=== PATIENT | female | born 1975 | race Caucasian/White ===

== ENCOUNTER → 2017-01-15 | Outpatient (REF) | payer OTHER | LOC: M LAB REF 17:11 | PROVIDERS: ATTEND Nurse Practitioner Family | DX: R82.99 Other abnormal findings in urine (principal) ==

== ENCOUNTER → 2017-07-20 | Outpatient (CLI) | payer OTHER ==
[2017-07-20 13:08] LABS: HEMOGLOBIN 14.3 g/dl (12.0-16.0); MEAN CORPUSCULAR HEMOGLOBIN 30.6 pg (27.0-33.0); MEAN CORPUSCULAR HGB CONC 33.3 g/dl (32.0-36.5); MEAN CORPUSCULAR VOLUME 91.9 fl (80.0-96.0); PLATELET COUNT, AUTOMATED 161 10^3/uL (150-450); RED BLOOD COUNT 4.68 10^6/uL (4.00-5.40); RED CELL DISTRIBUTION WIDTH 13.7 % (11.5-14.5); WHITE BLOOD COUNT 5.2 10^3/uL (4.0-10.0)
[2017-07-20 13:40] LABS: ALBUMIN 3.4 GM/DL (3.2-5.2); ALBUMIN/GLOBULIN RATIO 0.76 (1.00-1.93); ALKALINE PHOSPHATASE 116 U/L (45-117); ALT/SGPT 137 U/L (12-78); ANION GAP 5 MEQ/L (8-16); AST/SGOT 210 U/L (7-37); BLOOD UREA NITROGEN 10 MG/DL (7-18); CARBON DIOXIDE LEVEL 28 MEQ/L (21-32); CHLORIDE LEVEL 108 MEQ/L (98-107); CREATININE FOR GFR 0.67 MG/DL (0.55-1.30); GLOMERULAR FILTRATION RATE > 60.0 (>60); GLUCOSE, FASTING 102 MG/DL (70-100); POTASSIUM SERUM 3.9 MEQ/L (3.5-5.1); SODIUM LEVEL 141 MEQ/L (136-145); THYROXINE (T4) 9.8 UG/DL (4.5-12.0); TOTAL PROTEIN 7.9 GM/DL (6.4-8.2)
[2017-07-21 14:15] LABS: H PYLORI SERUM QUANT IgG ABY 0.36 (0.00-0.79)
== END ==
LOC: M LAB 12:33
DX: K29.70 Gastritis, unspecified, without bleeding (principal); R53.83 Other fatigue; L65.9 Nonscarring hair loss, unspecified
CPT/HCPCS: 84443

== ENCOUNTER → 2017-12-14 | Outpatient (CLI) | payer OTHER ==
[2017-12-14 10:30] LABS: ALBUMIN 3.1 GM/DL (3.2-5.2); ALKALINE PHOSPHATASE 108 U/L (45-117); ALT/SGPT 157 U/L (12-78); ANION GAP 8 MEQ/L (8-16); AST/SGOT 217 U/L (7-37); BILIRUBIN,DIRECT 0.6 MG/DL (0.0-0.2); BILIRUBIN,TOTAL 1.1 MG/DL (0.2-1.0); BLOOD UREA NITROGEN 13 MG/DL (7-18); CALCIUM LEVEL 8.4 MG/DL (8.5-10.1); CARBON DIOXIDE LEVEL 28 MEQ/L (21-32); CHLORIDE LEVEL 109 MEQ/L (98-107); CREATININE FOR GFR 0.67 MG/DL (0.55-1.30); GLOMERULAR FILTRATION RATE > 60.0 (>60); GLUCOSE, FASTING 93 MG/DL (70-100); PHOSPHORUS LEVEL 5.1 MG/DL (2.5-4.9); POTASSIUM SERUM 3.9 MEQ/L (3.5-5.1); SODIUM LEVEL 145 MEQ/L (136-145); TOTAL PROTEIN 7.5 GM/DL (6.4-8.2)
[2017-12-18 00:07] LABS: HEPATITIS C QUANTITATION 371370 IU/mL (.)
== END ==
LOC: M LAB 09:10
DX: B18.2 Chronic viral hepatitis C (principal)
CPT/HCPCS: 80076

== ENCOUNTER 2019-05-10 15:19 | Emergency (ER) | payer OTHER ==
[~2019-05-10] VITALS: Ht 162.6 cm; Wt 88.8 kg
[2019-05-10 15:19] VITALS: BP 128/71
[2019-05-10] MEDS ORDERED: OMEP-218 (15:27)
[2019-05-10] MEDS ORDERED: KETOROLAC 60 MG/2 ML VIAL (J1885) IM ONE (15:45)
--- NOTE | 2019-05-11 07:55 | REP ---
REASON: Pain and swelling. No trauma. FINDINGS: The compartments are symmetric and relatively well maintained. There is no acute fracture or destructive osseous lesion. Electronically Signed by Sourav Quiroga DO 05/11/2019 09:23 A
== END 2019-05-10 17:04 | disposition home or self-care (01) ==
LOC: M ED 15:19
DX: M25.561 Pain in right knee (principal); I83.91 Asymptomatic varicose veins of right lower extremity; Z79.899 Other long term (current) drug therapy
CPT/HCPCS: 73564; 96372; 99284; J1885

== ENCOUNTER 2019-08-21 13:08 | Emergency (ER) | payer OTHER ==
[~2019-08-21] VITALS: Ht 165.1 cm; Wt 94.1 kg
[~2019-08-21 13:08] MED LIST: OMEP-218
[2019-08-21 14:47] LABS: BASO % 0.6 % (0.0-1.0); EOS # 0.1 10^3/uL (0.0-0.5); EOS % 2.5 % (0.0-3.0); HEMATOCRIT 37.4 % (36.0-47.0); HEMOGLOBIN 12.7 g/dl (12.0-15.5); LYMPH # 1.3 10^3/uL (1.5-5.0); LYMPH % 26.4 % (24.0-44.0); MEAN CORPUSCULAR HEMOGLOBIN 32.7 pg (27.0-33.0); MEAN CORPUSCULAR VOLUME 96.4 fl (80.0-96.0); MONO # 0.4 10^3/uL (0.0-0.8); MONO % 8.6 % (0.0-5.0); NEUTROPHILS % 61.7 % (36.0-66.0); RED BLOOD COUNT 3.88 10^6/uL (4.00-5.40); WHITE BLOOD COUNT 4.8 10^3/uL (4.0-10.0)
[2019-08-21 15:04] LABS: HCG, SERUM QUALITATIVE NEGATIVE (NEGATIVE)
--- NOTE | 2019-08-21 15:05 | REP ---
Bilateral lower extremity Duplex Doppler venous ultrasound: Real time compression and duplex Doppler interrogation of the bilateral lower extremity deep venous system is performed. Bilaterally, the common femoral, superficial femoral and popliteal veins are fully compressible with transducer pressure and demonstrate normal spontaneous and phasic flow, without evidence of deep venous thrombosis. Impression: No evidence of deep venous thrombosis of the bilateral lower extremity femoral popliteal venous system. Electronically Signed by Blake Otto MD 08/21/2019 02:57 P
[2019-08-21 15:08] LABS: BLOOD UREA NITROGEN 12 MG/DL (7-18); CALCIUM LEVEL 7.8 MG/DL (8.5-10.1); CARBON DIOXIDE LEVEL 24 MEQ/L (21-32); CHLORIDE LEVEL 109 MEQ/L (98-107); CREATININE FOR GFR 0.59 MG/DL (0.55-1.30); GLOMERULAR FILTRATION RATE > 60.0 (>58); GLUCOSE, FASTING 95 MG/DL (70-100); NT-PRO BNP 91 PG/ML (<125); POTASSIUM SERUM 3.7 MEQ/L (3.5-5.1); SODIUM LEVEL 140 MEQ/L (136-145)
[2019-08-21 15:23] LABS: PLATELET COUNT, AUTOMATED 97 10^3/uL (150-450)
[2019-08-21 15:29] VITALS: BP 124/76
== END 2019-08-21 16:20 | disposition home or self-care (01) ==
LOC: M ED 13:08
DX: D69.6 Thrombocytopenia, unspecified (principal); R60.0 Localized edema; F11.20 Opioid dependence, uncomplicated; Z86.19 Personal history of other infectious and parasitic diseases; K29.70 Gastritis, unspecified, without bleeding; Z87.891 Personal history of nicotine dependence

== ENCOUNTER → 2019-11-19 | Outpatient (REF) | payer OTHER, MEDICAID ==
[2019-11-19 17:39] LABS: BASO % 0.6 % (0.0-1.0); EOS # 0.1 10^3/uL (0.0-0.5); HEMATOCRIT 36.8 % (36.0-47.0); HEMOGLOBIN 12.3 g/dl (12.0-15.5); LYMPH # 1.3 10^3/uL (1.5-5.0); LYMPH % 39.2 % (24.0-44.0); MEAN CORPUSCULAR HEMOGLOBIN 32.1 pg (27.0-33.0); MEAN CORPUSCULAR HGB CONC 33.4 g/dl (32.0-36.5); MEAN CORPUSCULAR VOLUME 96.1 fl (80.0-96.0); MONO # 0.4 10^3/uL (0.0-0.8); MONO % 12.6 % (0.0-5.0); NEUTROPHILS # 1.6 10^3/uL (1.5-8.5); NEUTROPHILS % 45.6 % (36.0-66.0); PLATELET COUNT, AUTOMATED 104 10^3/uL (150-450); RED BLOOD COUNT 3.83 10^6/uL (4.00-5.40); WHITE BLOOD COUNT 3.4 10^3/uL (4.0-10.0)
[2019-11-19 17:56] LABS: ALBUMIN 2.2 GM/DL (3.2-5.2); ALT/SGPT 37 U/L (12-78); BILIRUBIN,TOTAL 2.2 MG/DL (0.2-1.0); BLOOD UREA NITROGEN 7 MG/DL (7-18); CARBON DIOXIDE LEVEL 28 MEQ/L (21-32); CHLORIDE LEVEL 108 MEQ/L (98-107); CHOLESTEROL LEVEL 126 MG/DL (<200); CHOLESTEROL RISK RATIO 3.073 (<5); CREATININE FOR GFR 0.52 MG/DL (0.55-1.30); FREE T4 0.88 NG/DL (0.76-1.46); GLOMERULAR FILTRATION RATE > 60.0 (>58); GLUCOSE, FASTING 93 MG/DL (70-100); HDL CHOLESTEROL 41 MG/DL (>40); LDL CHOLESTEROL 67 MG/DL (<100); NON-HDL-C 85 MG/DL; POTASSIUM SERUM 4.1 MEQ/L (3.5-5.1); SODIUM LEVEL 140 MEQ/L (136-145); TOTAL 25(OH) VITAMIN D 11.8 NG/ML (30.0-100.0); TRIGLYCERIDES LEVEL 92 MG/DL (<150)
[2019-11-19 18:14] LABS: HEMOGLOBIN A1c 4.2 %
[2019-11-19 18:35] LABS: HIV 1&2 SCREEN CENTAUR NEGATIVE (NEGATIVE)
[2019-11-21 09:14] LABS: HEPATITIS B SURFACE ANTIBODY POSITIVE (POSITIVE)
[2019-11-21 09:23] LABS: HEPATITIS B SURFACE ANTIGEN NEGATIVE (NEGATIVE)
[2019-11-21 10:00] LABS: HEPATITIS C VIRUS ABY INDEX > 11.0 INDEX (<0.8)
[2019-11-26 23:13] LABS: HEPATITIS A IgG TOTAL Positive (Negative); HEPATITIS B CORE ANTIBODY IGG Negative (Negative); HEPATITIS C QUANTITATION 127610 IU/mL (.); HEPATITIS C VIRUS GENOTYPE 1b (.)
== END ==
LOC: M LAB REF 16:44
PROVIDERS: ATTEND Nurse Practitioner Family
DX: R60.0 Localized edema (principal); B17.10 Acute hepatitis C without hepatic coma

== ENCOUNTER 2020-05-20 14:21 | Emergency (ER) | payer OTHER ==
[~2020-05-20] VITALS: Ht 165.1 cm; Wt 88.6 kg
[2020-05-20] MEDS ORDERED: KETOROLAC 30 MG/ML 1ML VIAL IV ONE (15:00)
--- NOTE | 2020-05-20 15:18 | REP ---
INDICATION: cp. COMPARISON: Comparison chest x-ray July 07, 2014.. TECHNIQUE: Sitting AP portable chest x-ray. FINDINGS: Today's view is rotated slightly to the left and taken at a lesser level of inspiration than on the prior study. There is increased density behind the heart in the left lower lobe and this obscures the left hemidiaphragm on today's chest x-ray. There is also platelike atelectasis in the left base. Pulmonary vasculature is somewhat congested bilaterally. No right-sided infiltrate is seen. No bony abnormality. IMPRESSION: Suspected infiltrate left lower lobe obscuring left hemidiaphragm. A small quantity of pleural fluid cannot be excluded. There is also platelike atelectasis in the left base. Some vascular congestion. <Electronically signed by Ricky Chirinos > 05/20/20 [id number]
[2020-05-20 15:21] LABS: BASO % 0.3 % (0.0-1.0); EOS # 0.1 10^3/uL (0.0-0.5); EOS % 0.7 % (0.0-3.0); HEMATOCRIT 39.6 % (36.0-47.0); HEMOGLOBIN 12.9 g/dl (12.0-15.5); LYMPH # 1.1 10^3/uL (1.5-5.0); MEAN CORPUSCULAR HEMOGLOBIN 31.8 pg (27.0-33.0); MEAN CORPUSCULAR HGB CONC 32.6 g/dl (32.0-36.5); MEAN CORPUSCULAR VOLUME 97.5 fl (80.0-96.0); MONO # 0.6 10^3/uL (0.0-0.8); MONO % 9.1 % (0.0-5.0); NEUTROPHILS # 5.1 10^3/uL (1.5-8.5); NEUTROPHILS % 73.6 % (36.0-66.0); PLATELET COUNT, AUTOMATED 167 10^3/uL (150-450); RED BLOOD COUNT 4.06 10^6/uL (4.00-5.40); WHITE BLOOD COUNT 6.9 10^3/uL (4.0-10.0)
[2020-05-20] MEDS ORDERED: ISOVUE-370 76% 100ML VIAL As Ordered ONE (15:33)
--- NOTE | 2020-05-20 16:11 | REP ---
INDICATION: h/o PE. COMPARISON: None TECHNIQUE: 100 cc Isovue 370 FINDINGS: There is less than optimal visualization of the pulmonary arterial vasculature to such a degree that small pulmonary emboli could be obscured. No large 1st, 2nd, or even 3rd order pulmonary emboli are identified. Limited evaluation of the thoracic aorta shows no gross abnormality. There is no evidence of mediastinal or hilar adenopathy. There is a small left pleural effusion. The osseous structures are within normal limits. Evaluation of the lung palomino shows patchy opacities throughout the left lower lobe with a round 3.7 x 2.7 by 2.8 cm sized mass like area of possible consolidation. The imaged upper abdomen shows ascites and splenomegaly along with a nodular hepatic surface. IMPRESSION: 1. There is no evidence of a pulmonary embolus, however, the examination is limited as described above. 2. Small left pleural effusion with abnormal left lower lobe findings as described above. Pneumonia versus atelectasis versus possible neoplasm. These findings represent a change when compared to lung base images obtained during abdominal and pelvic CT scanning of 04/24/2016. 3. Upper abdominal findings as described above. The ascites and appearance of the liver suggests cirrhosis but this needs to be correlated clinically. Those findings represent a change compared to the prior abdominal and pelvic CT scanning of 04/24/2016. Splenomegaly seen today was appreciated on that prior exam. <Electronically signed by Sourav Quiroga > 05/20/20 [id number]
[2020-05-20] MEDS ORDERED: DOXY100C37 PO (16:50)
[2020-05-20 17:32] VITALS: BP 132/61
--- NOTE | 2020-05-21 10:56 | ED PDOC ---
Post-Departure Follow-Up dr kelley and [facility] faxed formal report of cta chest for fu Hansa Tillman MD May 21, 2020 10:56
== END 2020-05-20 17:35 | disposition home or self-care (01) ==
LOC: EDBD 14:21 → M ED 14:21
DX: J18.9 Pneumonia, unspecified organism (principal); Z86.19 Personal history of other infectious and parasitic diseases; F19.10 Other psychoactive substance abuse, uncomplicated
CPT/HCPCS: 36415; 71045; 71275; 80047; 85025; 96374; 99284; J1885; Q9967

== ENCOUNTER 2020-06-03 16:35 | Inpatient (IN) | payer OTHER ==
[~2020-06-03] VITALS: Ht 165.1 cm; Wt 86.7 kg
[~2020-06-03 16:35] MED LIST changes: +DOXY100C37 PO
[2020-06-03 19:13] LABS: BASO % 0.3 % (0.0-1.0); EOS % 0.2 % (0.0-3.0); HEMATOCRIT 38.7 % (36.0-47.0); HEMOGLOBIN 12.7 g/dl (12.0-15.5); LYMPH # 1.2 10^3/uL (1.5-5.0); MEAN CORPUSCULAR HEMOGLOBIN 32.7 pg (27.0-33.0); MEAN CORPUSCULAR HGB CONC 32.8 g/dl (32.0-36.5); MEAN CORPUSCULAR VOLUME 99.7 fl (80.0-96.0); MONO # 1.6 10^3/uL (0.0-0.8); MONO % 10.2 % (0.0-5.0); NEUTROPHILS # 12.3 10^3/uL (1.5-8.5); NEUTROPHILS % 80.8 % (36.0-66.0); PLATELET COUNT, AUTOMATED 197 10^3/uL (150-450); RED BLOOD COUNT 3.88 10^6/uL (4.00-5.40); WHITE BLOOD COUNT 15.2 10^3/uL (4.0-10.0)
[2020-06-03 19:33] LABS: ALBUMIN 1.9 GM/DL (3.2-5.2); ALT/SGPT 52 U/L (12-78); AMYLASE 36 U/L (25-115); BILIRUBIN,DIRECT 4.4 MG/DL (0.0-0.2); BILIRUBIN,TOTAL 6.5 MG/DL (0.2-1.0); BLOOD UREA NITROGEN 22 MG/DL (7-18); CALCIUM LEVEL 8.5 MG/DL (8.5-10.1); CARBON DIOXIDE LEVEL 28 MEQ/L (21-32); CHLORIDE LEVEL 100 MEQ/L (98-107); CREATININE FOR GFR 0.87 MG/DL (0.55-1.30); GLOMERULAR FILTRATION RATE > 60.0 (>58); GLUCOSE, FASTING 77 MG/DL (70-100); LIPASE 110 U/L (73-393); NT-PRO BNP 85 PG/ML (<125); POTASSIUM SERUM 3.9 MEQ/L (3.5-5.1); SODIUM LEVEL 135 MEQ/L (136-145); TOTAL PROTEIN 7.4 GM/DL (6.4-8.2)
[2020-06-03 19:34] LABS: HCG, SERUM QUALITATIVE NEGATIVE (NEGATIVE)
[2020-06-03 19:37] LABS: INR 1.28; PROTHROMBIN TIME 16.3 SECONDS (12.5-14.3)
[2020-06-03 19:38] LABS: PARTIAL THROMBOPLASTIN TIME 35.5 SECONDS (24.2-38.5)
[2020-06-03] MEDS ORDERED: ISOVUE-370 76% 100ML VIAL As Ordered ONE (19:50)
[2020-06-03] MEDS ORDERED: PIPERACILLIN/TAZOBACTAM SOD 4.5 GM in D5W MINI-BAG PLUS 50 ML IV ONE (20:15)
[2020-06-03] MEDS ORDERED: NS 1,000 ML IV ONE (20:15)
[2020-06-03] MEDS ORDERED: IBUP200T45 PO (20:44)
--- NOTE | 2020-06-03 21:01 | REPVR ---
PROCEDURE INFORMATION: Exam: US Duplex Left Lower Extremity Veins, Limited Exam date and time: 06/03/2020 7:17 PM Age: 44 years old Clinical indication: Edema, localized; Lower extremity, left; Additional info: Swelling TECHNIQUE: Imaging protocol: Real-time Duplex ultrasound of the Left Lower Extremity with 2-D locke scale, color Doppler flow and spectral waveform analysis with image documentation. Limited exam focused on the left lower extremity veins. COMPARISON: US Duplex, Ext LOWER veins, bilat 08/21/2019 2:50 PM FINDINGS: Left deep veins: The common femoral, femoral and popliteal veins are patent without thrombus. Normal compressibility, augmentation response and Doppler waveforms. Left superficial veins: Saphenofemoral junction is patent without thrombus. Soft tissues: Unremarkable. IMPRESSION: No evidence of deep vein thrombosis from the left common femoral to the popliteal veins. Electronically signed by: Onel Martínez On 06/03/2020 21:01:26 PM
--- NOTE | 2020-06-03 21:40 | REPVR ---
PROCEDURE INFORMATION: Exam: CT Abdomen And Pelvis With Contrast Exam date and time: 06/03/2020 8:03 PM Age: 44 years old Clinical indication: Abdominal pain; Generalized; Additional info: Ascites, abdominal pain TECHNIQUE: Imaging protocol: Computed tomography of the abdomen and pelvis with intravenous contrast. Radiation optimization: All CT scans at this facility use at least one of these dose optimization techniques: automated exposure control; mA and/or kV adjustment per patient size (includes targeted exams where dose is matched to clinical indication); or iterative reconstruction. Contrast material: ISOVUE 370; Contrast volume: 100 ml; Contrast route: INTRAVENOUS (IV); COMPARISON: CT ABD PELVIS W/O CONTRAST 04/24/2016 12:51 PM FINDINGS: Lungs: Atelectasis or consolidation of the left lower lobe. Pleural space: There is a moderate left pleural effusion with pleural enhancement enhancement and mild edema in the left paramediastinal fat. Liver: The liver has a shrunken nodular cirrhotic morphology. No liver masses are seen. Gallbladder and bile ducts: The gallbladder is distended. No gallbladder calculi or wall thickening are seen. Pancreas: Normal. No ductal dilation. Spleen: Mild splenomegaly. Adrenal glands: Normal. No mass. Kidneys and ureters: Normal. No hydronephrosis. Stomach and bowel: Unremarkable. No obstruction. No mucosal thickening. Appendix: No evidence of appendicitis. Intraperitoneal space: Moderate volume of ascites in the abdomen and pelvis. Vasculature: Portal vein is patent. Gastroesophageal and mesenteric varices are noted. Aorta is normal size. No aneurysm or dissection. Lymph nodes: Unremarkable. No enlarged lymph nodes. Urinary bladder: Unremarkable as visualized. Reproductive: Unremarkable as visualized. Bones/joints: There are degenerative changes in the spine and pelvis. Soft tissues: Generalized subcutaneous edema. IMPRESSION: 1. Cirrhotic liver morphology with moderate volume of abdominal and pelvic ascites, gastroesophageal and mesenteric varices, and splenomegaly. 2. Distended gallbladder. Consider gallbladder ultrasound follow-up if there is concern for acute cholecystitis. 3. Left pleural effusion and basilar airspace consolidation. Peripheral enhancement in the effusion raises concern for infection. See chest CT report. Electronically signed by: Vidal Winters On 06/03/2020 21:40:19 PM
--- NOTE | 2020-06-03 21:46 | REPVR ---
PROCEDURE INFORMATION: Exam: CT Angiography Chest With Contrast Exam date and time: 06/03/2020 8:03 PM Age: 44 years old Clinical indication: Shortness of breath; Additional info: Ascites, abdominal pain, SOB TECHNIQUE: Imaging protocol: Computed tomographic angiography of the chest with intravenous contrast. 3D rendering (Not supervised by radiologist): MIP and/or 3D reconstructed images were created by the technologist. Radiation optimization: All CT scans at this facility use at least one of these dose optimization techniques: automated exposure control; mA and/or kV adjustment per patient size (includes targeted exams where dose is matched to clinical indication); or iterative reconstruction. Contrast material: ISOVUE 370; Contrast volume: 100 ml; Contrast route: INTRAVENOUS (IV); COMPARISON: CT ANGIO CHEST 05/20/2020 3:36 PM FINDINGS: Pulmonary arteries: Normal. No pulmonary emboli. Aorta: Unremarkable. No aortic aneurysm. No aortic dissection. Lungs: Airspace consolidation and volume loss in the left lung. Right lung is clear. Airways are clear. 5 mm noncalcified nodule in the right lower lobe. Pleural space: There is a large left pleural effusion. Mild pleural enhancement is noted in the inferior component of the effusion. There is a separate smaller fusion in the upper left hemithorax. No pleural effusion on the right. No pneumothorax. Heart: No cardiomegaly. No pericardial effusion. Mild edema in the left pericardial fat. Lymph nodes: Unremarkable. No enlarged lymph nodes. Bones/joints: Unremarkable. No acute fracture. Soft tissues: Unremarkable. IMPRESSION: 1. Large left pleural effusion with pleural enhancement concerning for empyema. 2. Airspace consolidation and volume loss in the left lung. 3. 5 mm right lower lobe nodule. For patients at low risk (minimal or absent history of smoking and of other known risk factors), no routine follow-up is indicated. For patients at high risk (history of smoking or of other known risk factors), consider optional CT Chest at 12 months. (Reference: Rahel) 4. See abdomen CT report for abdominal findings. REFERENCES: Rahel Cordon et al. Guidelines for Management of Incidental Pulmonary Nodules Detected on CT Images: From the Fleischner Society 2017. Radiology. 2017;284(1):228-243. Electronically signed by: Vidal Winters On 06/03/2020 21:46:36 PM
[2020-06-03 22:08] LABS: NT-PRO BNP 84 PG/ML (<125)
[2020-06-03] MEDS ORDERED: LEVALBUTEROL 1.25 MG/0.5 ML CONCENTRATE NEB NEB PRN (22:45)
[2020-06-03] MEDS ORDERED: BISACODYL 10 MG SUPP PR PRN (22:45)
[2020-06-03] MEDS ORDERED: ACETAMINOPHEN TAB 650MG DOSE (2X325MG) PO PRN (22:45)
[2020-06-03 22:53] LABS: HCG, SERUM QUALITATIVE NEGATIVE (NEGATIVE)
--- NOTE | 2020-06-03 23:12 | HPEPDOC ---
[facility] Medical History & Physical Date of Admission Jun 03, 2020 Date of Service: Jun 03, 2020 Other Provider Charity PEÑA Attending Physician: JUDY MASON MD History and Physical TIME OF SERVICE: 11 PM CHIEF COMPLAINT:, Abdominal swelling HISTORY OF PRESENT ILLNESS: This 44-year-old female presented to her PCP with complaints of dry cough without runny nose and without muscle aches and was diagnosed with left-sided pneumonia. She was started on doxycycline which she from May 20 to May 28, but during the course of taking the medication she noticed that her abdomen became swollen and she developed left lower abdominal pressure. She also developed bilateral leg swelling with the left leg being more swollen than the right, and has been told that her eyes look more yellow than usual. Despite completing the course of antibiotics, her cough has persisted and she had a fever of about 100.8 at home. The patient came to the hospital at the request of her PCP, who according to the patient felt that the abdominal swelling and lower leg swelling may be related to the antibiotics. REVIEW OF SYSTEMS: 12 point review of systems negative except as listed in HPI PAST MEDICAL/ SURGICAL HISTORY: Hepatitis C diagnosed 12 years ago, she didn't complete treatment Thrombocytopenia, likely due to reduced thrombopoietin production in the setting of liver failure Remote history of anxiety Has had a hernia repair SOCIAL HISTORY: She is a former smoker She drinks alcohol socially She doesn't use recreational drugs She has a remote history of heroin use about 20 years ago FAMILY HISTORY: Her sister has diabetes. Her mother, maternal aunt, and maternal cousin had breast cancer ALLERGIES: Please see below. HOME MEDICATIONS: Please see below. PHYSICAL EXAMINATION: VITAL SIGNS: Please see below. GEN: well-nourished / well developed/ slightly anxious INTEGUMENT: not flushed/ jaundice HEENT: lips acyanotic /mucus membranes moist and pink / sclera icteric/ + abdominojugular reflux CVS: RRR/NMRG/ radial pulses intact / +2 BLE extremity edema , more prominent at the left LUNGS: able to speak full sentences without stopping to take a breath / no coughing / lungs are clear to auscultation bilaterally on room air ABDOMEN: Contour ( distended) / firm / soft & slightly tender with palpation MSK/EXTREMITIES: NCAT / range of motion intact in all 4 extremities NEURO: CN 2-12 are grossly intact / speech is not dysarthric PSYCH: alert and oriented to person place and time/ able to understand and follow all commands LABORATORY DATA: 06/04/20 06:21 IMAGING: CT chest."IMPRESSION: 1. Large left pleural effusion with pleural enhancement concerning for empyema. 2. Airspace consolidation and volume loss in the left lung. 3. 5 mm right lower lobe nodule. For patients at low risk (minimal or absent history of smoking and of other known risk factors), no routine follow-up is indicated. For patients at high risk (history of smoking or of other known risk factors), consider optional CT Chest at 12 months. (Reference: Rahel) 4. See abdomen CT report for abdominal findings." CT abdomen and pelvis "IMPRESSION: 1. Cirrhotic liver morphology with moderate volume of abdominal and pelvic ascites, gastroesophageal and mesenteric varices, and splenomegaly. 2. Distended gallbladder. Consider gallbladder ultrasound follow-up if there is concern for acute cholecystitis. 3. Left pleural effusion and basilar airspace consolidation. Peripheral enhancement in the effusion raises concern for infection. See chest CT report." Left lower extremity ultrasound "IMPRESSION: No evidence of deep vein thrombosis from the left common femoral to the popliteal veins." MICROBIOLOGY: Please see below. ASSESSMENT: Ms. Dong is a 44-year-old female with a history of liver cirrhosis likely secondary to hepatitis C who presented with complaints of persistent cough, and acute onset of abdominal swelling and bilateral lower extremity swelling after completing a course of doxycycline. Her symptoms are likely due to decompensated liver failure possibly triggered by doxycycline use. She also has of a large left-sided pleural effusion. PLAN: 1. Decompensated liver cirrhosis She has multiple complications including portal hypertension based on the presence of esophageal, gastric, and mesenteric versus along with splenomegaly. Dr. Echeverria for evaluation of thrombocytopenia, which is likely due to reduced thrombopoietin production. The liver cirrhosis is likely due to untreated hepatitis C, but the acute decompensation may be due to doxycycline which can cause hepatotoxicity MELD Score = 18 points Plan: Admit to medical floor/ f/u strict Is and Os and daily weights / since his new onset ascites, I will ask the daytime team to IR consult for diagnostic paracentesis and analysis of the fluid to rule out spontaneous bacterial peritonitis and determine the SAAG score / AFTER paracentesis she may be started on Spironolactone 50mg PO w Lasix 20mg PO (which can be adjusted as needed but maintain a ratio of 100:40 ) / I will hold off additional antibiotics until after the paracentesis / since her MELD score is greater than 15 she should be referred to a Belt Tender on an out patient basis to determine if she is a candidate for liver transplant after completing treatment for Hep C; because she has esophageal varices, she should also have an EGD done on an out patient basis to determine the grade/severit of the varices and whether she is a candidate for propranolol 2. Pleural Effusion This may be related to portal hypertension or empyema in the setting of recent pneumonia. Plan: Follow-up with Dr. Multani to determine if she needs thoracentesis 3. SIRS Her WBC # and HR are elevated. The source may be SBP or empyema. She received Zosyn in the ER Plan: The daytime team may resume antibiotics after paracentesis and/or thoracentesis once we have confirmed the source of infection 4. Lactic acidosis Plan: f/u repeat lactic acid DVT PROPHYLAXIS: SCDs pending possible procedures DISPOSITION: home after more than 2 midnight's stay Vital Signs Vital Signs Date Time Temp Pulse Resp B/P (MAP) Pulse Ox O2 Delivery O2 Flow Rate FiO2 06/03/20 21:29 98.4 104 20 126/65 (85) 99 06/03/20 16:36 Room Air Laboratory Data Labs 24H Laboratory Tests 2 06/03/20 18:28: Immature Granulocyte % (Auto) 0.5, Neutrophils (%) (Auto) 80.8H, Lymphocytes (%) (Auto) 8.0L, Monocytes (%) (Auto) 10.2H, Eosinophils (%) (Auto) 0.2, Basophils (%) (Auto) 0.3, Neutrophils # (Auto) 12.3H, Lymphocytes # (Auto) 1.2L, Monocytes # (Auto) 1.6H, Eosinophils # (Auto) 0.0, Basophils # (Auto) 0.0, Nucleated Red Blood Cells % (auto) 0.0, Prothrombin Time 16.3H, Prothromb Time International Ratio 1.28, Activated Partial Thromboplast Time 35.5, Anion Gap 7L, Glomerular Filtration Rate > 60.0, Calcium Level 8.5, Total Bilirubin 6.5H, Direct Bilirubin 4.4H, Aspartate Amino Transf (AST/SGOT) 115H, Alanine Aminotransferase (ALT/SGPT) 52, Alkaline Phosphatase 143H, AG-Uhv-[id number]-Type Natriuretic Peptide 85, Total Protein 7.4, Albumin 1.9L, Albumin/Globulin Ratio 0.3L, Amylase Level 36, Lipase 110, Human Chorionic Gonadotropin, Qual NEGATIVE 06/03/20 19:00: Lactic Acid Level 3.1*H 06/03/20 21:00: Urine Color CRYSTAL, Urine Appearance HAZY, Urine pH 6.0, Urine Specific [place] 1.020, Urine Protein 1+H, Urine Glucose (UA) NEGATIVE, Urine Ketones NEGATIVE, Urine Blood NEGATIVE, Urine Nitrite NEGATIVE, Urine Bilirubin 1+H, Urine Urobilinogen 4.0H, Urine Leukocyte Esterase NEGATIVE, Urine WBC (Auto) 9H, Urine RBC (Auto) 1, Urine Hyaline Casts (Auto) 4, Urine Bacteria (Auto) NEGATIVE, Urine Squamous Epithelial Cells 1, Urine Mucus (Auto) SMALL, Urine Sperm (Auto) 06/03/20 21:20: BY-[id number]-Type Natriuretic Peptide 84, Human Chorionic Gonadotropin, Qual NEGATIVE CBC/BMP Laboratory Tests 06/03/20 18:28 Microbiology Microbiology 06/03/20 Blood Culture, Received Pending 06/03/20 Blood Culture, Received Pending Home Medications Scheduled PRN Ibuprofen (Ibu-200) 200 Mg Tablet, 400 MG PO Q6H PRN for PAIN Allergies Coded Allergies: No Known Allergies (Verified , 02/01/07) A-FIB/CHADSVASC A-FIB History Current/History of A-Fib/PAF?: No Current PO Anticoag Therapy: No JUDY MASON MD Jun 03, 2020 23:12
[2020-06-04] VITALS (17 sets, daily range): BP systolic 104–158; BP diastolic 55–78
[2020-06-04] MEDS: KCL 20MEQ IN D5/NS 1000ML 1,000 ML IV SCH ×2 (00:14→12:41)
[2020-06-04 01:06] LABS: RSV AMPLIFICATION NEGATIVE (NEGATIVE)
[2020-06-04] MEDS: LEVALBUTEROL 1.25 MG/0.5 ML CONCENTRATE NEB NEB SCH ×4 (04:46→18:19)
[2020-06-04 06:45] LABS: BASO # 0.1 10^3/uL (0.0-0.2); BASO % 0.5 % (0.0-1.0); EOS # 0.2 10^3/uL (0.0-0.5); EOS % 1.8 % (0.0-3.0); HEMATOCRIT 33.6 % (36.0-47.0); LYMPH # 0.4 10^3/uL (1.5-5.0); LYMPH % 4.2 % (24.0-44.0); MEAN CORPUSCULAR HEMOGLOBIN 32.8 pg (27.0-33.0); MEAN CORPUSCULAR HGB CONC 32.7 g/dl (32.0-36.5); MEAN CORPUSCULAR VOLUME 100.3 fl (80.0-96.0); MONO # 1.1 10^3/uL (0.0-0.8); MONO % 11.3 % (0.0-5.0); NEUTROPHILS # 8.3 10^3/uL (1.5-8.5); NEUTROPHILS % 81.6 % (36.0-66.0); PLATELET COUNT, AUTOMATED 155 10^3/uL (150-450); RED BLOOD COUNT 3.35 10^6/uL (4.00-5.40); WHITE BLOOD COUNT 10.1 10^3/uL (4.0-10.0)
[2020-06-04] MEDS: ONDANSETRON 4MG/2ML VIAL IV PRN (06:45)
[2020-06-04 06:56] LABS: INR 1.46; PROTHROMBIN TIME 18.1 SECONDS (12.5-14.3)
[2020-06-04 06:57] LABS: PARTIAL THROMBOPLASTIN TIME 37.4 SECONDS (24.2-38.5)
[2020-06-04 07:21] LABS: ALBUMIN 1.6 GM/DL (3.2-5.2); ALT/SGPT 43 U/L (12-78); BILIRUBIN,TOTAL 5.5 MG/DL (0.2-1.0); BLOOD UREA NITROGEN 20 MG/DL (7-18); CALCIUM LEVEL 7.8 MG/DL (8.5-10.1); CARBON DIOXIDE LEVEL 28 MEQ/L (21-32); CHLORIDE LEVEL 102 MEQ/L (98-107); CHOLESTEROL LEVEL 71 MG/DL (< 200); CPK CREATINE PHOSPHOKINASE 32 U/L (26-192); GLOMERULAR FILTRATION RATE > 60.0 (>58); GLUCOSE, FASTING 134 MG/DL (70-100); LDH LACTATE DEHYDROGENASE 198 U/L (84-246); PHOSPHORUS LEVEL 3.4 MG/DL (2.5-4.9); POTASSIUM SERUM 3.8 MEQ/L (3.5-5.1); SODIUM LEVEL 136 MEQ/L (136-145); TOTAL PROTEIN 6.4 GM/DL (6.4-8.2); TRIGLYCERIDES LEVEL 104 MG/DL (<150)
--- NOTE | 2020-06-04 08:57 | REP ---
INDICATION: pleural effusion. COMPARISON: Comparison chest x-ray May 20, 2020. TECHNIQUE: Two views.. FINDINGS: There is a large amount of pleural fluid in the left hemithorax opacifying the lower 2/3 of the left hemithorax. There is appearance of some loculated fluid superiorly and laterally on the left. The right lung is well inflated and clear. The right pleural angles are sharp. Heart is not felt to be enlarged. No bony abnormality is seen. Monitoring electrodes are noted. IMPRESSION: Large left pleural effusion. Much increased from the prior study.. <Electronically signed by Ricky Chirinos > 06/04/20 [id number]
[2020-06-04] MEDS: MOM 30ML SUSPENSION UDC PO SCH (09:00)
[2020-06-04] MEDS: DOCUSATE SODIUM 100MG CAPSULE PO SCH ×2 (09:00→21:02)
[2020-06-04] MEDS: PANTOPRAZOLE 40MG TAB (PROTONIX) PO SCH (09:00)
[2020-06-04] MEDS: HEPARIN SOD (PORCINE) 5000UNITS/ML 1ML VIAL/SYRINGE SC SCH ×2 (09:46→21:02)
[2020-06-04] MEDS ORDERED: flumazeniL 0.5 MG/5 ML VIAL As Ordered ONE (10:22)
[2020-06-04] MEDS ORDERED: MIDAZOLAM INJ 2MG/2ML VIAL (J2250 PER 1MG) As Ordered ONE (10:22)
[2020-06-04] MEDS ORDERED: LIDOCAINE 1% MDV 20ML VIAL As Ordered ONE (10:23)
[2020-06-04] MEDS ORDERED: KETOROLAC 30 MG/ML 1ML VIAL As Ordered ONE (10:28)
[2020-06-04] MEDS ORDERED: MIDAZOLAM INJ 2MG/2ML VIAL (J2250 PER 1MG) IV STA ×3 (10:30)
[2020-06-04] MEDS ORDERED: LIDOCAINE 1% MDV 20ML VIAL SC ONE ×2 (10:30)
[2020-06-04] MEDS ORDERED: KETOROLAC 30 MG/ML 1ML VIAL IV ONE (10:45)
[2020-06-04 11:46] LABS: APPEARANCE, BODY FLUID CLOTTED (CLEAR); PLEURAL FL COLOR RED (COLORLESS); SOURCE, BODY FLUID PLEURAL
[2020-06-04 11:49] LABS: PH BODY FLUID 7.383 UNITS (NOT ESTABLISHED); SOURCE, BODY FLUID pH PLEURAL
--- NOTE | 2020-06-04 11:49 | RO ---
OPERATIVE NOTE DATE OF OPERATION: 06/04/2020 PREPROCEDURE DIAGNOSIS: Left pleural effusion. POSTPROCEDURE DIAGNOSIS: Left pleural effusion. SURGEON: Rangel Multani M.D. PROCEDURE: Insertion of left lateral posterior chest tube. DESCRIPTION OF PROCEDURE: Under satisfactory moderate sedation eventually achieved with 6 mg of Versed, the patient was prepped and draped in the usual sterile fashion. Incision was made and tunnel was created in the chest with minimal difficulty. A #24 chest tube was placed and secured to the chest wall with #2 Tyvek suture. It drained 800 mL of serosanguineous fluid. The fluid was sent for requisite studies including cytology, hematology, and chemistries. The patient tolerated the procedure well. Chest x-ray is pending.
[2020-06-04 12:42] LABS: AMYLASE, BODY FLUID 27 U/L (NOT ESTABLISHED); CHOLESTEROL, BODY FLUID < 50 MG/DL (NOT ESTABLISHED); LDH, BODY FLUID 488 U/L (NOT ESTABLISHED); SOURCE, BODY FLUID ALBUMIN PLEURAL; SOURCE, BODY FLUID AMYLASE PLEURAL; SOURCE, BODY FLUID CHOL PLEURAL; SOURCE, BODY FLUID GLUCOSE PLEURAL; SOURCE, BODY FLUID LDH PLEURAL; SOURCE, BODY FLUID TOT PROTEIN PLEURAL; SOURCE, BODY FLUID TRIG PLEURAL; TOTAL PROTEIN, BODY FLUID 4.4 G/DL (NOT ESTABLISHED); TRIGLYCERIDE, BODY FLUID 49 MG/DL (NOT ESTABLISHED)
--- NOTE | 2020-06-04 12:44 | CR ---
CONSULTATION DATE: 06/04/2020 REASON FOR CONSULTATION: The patient is seen at the request of the hospital service and the emergency room for a pleural effusion with accompanying fevers. HISTORY OF PRESENT ILLNESS: The patient is a 44-year-old white female whose story starts in and around May 20 when she came to the emergency room complaining of fever and chills. She had a slight cough, but no sputum production. She also complained of chest pain in her left chest, which increased with taking a deep breath. She was told that she had pneumonia and was put on doxycycline 100 mg every 12 hours x10 days. Her fevers and sweats have persisted since then and the chest pain is becoming worse, particularly in the last two days. She also noted increased abdominal swelling and leg swelling. There is still no significant cough or sputum production. She has been taking her temperature throughout her course since early May and it is low-grade between 100.1 and 100.8. She still is having sweats. She does not complain of shortness of breath except with more moderate activity. PAST MEDICAL ILLNESSES: 1. Hepatitis C diagnosed 12 years ago. 2. Thrombocytopenia. 3. Anxiety. PAST SURGICAL HISTORY: Hernia repair. HOME MEDICATIONS: Ibuprofen p.r.n. pain TRAVEL HISTORY: She traveled to [place] last year. No travel history to the [facility] or foreign travel. EXPOSURES: No dogs, pets, birds, or cats at home. No known exposure to tuberculosis. 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 There is no asbestos exposure. 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 She has been abstinent since having checked into rehab at that time. She no longer uses any recreational drugs. She drinks alcohol socially and she does not smoke, although she was a former smoker many years ago. FAMILY HISTORY: Sister with diabetes. Mother, maternal aunt, and maternal cousin had breast cancer. ALLERGIES: None. REVIEW OF SYSTEMS: Constitutional: See HPI. Eyes: Has not noticed that she is jaundice. Without diplopia. Without amaurosis fugax. Nose without epistaxis. Mouth: Has her own teeth. Respiratory: See HPI. Cardiac: Without prior myocardial infarctions, orthopnea, or paroxysmal nocturnal dyspnea. Has noted increasing leg edema. Of note is that she has never been told that she has a heart murmur. GI: Some nausea without vomiting; without diarrhea, constipation, melena, hematochezia, or abdominal pain. : Without dysuria or hematuria. Neurologic: Without paresthesias, paralysis, or seizures. Psychiatric: Without pathological anxiety, depression, or psychosis. Endocrine: Without diabetes or thyroid disease. PHYSICAL EXAMINATION: GENERAL: Well-developed obese white female, in no acute respiratory distress. VITAL SIGNS: Temperature 102.3 with a heart rate of 114 in sinus rhythm. Respiratory rate of 22 without the use of accessory muscle. She was 91% saturated on room and her blood pressure 158/72. EYES: Pupils equal and reactive to light. Extraocular muscles intact. Sclerae are definitely icteric. NOSE: Without deformity. MOUTH: Shows her mucous membranes to be pink and moist. Lips and gums with no lesions. There is no thrush. Her teeth are in good repair. HEAD: Normocephalic. NECK: Supple. There is no jugular venous distention (JVD). No subcutaneous emphysema. Trachea is midline. She has 2+ carotid pulses. There is a transmitted murmur into her carotids. LUNGS: Show markedly decreased breath sounds, E:A egophony, and a dull percussion note on the left side. The right side shows normal vesicular sounds with a full percussion note. CARDIAC: Shows a systolic ejection murmur grade 2-3 at the right upper sternal border, which radiates to the carotids. I cannot feel her PMI. S1 and S2 are normal. ABDOMEN: Soft and nontender. Bowel sounds are positive. She is obese and I cannot detect a fluid wave. There is no hepatomegaly. No CVA tenderness. EXTREMITIES: Show 1+ pretibial edema. No calf tenderness. No differential swelling of the upper extremities. Her left leg is slightly more edematous than her right leg, however. NEUROLOGIC: Cranial nerves 2-12 intact. Normal gross motor and gross sensation. Gait is not tested. PSYCHIATRIC: Shows her to be awake, alert, and oriented x3 with appropriate mood and affect and conversational. INVESTIGATIONS: Her white count last night was 15.2 down to 10.1 today after starting antibiotics. Hemoglobin and hematocrit is 11.0 and 33.6 down from 12.7 and 38.7 after hydration. Platelet count is 155,000 with a differential that shows 81% neutrophils, 4% lymphocytes, and 11% monocytes. There were no immature forms or toxic granulations. Her chemistries this morning show normal electrolytes with a BUN and creatinine of 20 and 0.8 respectively. Glucose is 134 with a calcium of 7.8 with corresponding albumin of 1.6 down from 1.9 from last night. Her total bilirubin is 5.5 down from 6.5 yesterday in the emergency room. AST and ALT are 43 and 87 respectively. Amylase and lipase are 36 and 100 respectively within normal limits. PT/INR 18.1 and 1.46 respectively with a PTT of 37 seconds. She is COVID negative. RSV is negative. Influenza A and B are negative. There is no blood gas on her today or yesterday. IMAGING: Her chest x-ray shows a dense opacity in the right lower hemithorax and there is also an opacity in the lateral upper hemithorax. It looks to be a possible air fluid level on the lateral film near the apex. Her CT angiogram done last night confirms a very large pleural effusion. It looks to be somewhat loculated particularly in the upper extent, which does not communicate with the lower extent. She has ascites and a lumpy, bumpy, knobbly liver consistent with cirrhosis. Pancreas looks normal, and her adrenals are of normal configuration. There is no pericardial effusion. There is no mediastinal lymphadenopathy paratracheally; however, there are a few nodes along the aortic arch. IMPRESSION: 1. Pleural effusion and possible empyema. 2. Severe compression of left lung, particularly in the lower lobe. 3. Ascites. 4. Cirrhosis. 5. Jaundice secondary to the cirrhosis. 6. Status post hepatitis C, probably the cause of her cirrhosis. 7. Possible empyema. PLAN AND DISCUSSION: I will place a chest tube immediately. We will send it for the requisite studies to include cytologies, bacteriologies, chemistries, and hematologies. She is already on antibiotics consisting of Zosyn.
--- NOTE | 2020-06-04 12:47 | REP ---
INDICATION: s/p CT placement. 10:58 a.m. film. COMPARISON: Comparison chest x-ray is from 02/14 5 a.m. on this date. TECHNIQUE: Portable upright AP chest radiograph. FINDINGS: A left chest tube is been passed along the left hemidiaphragm. The amount of pleural fluid in the left chest is improved although pleural thickening and/or fluid persists along the lateral chest wall. There is a small quantity of air in the left pleural space and rounded density overlies the heart consistent with atelectatic lung. The right lung is clear.. IMPRESSION: Improved left pleural effusion status post left chest tube placement. Left lower lobe atelectasis with some subpulmonic air adjacent to the chest tube.. <Electronically signed by Ricky Chirinos > 06/04/20 [id number]
[2020-06-04] MEDS: PERCOCET 5MG/325MG TAB PO PRN (13:23)
[2020-06-04] MEDS: PIPERACILLIN/TAZOBACTAM SOD 3.375 GM in D5W MINI-BAG PLUS 50 ML IV SCH ×2 (14:36→21:02)
[2020-06-04] MEDS: VANCOMYCIN HCL 1,000 MG, VIAL MATE ADAPTER 1 EACH in D5W 250 ML IV SCH (16:31)
[2020-06-04] MEDS: NORCO, ANEXSIA 5/325MG TABLET (HYDROcodone/ACETAMINOPHEN) PO PRN (21:03)
--- NOTE | 2020-06-04 21:07 | IPNPDOC ---
Text Note Date of Service The patient was seen on 06/04/20. NOTE SUBJECTIVE: Febrile this am to 102.3. Complaining of left sided chest pain worse on deep breaths. Reports that her abdomen feels less tight and less bloated. VITAL SIGNS: Please see below. GEN: well-nourished / well developed/ slightly anxious HEENT: lips acyanotic /mucus membranes moist and pink / sclera icteric/ + abdominojugular reflux CVS: RRR/NMRG/ radial pulses intact / +2 BLE extremity edema , more prominent at the left LUNGS: diminished breath sounds on courtney left otherwise clear to auscultation. ABDOMEN: Mildly distended, soft, nontender, normal bowel sounds, ascites present. Extremities ; Bilateral pedal edema MSK/EXTREMITIES: NCAT / range of motion intact in all 4 extremities NEURO: CN 2-12 are grossly intact / speech is not dysarthric PSYCH: alert and oriented to person place and time/ able to understand and follow all commands Labs and Radiology: reviewed ASSESSMENT and plan: Ms. Dong is a 44-year-old female with a history of liver cirrhosis likely secondary to hepatitis C who presented with complaints of persistent cough, and acute onset of abdominal swelling and bilateral lower extremity swelling after completing a course of doxycycline. She was found to have decompensated liver cirrhosis and left sided pleural effusion. Pleural effusion/ Empyema/Sepsis s/p chest tube placement very thick and hemorrhagic Fluid work up has been sent Empirically started on vanc and zosyn. Decompensated liver cirrhosis with thrombocytopenia, portal hypertension, ascites due to untreated Hepatitis C. 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 MELD Score = 18 points Will start on lasix and aldactone. Cholestatic Jaundice due to cirrhosis of liver with congestion. Lactic acidosis probably due to cirrhosis of liver and infection DVT PROPHYLAXIS: SCDs VS,Fishbone, I+O VS, Fishbone, I+O Laboratory Tests 06/04/20 06:21 Vital Signs Date Time Temp Pulse Resp B/P (MAP) Pulse Ox O2 Delivery O2 Flow Rate FiO2 06/04/20 16:00 4.0 06/04/20 15:50 97.6 90 18 104/59 (74) 97 Nasal Cannula I&O- Last 24 Hours up to 6 AM 06/04/20 06:59 Intake Total 1225 ml Balance 1225 ml BETSY VERGARA MD Jun 04, 2020 21:06
[2020-06-05] VITALS: BP 105/59
[2020-06-05] MEDS: VANCOMYCIN HCL 1,000 MG, VIAL MATE ADAPTER 1 EACH in D5W 250 ML IV SCH ×2 (00:05→06:57)
[2020-06-05] MEDS: LEVALBUTEROL 1.25 MG/0.5 ML CONCENTRATE NEB NEB SCH ×4 (01:53→20:19)
[2020-06-05] MEDS: PIPERACILLIN/TAZOBACTAM SOD 3.375 GM in D5W MINI-BAG PLUS 50 ML IV SCH ×4 (02:43→20:55)
[2020-06-05 04:00] VITALS: BP 114/66
[2020-06-05] MEDS: PERCOCET 5MG/325MG TAB PO PRN ×3 (04:04→14:23)
[2020-06-05 05:38] LABS: BASO % 0.5 % (0.0-1.0); EOS # 0.4 10^3/uL (0.0-0.5); EOS % 6.4 % (0.0-3.0); HEMATOCRIT 30.3 % (36.0-47.0); HEMOGLOBIN 9.9 g/dl (12.0-15.5); LYMPH # 0.8 10^3/uL (1.5-5.0); LYMPH % 12.3 % (24.0-44.0); MEAN CORPUSCULAR HEMOGLOBIN 33.1 pg (27.0-33.0); MEAN CORPUSCULAR HGB CONC 32.7 g/dl (32.0-36.5); MEAN CORPUSCULAR VOLUME 101.3 fl (80.0-96.0); MONO # 1.2 10^3/uL (0.0-0.8); MONO % 18.4 % (0.0-5.0); NEUTROPHILS # 3.9 10^3/uL (1.5-8.5); NEUTROPHILS % 61.9 % (36.0-66.0); PLATELET COUNT, AUTOMATED 124 10^3/uL (150-450); RED BLOOD COUNT 2.99 10^6/uL (4.00-5.40); WHITE BLOOD COUNT 6.4 10^3/uL (4.0-10.0)
[2020-06-05 06:07] LABS: ALBUMIN 1.4 GM/DL (3.2-5.2); ALT/SGPT 39 U/L (12-78); BILIRUBIN,TOTAL 3.1 MG/DL (0.2-1.0); BLOOD UREA NITROGEN 22 MG/DL (7-18); CALCIUM LEVEL 7.6 MG/DL (8.5-10.1); CARBON DIOXIDE LEVEL 28 MEQ/L (21-32); CHLORIDE LEVEL 104 MEQ/L (98-107); CHOLESTEROL LEVEL 64 MG/DL (< 200); CPK CREATINE PHOSPHOKINASE 38 U/L (26-192); CREATININE FOR GFR 0.86 MG/DL (0.55-1.30); GLOMERULAR FILTRATION RATE > 60.0 (>58); GLUCOSE, FASTING 110 MG/DL (70-100); LDH LACTATE DEHYDROGENASE 173 U/L (84-246); PHOSPHORUS LEVEL 3.9 MG/DL (2.5-4.9); POTASSIUM SERUM 3.5 MEQ/L (3.5-5.1); SODIUM LEVEL 137 MEQ/L (136-145); TOTAL PROTEIN 5.8 GM/DL (6.4-8.2); TRIGLYCERIDES LEVEL 97 MG/DL (<150)
[2020-06-05 08:00] VITALS: BP 111/63
--- NOTE | 2020-06-05 08:30 | REP ---
INDICATION: pleural effusion COMPARISON: 06/04/2020 TECHNIQUE: PA and lateral. FINDINGS: Chest tube at the left base is identified and moderate to large multiloculated hydropneumothorax is appreciated. Underlying left-sided parenchymal disease cannot be excluded. The right hemithorax appears clear. Evaluation of the mediastinum and cardiac silhouette are limited but visualized portions appear normal/stable. IMPRESSION: 1. Left-sided chest tube identified with moderate to large multiloculated left-sided hydropneumothorax. <Electronically signed by Jason Johnson > 06/05/20 [id number]
[2020-06-05] MEDS: DOCUSATE SODIUM 100MG CAPSULE PO SCH ×2 (08:45→20:55)
[2020-06-05] MEDS: PANTOPRAZOLE 40MG TAB (PROTONIX) PO SCH (08:45)
[2020-06-05] MEDS: MOM 30ML SUSPENSION UDC PO SCH (08:46)
[2020-06-05] MEDS: HEPARIN SOD (PORCINE) 5000UNITS/ML 1ML VIAL/SYRINGE SC SCH ×2 (08:48→20:56)
--- NOTE | 2020-06-05 10:12 | REP ---
INDICATION: pleural effusion, lung entrapment? COMPARISON: 06/03/2020 TECHNIQUE: Axial noncontrast images from the thoracic inlet to the upper abdomen with coronal and sagittal reformations. This CT examination was performed using the following dose reduction techniques: Automated exposure control, adjustment of mA and/or kv according to the patient's size, and use of iterative reconstruction technique. FINDINGS: Chest tube at the left base is identified with a moderate hydropneumothorax demonstrating decreased pleural fluid as compared to prior examination. Areas of left lower lobe and lingular atelectasis/consolidation are relatively similar to prior examination. Few scattered mediastinal lymph nodes are again identified. Right lung is clear. Mediastinum demonstrates essentially normal/stable pulmonary vasculature, thoracic aorta and heart/pericardium. Limited upper abdomen demonstrates cirrhosis with evidence for portal hypertension including splenomegaly, ascites and scattered reactive lymph nodes. IMPRESSION: 1. Status post left chest tube with hydropneumothorax and somewhat decreased left pleural fluid. Left lower lobe and lingular opacities are essentially unchanged. Right hemithorax is clear. 2. Evidence for cirrhosis and portal hypertension again noted. <Electronically signed by Jason Johnson > 06/05/20 [id number]
[2020-06-05 12:00] VITALS: BP 119/69
--- NOTE | 2020-06-05 13:03 | IPNPDOC ---
Text Note Date of Service The patient was seen on 06/05/20. NOTE SUBJECTIVE: Reports that her abdomen feels less tight and less bloated. Has mild pain at the chest tube site. No fever for 24 hours. VITAL SIGNS: Please see below. GEN: well-nourished / well developed/ slightly anxious HEENT: lips acyanotic /mucus membranes moist and pink / sclera icteric/ + abdominojugular reflux CVS: RRR/NMRG/ radial pulses intact / +2 BLE extremity edema , more prominent at the left LUNGS: diminished breath sounds on the left with basal crackles. ABDOMEN: Mildly distended, soft, nontender, normal bowel sounds, ascites present. Extremities ; Bilateral pedal edema MSK/EXTREMITIES: NCAT / range of motion intact in all 4 extremities NEURO: CN 2-12 are grossly intact / speech is not dysarthric PSYCH: alert and oriented to person place and time/ able to understand and follow all commands Labs and Radiology: reviewed ASSESSMENT and plan: Ms. Dong is a 44-year-old female with a history of liver cirrhosis likely secondary to hepatitis C who presented with complaints of persistent cough, and acute onset of abdominal swelling and bilateral lower extremity swelling after completing a course of doxycycline. She was found to have decompensated liver cirrhosis and left sided pleural effusion. Pleural effusion/ Empyema/Sepsis s/p chest tube placement very thick and hemorrhagic fluid. More fluid today. Fluid work up has been sent Empirically started on vanc and zosyn. MRSA neg will dc vanco CT chest shows left hydropneumothorax with decreased efussion. THe ar left lower lobe and lingular opacities. Decompensated liver cirrhosis with thrombocytopenia, portal hypertension, ascites due to untreated Hepatitis C. 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 MELD Score = 18 points Will start on lasix and aldactone. Cholestatic Jaundice due to cirrhosis of liver with congestion. Lactic acidosis probably due to cirrhosis of liver and infection DVT PROPHYLAXIS: SCDs VS,Fishbone, I+O VS, Fishbone, I+O Laboratory Tests 06/05/20 05:15 Vital Signs Date Time Temp Pulse Resp B/P (MAP) Pulse Ox O2 Delivery O2 Flow Rate FiO2 06/05/20 12:00 97.6 85 18 119/69 (86) 95 Nasal Cannula 2.0 I&O- Last 24 Hours up to 6 AM 06/05/20 06:00 Intake Total 1960 ml Output Total 1275 ml Balance 685 ml BETSY VERGARA MD Jun 05, 2020 13:03
[2020-06-05] MEDS: SPIRONOLACTONE 25 MG TAB PO SCH (14:17)
[2020-06-05] MEDS: FUROSEMIDE 20 MG TAB PO SCH (14:17)
[2020-06-05 16:00] VITALS: BP 128/74
[2020-06-05] MEDS: KETOROLAC 30 MG/ML 1ML VIAL IV SCH (16:58)
[2020-06-05 20:00] VITALS: BP 100/54
[2020-06-05] MEDS: NORCO, ANEXSIA 5/325MG TABLET (HYDROcodone/ACETAMINOPHEN) PO PRN (20:56)
[2020-06-06] VITALS: BP 112/62
[2020-06-06] MEDS: PIPERACILLIN/TAZOBACTAM SOD 3.375 GM in D5W MINI-BAG PLUS 50 ML IV SCH ×4 (01:12→20:29)
[2020-06-06] MEDS: KETOROLAC 30 MG/ML 1ML VIAL IV SCH ×5 (01:12→22:52)
[2020-06-06 04:00] VITALS: BP 107/56
[2020-06-06] MEDS: LEVALBUTEROL 1.25 MG/0.5 ML CONCENTRATE NEB NEB SCH ×4 (04:13→20:52)
[2020-06-06 04:59] LABS: BASO % 0.6 % (0.0-1.0); EOS # 0.4 10^3/uL (0.0-0.5); HEMOGLOBIN 9.1 g/dl (12.0-15.5); LYMPH # 1.3 10^3/uL (1.5-5.0); LYMPH % 18.1 % (24.0-44.0); MEAN CORPUSCULAR HEMOGLOBIN 31.7 pg (27.0-33.0); MEAN CORPUSCULAR HGB CONC 31.4 g/dl (32.0-36.5); MONO # 1.1 10^3/uL (0.0-0.8); MONO % 15.8 % (0.0-5.0); NEUTROPHILS # 4.3 10^3/uL (1.5-8.5); NEUTROPHILS % 60.1 % (36.0-66.0); PLATELET COUNT, AUTOMATED 120 10^3/uL (150-450); RED BLOOD COUNT 2.87 10^6/uL (4.00-5.40); WHITE BLOOD COUNT 7.2 10^3/uL (4.0-10.0)
[2020-06-06 05:49] LABS: ALBUMIN 1.3 GM/DL (3.2-5.2); ALT/SGPT 37 U/L (12-78); BILIRUBIN,TOTAL 2.3 MG/DL (0.2-1.0); BLOOD UREA NITROGEN 21 MG/DL (7-18); CARBON DIOXIDE LEVEL 27 MEQ/L (21-32); CHLORIDE LEVEL 105 MEQ/L (98-107); CHOLESTEROL LEVEL 58 MG/DL (< 200); CPK CREATINE PHOSPHOKINASE 39 U/L (26-192); CREATININE FOR GFR 1.05 MG/DL (0.55-1.30); GLOMERULAR FILTRATION RATE > 60.0 (>58); GLUCOSE, FASTING 98 MG/DL (70-100); LDH LACTATE DEHYDROGENASE 198 U/L (84-246); PHOSPHORUS LEVEL 3.9 MG/DL (2.5-4.9); POTASSIUM SERUM 3.9 MEQ/L (3.5-5.1); SODIUM LEVEL 139 MEQ/L (136-145); TOTAL PROTEIN 5.6 GM/DL (6.4-8.2); TRIGLYCERIDES LEVEL 79 MG/DL (<150)
[2020-06-06 08:00] VITALS: BP 117/56
[2020-06-06] MEDS: MOM 30ML SUSPENSION UDC PO SCH (08:21)
[2020-06-06] MEDS: SPIRONOLACTONE 25 MG TAB PO SCH (08:21)
[2020-06-06] MEDS: FUROSEMIDE 20 MG TAB PO SCH (08:22)
[2020-06-06] MEDS: HEPARIN SOD (PORCINE) 5000UNITS/ML 1ML VIAL/SYRINGE SC SCH ×2 (08:23→20:33)
[2020-06-06] MEDS: NORCO, ANEXSIA 5/325MG TABLET (HYDROcodone/ACETAMINOPHEN) PO PRN (08:23)
[2020-06-06] MEDS: DOCUSATE SODIUM 100MG CAPSULE PO SCH (08:23)
[2020-06-06] MEDS: PANTOPRAZOLE 40MG TAB (PROTONIX) PO SCH (08:23)
--- NOTE | 2020-06-06 08:34 | REP ---
INDICATION: pleural effusion COMPARISON: 06/05/2020 TECHNIQUE: PA and lateral. FINDINGS: Left-sided chest tube in stable position. Moderate left hydropneumothorax may be slightly improved as compared to prior exam. Right hemithorax is clear. IMPRESSION: Moderate left hydropneumothorax may be minimally improved. No new acute process identified. <Electronically signed by Jason Johnson > 06/06/20 [id number]
--- NOTE | 2020-06-06 09:55 | IPNPDOC ---
Text Note Date of Service The patient was seen on 06/06/20. NOTE SUBJECTIVE: Feels better overall. Ambulating well. CXR today continues to show hydropneumothorax without much improvement. No further fever. VITAL SIGNS: Please see below. GEN: well-nourished / well developed/ slightly anxious HEENT: lips acyanotic /mucus membranes moist and pink / sclera icteric/ + abdominojugular reflux CVS: RRR/NMRG/ radial pulses intact / +2 BLE extremity edema , more prominent at the left LUNGS: diminished breath sounds on the left with basal crackles. ABDOMEN: Mildly distended, soft, nontender, normal bowel sounds, ascites present. Extremities ; Bilateral pedal edema MSK/EXTREMITIES: NCAT / range of motion intact in all 4 extremities NEURO: CN 2-12 are grossly intact / speech is not dysarthric PSYCH: alert and oriented to person place and time/ able to understand and follow all commands Labs and Radiology: reviewed ASSESSMENT and plan: Ms. Dong is a 44-year-old female with a history of liver cirrhosis likely secondary to hepatitis C who presented with complaints of persistent cough, and acute onset of abdominal swelling and bilateral lower extremity swelling after completing a course of doxycycline. She was found to have decompensated liver cirrhosis and left sided pleural effusion. Left Pleural effusion loculated with persistent hydropneumothorax/ Empyema s/p chest tube placement, not much drainage but CXR no improvement. probably loculated . Fluid Cultures negative. CT chest on 06/05 with left lower lobe and lingular opacities. management as per Dr Multani. Left lower lobe pneumonia continue zosyn. Decompensated liver cirrhosis with thrombocytopenia, portal hypertension, ascites due to untreated Hepatitis C. 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 MELD Score today = 14 points Started on lasix and aldactone. will refer to GI and ID on discharge. Cholestatic Jaundice due to cirrhosis of liver with congestion. improving. Lactic acidosis probably due to cirrhosis of liver and infection DVT PROPHYLAXIS: SCDs VS,Fishbone, I+O VS, Fishbone, I+O Laboratory Tests 06/06/20 04:48 Vital Signs Date Time Temp Pulse Resp B/P (MAP) Pulse Ox O2 Delivery O2 Flow Rate FiO2 06/06/20 08:23 20 95 Room Air 06/06/20 08:00 98.5 86 117/56 (76) 2.0 I&O- Last 24 Hours up to 6 AM 06/06/20 06:00 Intake Total 3880 ml Output Total 905 ml Balance 2975 ml BETSY VERGARA MD Jun 06, 2020 09:55
[2020-06-06] MEDS ORDERED: ALTEPLASE 2MG/2ML VIAL XX ONE (11:00)
--- NOTE | 2020-06-06 11:55 | IPN ---
PROGRESS NOTE DATE: 06/05/2020 This is the first hospital day for Mrs. Dong. Her pain is being well controlled at the chest tube insertion site. She is breathing well and not complaining of shortness of breath. She has only drained 30 mL in the last 12 hours from her chest tube. Her vital signs show a maximum temperature of 97.9 with a heart rate that ranges between 80-87 in a sinus rhythm, respiratory rate of 18-20 without the use of accessory muscles, who is 93%-96% saturated on 2 liters nasal cannula and has blood pressures ranging between 105/59 to 114/66. PHYSICAL EXAMINATION: Her lungs still show decreased breath sounds on the left side with a dull percussion note. Breath sounds are diminished, and she still has E-to-A egophony. Right side shows normal vesicular sounds. Cardiac exam still shows the murmur that she had yesterday, but it is much less pronounced. Yesterday is was quite loud. Today it is soft in the right upper sternal border. S1 and S2 are normal. I cannot feel her point of maximal impulse (PMI). Abdomen is soft, nontender. Bowel sounds are positive. I do not appreciate hepatomegaly. I cannot detect a fluid wave. Extremities show no pretibial edema. No calf tenderness. Extremities show no pretibial edema, no calf tenderness, no differential swelling of the upper extremities. Skin is warm, dry, and perfused without cyanosis or mottling, including that of the nailbeds and knee. Neck is supple. There is no jugular venous distention. No subcutaneous emphysema. Trachea is midline. Mouth shows the mucous membranes to be pink and moist. Lips and commissures without lesions. No thrush. Eyes show her pupils to be equal and reactive. Extraocular muscles intact, but she is still icteric. Neurologic shows II-XII intact. Normal gross motor, gross sensation intact. Gait is not tested. Psychiatric shows her to awake, alert, and oriented times three with appropriate mood and affect and conversational. Her white count today is 6.4 with a hemoglobin and hematocrit of 9.9 and 30.3, respectively, down from 11.0 and 33.6 yesterday. Platelet count is 124 and stable. Differential shows 61% neutrophils, 12% lymphocytes, 18% monocytes. No immature forms or toxic granulations. The computer has now gone down. I cannot directly remember all the chemistries involved. I will amend the dictation tomorrow. It is beyond the capabilities of the IT department to maintain this system consistently and dependently. IMPRESSION: To the best of my memory: 1. Pleural effusion. 2. Cirrhosis. 3. Ascites. PLAN AND DISCUSSION: Her chest x-ray, to the best of my memory, from this morning shows an air-fluid level with still consolidation of the left lower hemithorax. I will therefore obtain a CT scan. She may need a tPA pleurolysis. Any other major decisions to be made or to be acted upon will have to await the computer system being brought back up.
[2020-06-06 12:00] VITALS: BP 116/60
[2020-06-06] MEDS: SENOKOT S TAB PO SCH ×2 (12:00→20:38)
[2020-06-06] MEDS ORDERED: FUROSEMIDE 40MG/4ML VIAL (J1940) IV ONE (13:00)
[2020-06-06] MEDS: PERCOCET 5MG/325MG TAB PO PRN ×2 (15:02→18:25)
[2020-06-06 16:00] VITALS: BP 115/57
--- NOTE | 2020-06-06 18:51 | IPN ---
PROGRESS NOTE DATE: 06/06/2020 SUBJECTIVE: Mrs. Dong is again doing fairly well. She does have increased peripheral edema, however. She is less icteric today. OBJECTIVE: VITAL SIGNS: Show a T-max of 99.2 with a heart rate that ranges between 83 and 90 in a sinus rhythm. Respiratory rate of 16 to 20 without use of accessory muscle. She is 91% to 95% saturated on 2 liters nasal canal. Blood pressure ranging between 117/56 to 107/56. INTAKE AND OUTPUT: For the past 24 hours is recorded as 3530 in and 650 out for a positivity of 2880 mL. She has taken in 3100 mL in p.o. intake. She has put 250 mL from the chest tube. There is no air leak. Her weight today is 99.8 kg compared to 97.1 kg yesterday. LUNGS: She still has decreased breath sounds on the left side with a dull percussion note at the very base. I hear some scattered rhonchi on the right, which clear with coughing. CARDIAC: Shows a faint systolic ejection murmur heard best at the right upper sternal border. It is much less than when she first presented. I cannot feel her PMI. S1, S2 are normal. ABDOMEN: Soft and nontender. Bowel sounds positive. There is no hepatomegaly. No CVA tenderness. I cannot detect a fluid wave because of her obesity. EXTREMITIES: Shows 2 to 3+ pretibial edema. No calf tenderness. No differential swelling of the upper extremities. SKIN: Warm, dry, and perfuse without cyanosis or mottling including that of the nail beds and knees. NECK: Supple. There is no jugular venous distention (JVD). No subcutaneous emphysema. Trachea is midline. MOUTH: Shows her mucous membranes to be pink and moist. Lips and gums with no lesions. There is no thrush. EYES: Show her pupils to be equal and reactive. Extraocular movements intact. Sclerae much less icteric. NEUROLOGIC: Shows 2 through 12 intact. Normal gross motor. Normal gross sensation. Gait is not tested. PSYCHIATRIC: Shows her to be awake, alert, and oriented x3 with appropriate mood and affect and conversational. DIAGNOSTIC STUDIES: Her white count today is 7.2 with a hemoglobin and hematocrit of 9.1 and 29.0 down from 11.0 and 33.6 two days ago. Platelet count is 120 and stable. Differential shows 60% neutrophils, 18% lymphocytes, and 15% monocytes. There are no immature forms or toxic granulations. Her electrolytes are normal with a BUN and creatinine of 21 and 1.05. Calcium 7.0 and corresponding albumin that has decreased even more to 1.3. AST and ALT are 77 and 37 respectively. Her pleural fluid returned with a pH of 7.3. Cell count could not be obtained because of clotting. Glucose was 57 with an LDH of 488 with a corresponding serum LDH of 198 making exudative. Her fluid total protein is 4.4 with her serum total protein 6.4 also making this exudative. Microbiology did not show any organisms. Cultures are pending. Pathology is pending. Her chest x-ray today shows multiple air fluid levels. There is some additional lung opening up inferiorly, however. I still see an airspace in the costophrenic angle. I did obtain a CT scan of her yesterday, which shows still multiple loculations. There is a larger loculation superiorly, which does not look to be in communication with the inferior effusion. Her lung may very well be entrapped. Chest tube is in excellent position inferiorly. The lung is severely compressed and there are air bronchograms, which could indicate a persistent infiltrative pneumonia in the lower lobe. Her liver still has ascites and she has a lumpy, bumpy, cirrhotic looking liver, which is on the small side. There looks to be splenomegaly, however. IMPRESSION: 1. Liver cirrhosis, ascites. 2. Pleural effusion, possible exudative, possible parapneumonic. 3. Compression of the left lung and possible now lung entrapment. 4. Jaundice secondary to cirrhosis, improving. 5. Status post hepatitis C probably the cause of her cirrhosis. PLAN AND DISCUSSION: I will do tPA pleurolysis on her today. She is continuing on Zosyn. She has been placed on Spironolactone for her cirrhosis. This is a relatively small dose and I will add Lasix.
--- NOTE | 2020-06-06 18:57 | RO ---
OPERATIVE NOTE DATE OF OPERATION: 06/06/2020 PREPROCEDURE DIAGNOSES: 1. Entrapped lung. 2. Loculated pleural effusion. POSTPROCEDURE DIAGNOSES: 1. Entrapped lung. 2. Loculated pleural effusion. SURGEON: Rangel Multani M.D. PROCEDURE: TPA pleurolysis. DESCRIPTION OF PROCEDURE: The patient's chest tube was disconnected from the Pleur-Evac and clamped. The tube was prepped in the usual fashion with Betadine and 6 mg of tPA and 100 mL of normal saline was instilled into the chest. This was followed by a small bolus of air to clear the chest tube. The tube was reclamped and connected back to the Pleur-Evac. The patient was then turned from side to side in order to distribute the tPA and then placed in deep Trendelenburg for 15 minutes to get the tPA up superiorly. The patient tolerated the procedure well and the tube is being unclamped in four hours.
[2020-06-06 20:00] VITALS: BP 103/57
[2020-06-07] VITALS (11 sets, daily range): BP systolic 90–133; BP diastolic 48–68
[2020-06-07] MEDS: LEVALBUTEROL 1.25 MG/0.5 ML CONCENTRATE NEB NEB SCH ×4 (02:00→20:00)
[2020-06-07] MEDS: PIPERACILLIN/TAZOBACTAM SOD 3.375 GM in D5W MINI-BAG PLUS 50 ML IV SCH ×4 (02:47→20:21)
[2020-06-07] MEDS: PERCOCET 5MG/325MG TAB PO PRN ×2 (02:49→20:21)
[2020-06-07 05:55] LABS: BASO % 0.3 % (0.0-1.0); EOS # 0.4 10^3/uL (0.0-0.5); EOS % 5.8 % (0.0-3.0); HEMOGLOBIN 9.7 g/dl (12.0-15.5); LYMPH # 1.5 10^3/uL (1.5-5.0); LYMPH % 20.9 % (24.0-44.0); MEAN CORPUSCULAR HGB CONC 32.3 g/dl (32.0-36.5); MONO # 1.1 10^3/uL (0.0-0.8); MONO % 15.2 % (0.0-5.0); NEUTROPHILS # 4.2 10^3/uL (1.5-8.5); NEUTROPHILS % 57.4 % (36.0-66.0); PLATELET COUNT, AUTOMATED 111 10^3/uL (150-450); RED BLOOD COUNT 2.94 10^6/uL (4.00-5.40); WHITE BLOOD COUNT 7.4 10^3/uL (4.0-10.0)
[2020-06-07 06:21] LABS: ALBUMIN 1.2 GM/DL (3.2-5.2); BILIRUBIN,TOTAL 2.2 MG/DL (0.2-1.0); CALCIUM LEVEL 7.2 MG/DL (8.5-10.1); CREATININE FOR GFR 1.14 MG/DL (0.55-1.30); GLOMERULAR FILTRATION RATE 55.6 (>58); PHOSPHORUS LEVEL 4.4 MG/DL (2.5-4.9); POTASSIUM SERUM 3.9 MEQ/L (3.5-5.1); TOTAL PROTEIN 5.5 GM/DL (6.4-8.2)
[2020-06-07] MEDS: KETOROLAC 30 MG/ML 1ML VIAL IV SCH ×3 (07:17→17:02)
--- NOTE | 2020-06-07 08:37 | REP ---
INDICATION: pleural effusion COMPARISON: 06/06/2020 TECHNIQUE: PA and lateral. FINDINGS: Pleural catheter at the left base is in stable position. Left hydropneumothorax is improved/decreased. Underlying left lower lobe atelectasis and parenchymal opacities are improved. Right hemithorax is clear. Visualized portions of the mediastinum and cardiac silhouette are normal. Skeletal structures are intact. IMPRESSION: 1. Left hydropneumothorax appears improved and decreased. 2. No new acute process appreciated. <Electronically signed by Jason Johnson > 06/07/20 0874
[2020-06-07] MEDS: PANTOPRAZOLE 40MG TAB (PROTONIX) PO SCH (08:45)
[2020-06-07] MEDS: SENOKOT S TAB PO SCH ×2 (08:45→20:30)
[2020-06-07] MEDS: SPIRONOLACTONE 25 MG TAB PO SCH (08:45)
[2020-06-07] MEDS: MOM 30ML SUSPENSION UDC PO SCH (08:45)
[2020-06-07] MEDS: FUROSEMIDE 20 MG TAB PO SCH (08:46)
[2020-06-07] MEDS: HEPARIN SOD (PORCINE) 5000UNITS/ML 1ML VIAL/SYRINGE SC SCH ×2 (08:46→20:22)
[2020-06-07] MEDS ORDERED: FUROSEMIDE 40MG/4ML VIAL (J1940) IV ONE (09:00)
--- NOTE | 2020-06-07 09:04 | ECHO ---
DATE OF PROCEDURE: 06/04/2020 Age: 44 Gender: Female Height: 65 inches Weight: 205 pounds Body surface area: 2.0 m2 PATIENT LOCATION: Inpatient PCU, Room 3230. REFERRING PHYSICIAN: Rangel Multani M.D. INDICATION: Murmur. MEASUREMENTS: 2D Measurements: RV 3.8 cm LV 4.6 cm Septum 1.1 cm Posterior wall 1.1 cm Aortic Root 3.1 cm LA 3.6 cm LVEF 75% Doppler Measurements: AV 1.54 m/s LVOT 1.02 m/s LVOT diameter 2.1 cm MV-E 89, A 75, E/A ratio 1.2 Early mitral deceleration time 158 msec E prime medial 9.1, A prime medial 10, E prime lateral 8.1 Average E/E prime ratio 10/PCWP 14.7 mmHg PV 0.9 m/s Pulmonary artery acceleration time 118 msec RVSP 30 mmHg IVC 1.4 cm COMMENTS: Normal sinus rhythm without intraventricular conduction disturbance. M-mode and two-dimensional echocardiography was performed with pulse, continuous wave, color flow, and tissue Doppler studies. Normal left ventricular size, wall thickness, and hyperkinetic wall motion. Normal left atrial size and Doppler assessment of LV diastolic function and estimated mean left atrial pressure. Normal right heart chamber sizes and motion with pulmonary arterial pressure upper limits of normal to borderline increased. Normal IVC size and collapse against an elevated central venous pressure. Normal aortic dimensions. Normal appearing and functioning aortic valve. Normal appearing and functioning mitral valve. Normal appearing and functioning tricuspid valve with very mild insufficiency (physiologic). No apparent intracardiac mass. 2-4 mm circumferential pericardial effusion without evidence of cardiac chamber compression or respiratory variation in Doppler flow signals to suggest cardiac tamponade. MTDD
--- NOTE | 2020-06-07 09:32 | REP ---
INDICATION: status of pleural effusion after tpa COMPARISON: None TECHNIQUE: Axial noncontrast images from the thoracic inlet to the upper abdomen with coronal and sagittal reformations. This CT examination was performed using the following dose reduction techniques: Automated exposure control, adjustment of mA and/or kv according to the patient's size, and use of iterative reconstruction technique. FINDINGS: Chest tube at the left base is again noted with small residual hydropneumothorax and suspected chronic pleural thickening as well as mild lower lobe and lingular atelectasis. Right hemithorax is clear. Mediastinum including thoracic aorta, pulmonary vasculature and heart/pericardium are grossly normal. No significant adenopathy noted. Surrounding musculoskeletal structures are intact. Limited upper abdomen demonstrates cirrhosis with portal hypertension, splenomegaly, varices, and ascites. IMPRESSION: 1. Near complete resolution to the left pleural effusion with small residual hydropneumothorax as well as possible chronic pleural thickening and mild passive atelectasis. 2. Limited upper abdomen consistent with cirrhosis and portal hypertension including ascites. <Electronically signed by Jason Johnson > 06/07/20 0983
--- NOTE | 2020-06-07 12:31 | IPNPDOC ---
Text Note Date of Service The patient was seen on 06/07/20. NOTE SUBJECTIVE: Severe leg swelling, left worse than right . Unable to bend the leg. Abdominal distension. Chest tube remains in place, had tpa placed yesterday. CXR and CT chest noted. Near complete resolution of the pleural effusion. VITAL SIGNS: Please see below. GEN: well-nourished / well developed/ slightly anxious HEENT: lips acyanotic /mucus membranes moist and pink / sclera icteric/ + abdominojugular reflux CVS: RRR/NMRG/ radial pulses intact / +2 BLE extremity edema , more prominent at the left LUNGS: diminished breath sounds on the left with basal crackles. ABDOMEN: Mildly distended, soft, nontender, normal bowel sounds, ascites present. Extremities ; Bilateral pedal edema MSK/EXTREMITIES: NCAT / range of motion intact in all 4 extremities NEURO: CN 2-12 are grossly intact / speech is not dysarthric PSYCH: alert and oriented to person place and time/ able to understand and follow all commands Labs and Radiology: reviewed ASSESSMENT and plan: Ms. Dong is a 44-year-old female with a history of liver cirrhosis likely secondary to hepatitis C who presented with complaints of persistent cough, and acute onset of abdominal swelling and bilateral lower extremity swelling after completing a course of doxycycline. She was found to have decompensated liver cirrhosis and left sided pleural effusion. Left Pleural effusion with hydropneumothorax resolved. Fluid Cultures negative. Cytology and pathology negative for malignancy lots of inflammatory cells. CT chest on 06/05 with left lower lobe and lingular opacities. CT chest on 06/07/20: Near complete resolution to the left pleural effusion with small residual hydropneumothorax as well as possible chronic pleural thickening and mild passive atelectasis. Limited upper abdomen consistent with cirrhosis and portal hypertension including ascites. management as per Dr Multani. Entrapped left lung. Dr Multani thinks the pleural effusion was long standing and caused inflammatory changes and entrapment of the lung. suction increased to see it that will expand the lung. Left lower lobe pneumonia continue zosyn. Decompensated liver cirrhosis with thrombocytopenia, portal hypertension, ascites due to untreated Hepatitis C. 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 MELD Score today = 14 points will refer to GI and ID on discharge. albumin and iv lasix to help with diuresis. Will increase aldactone. Cholestatic Jaundice due to cirrhosis of liver with congestion. improving. Lactic acidosis probably due to cirrhosis of liver and infection now resolved. DVT PROPHYLAXIS: SCDs VS,Fishbone, I+O VS, Fishbone, I+O Laboratory Tests 06/07/20 05:36 Vital Signs Date Time Temp Pulse Resp B/P (MAP) Pulse Ox O2 Delivery O2 Flow Rate FiO2 06/07/20 12:00 98.0 89 20 116/57 (76) 93 Room Air 06/07/20 04:00 2.0 I&O- Last 24 Hours up to 6 AM 06/07/20 06:00 Intake Total 1020 ml Output Total 2113 ml Balance -1093 ml BETSY VERGARA MD Jun 07, 2020 12:31
[2020-06-07] MEDS ORDERED: SPIRONOLACTONE 25 MG TAB PO ONE (13:00)
--- NOTE | 2020-06-07 13:48 | IPN ---
PROGRESS NOTE DATE: 06/07/2020 SUBJECTIVE: Ms. Dong underwent a tPA pleurolysis yesterday with good results. She is breathing well, although she is still quite edematous. OBJECTIVE: VITAL SIGNS: Show a T-max of 99.0 with a heart rate that ranges between 93 and 96 sinus rhythm. Respiratory rate is constant at 20 who is 93% to 96% saturated on 2 liters nasal cannula. Blood pressure ranging between 133/68 to 103/57. INTAKE AND OUTPUT: Over the past 24 hours is recorded as 670 in and 1888 out for a negativity of 218 mL. She has put out 638 mL in chest tube output and 1240 mL in urine. She weighs 91.7 kg compared to 99.8 kg yesterday. I am not convinced that weight today is accurate. RESPIRATORY: She still has decreased breath sounds on the left side with some E:A egophony at the left base. Percussion note is full to the diaphragm as far as I can tell through her obesity. Right side shows normal vesicular sounds without wheezes, rhonchi, or rales. Percussion note was fully to the diaphragm on the right. CARDIAC: Shows a very faint now 2/6 murmur at the right upper sternal border. I cannot feel her PMI. S1, S2 are normal. ABDOMEN: Soft and nontender. Bowel sounds are positive. I cannot detect hepatomegaly. There is no CVA tenderness. EXTREMITIES: Still show 2 to 3+ pretibial edema. No calf tenderness. No differential swelling of the upper extremities. SKIN: Warm, dry, and perfused without cyanosis or mottling, including that of the nail beds and knees. NECK: Supple. There is no jugular venous distention. No subcutaneous emphysema. Trachea is midline. MOUTH: Shows the mucous membranes to be pink and moist. Lips and gums without lesions and no thrush. EYES: Show her pupils equal and reactive. Extraocular movements are intact. Sclerae much less icteric. NEUROLOGIC: Shows II through XII intact. Normal gross motor, gross sensation intact. Gait is not tested. PSYCHIATRIC: Shows her to be awake, alert, and oriented x3 with appropriate mood and affect and conversational. LABORATORY DATA: Her white count is 7.4 with hemoglobin and hematocrit of 9.7 and 38.0 respectively essentially unchanged from yesterday with a platelet count of 111,000 and stable. Differential shows 57% neutrophils, 20% lymphocytes, and 15% monocytes. There are no immature forms or toxic granulations. Her chemistries show normal electrolytes with potassium of 3.9. BUN and creatinine are 27 and 1.14 respectively with a glucose of 83. Calcium is 7.2 with a corresponding albumin of 1.2, which continues to decrease. AST and ALT are 75 and 36 respectively. Total bilirubin is 2.2 unchanged from yesterday. I discussed her pleural fluid yesterday being exudative. It was clotted so we could not undertake a cell count. It was also normal glycemic. Pathology: Reported back inflammatory cells without malignant cells on the cell block. Likewise, cytology is negative for malignancy. Her chest x-ray today still shows her lung to be entrapped, but the air fluid level is now gone. The left upper lobe collection is also gone. Chest tube looks to be in good place. IMPRESSION: 1. Liver cirrhosis. 2. Ascites. 3. Pleural effusion exudative. 4. Left lower lobe compression and lung entrapment. 5. Jaundice secondary to the cirrhosis, improving. 6. Status post hepatitis C probably the cause of her cirrhosis. 7. Hypoalbuminemia. PLAN AND DISCUSSION: I will obtain another CT scan of her today to see the status of her entrapped lung. I am also turning her suction up to 40 cm of water to see if we can get the lung back up. I have a sinking feeling, however, that it is entrapped with inflammatory tissue and that her pleural effusion is really quite longstanding. She needs more diuresis and I would suggest the consideration for albumin infusion.
[2020-06-07] MEDS ORDERED: FUROSEMIDE 40MG/4ML VIAL (J1940) IV SCH (17:00)
[2020-06-08] VITALS (11 sets, daily range): BP systolic 96–134; BP diastolic 54–79
[2020-06-08] MEDS: KETOROLAC 30 MG/ML 1ML VIAL IV SCH ×5 (00:49→22:24)
[2020-06-08] MEDS: PIPERACILLIN/TAZOBACTAM SOD 3.375 GM in D5W MINI-BAG PLUS 50 ML IV SCH ×4 (01:36→20:54)
[2020-06-08] MEDS: LEVALBUTEROL 1.25 MG/0.5 ML CONCENTRATE NEB NEB SCH ×3 (02:00→13:13)
[2020-06-08 04:58] LABS: BASO % 0.5 % (0.0-1.0); EOS # 0.4 10^3/uL (0.0-0.5); EOS % 6.4 % (0.0-3.0); HEMATOCRIT 27.6 % (36.0-47.0); LYMPH # 1.7 10^3/uL (1.5-5.0); LYMPH % 29.9 % (24.0-44.0); MEAN CORPUSCULAR HGB CONC 32.6 g/dl (32.0-36.5); MEAN CORPUSCULAR VOLUME 101.1 fl (80.0-96.0); MONO # 0.8 10^3/uL (0.0-0.8); MONO % 12.9 % (0.0-5.0); NEUTROPHILS # 2.9 10^3/uL (1.5-8.5); PLATELET COUNT, AUTOMATED 119 10^3/uL (150-450); RED BLOOD COUNT 2.73 10^6/uL (4.00-5.40); WHITE BLOOD COUNT 5.8 10^3/uL (4.0-10.0)
[2020-06-08 05:22] LABS: ALBUMIN 1.5 GM/DL (3.2-5.2); BILIRUBIN,TOTAL 2.1 MG/DL (0.2-1.0); CALCIUM LEVEL 7.4 MG/DL (8.5-10.1); CREATININE FOR GFR 1.18 MG/DL (0.55-1.30); GLOMERULAR FILTRATION RATE 53.5 (>58); PHOSPHORUS LEVEL 4.4 MG/DL (2.5-4.9); POTASSIUM SERUM 3.9 MEQ/L (3.5-5.1); TOTAL PROTEIN 5.3 GM/DL (6.4-8.2)
--- NOTE | 2020-06-08 08:01 | REP ---
INDICATION: pleural effusion COMPARISON: 06/07/2020 TECHNIQUE: PA and lateral. FINDINGS: Left-sided chest tube in stable position. Increased left pleural effusion and associated pleuroparenchymal changes are noted on current examination. Remainder of the aerated lung palomino are clear. Visualized portions of the mediastinum and cardiac silhouette are stable/normal. IMPRESSION: Increased opacity in the left lower lobe consistent with increasing pleural effusion and underlying pleuroparenchymal changes. <Electronically signed by Jason Johnson > 06/08/20 0751
[2020-06-08] MEDS: MOM 30ML SUSPENSION UDC PO SCH (08:37)
[2020-06-08] MEDS: SENOKOT S TAB PO SCH (08:37)
[2020-06-08] MEDS: SPIRONOLACTONE 50 MG TAB PO SCH (08:45)
[2020-06-08] MEDS: PANTOPRAZOLE 40MG TAB (PROTONIX) PO SCH (08:45)
[2020-06-08] MEDS: HEPARIN SOD (PORCINE) 5000UNITS/ML 1ML VIAL/SYRINGE SC SCH ×2 (08:46→20:54)
[2020-06-08] MEDS: FUROSEMIDE 40MG/4ML VIAL (J1940) IV SCH ×3 (08:46→20:54)
--- NOTE | 2020-06-08 12:30 | IPNPDOC ---
Text Note Date of Service The patient was seen on 06/08/20. NOTE SUBJECTIVE: Severe leg swelling, left worse than right . Unable to bend the leg. Abdominal distension. Chest tube remains in place. CXR worse again this morning. Left pleural effusion is back again. Increased lasix. continued albumin. PHYSICAL EXAM: VITAL SIGNS: Please see below. GEN: well-nourished / well developed/ slightly anxious HEENT: lips acyanotic /mucus membranes moist and pink / sclera icteric/ + abdominojugular reflux CVS: RRR/NMRG/ radial pulses intact / +2 BLE extremity edema , more prominent at the left LUNGS: diminished breath sounds on the left with basal crackles. ABDOMEN: Mildly distended, soft, nontender, normal bowel sounds, ascites presen t. Extremities ; Bilateral pedal edema MSK/EXTREMITIES: NCAT / range of motion intact in all 4 extremities NEURO: CN 2-12 are grossly intact / speech is not dysarthric PSYCH: alert and oriented to person place and time/ able to understand and follow all commands Labs and Radiology: reviewed ASSESSMENT and plan: Ms. Dong is a 44-year-old female with a history of liver cirrhosis likely secondary to hepatitis C who presented with complaints of persistent cough, and acute onset of abdominal swelling and bilateral lower extremity swelling after completing a course of doxycycline. She was found to have decompensated liver cirrhosis and left sided pleural effusion. Left Pleural effusion Had resolved on 06/07/20 CT chest but is back again Has underlying entrapped lung. Fluid Cultures negative. Cytology and pathology negative for malignancy lots of inflammatory cells. CT chest on 06/05 with left lower lobe and lingular opacities. CT chest on 06/07/20: Near complete resolution to the left pleural effusion with small residual hydropneumothorax as well as possible chronic pleural thickening and mild passive atelectasis. Limited upper abdomen consistent with cirrhosis and portal h ypertension including ascites. management as per Dr Multani. Entrapped left lung. Dr Multani thinks the pleural effusion was long standing and caused inflammatory changes and entrapment of the lung. suction increased to see it that will expand the lung. Left lower lobe pneumonia continue zosyn. Decompensated liver cirrhosis with thrombocytopenia, portal hypertension, ascites due to untreated Hepatitis C. 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 MELD Score today = 14 points will refer to GI and ID on discharge. albumin and iv lasix to help with diuresis. Will increase aldactone. Cholestatic Jaundice due to cirrhosis of liver with congestion. improving. Lactic acidosis probably due to cirrhosis of liver and infection now resolved. DVT PROPHYLAXIS: SCDs VS,Fishbone, I+O VS, Fishbone, I+O Laboratory Tests 06/08/20 04:45 Vital Signs Date Time Temp Pulse Resp B/P (MAP) Pulse Ox O2 Delivery O2 Flow Rate FiO2 06/08/20 09:22 97.6 85 18 114/54 (74) 95 Room Air 06/07/20 04:00 2.0 I&O- Last 24 Hours up to 6 AM 06/08/20 06:00 Intake Total 890.0 ml Output Total 685 ml Balance 205.0 ml BETSY VERGARA MD Jun 08, 2020 12:30
--- NOTE | 2020-06-08 14:01 | IPN ---
PROGRESS NOTE DATE: 06/08/2020 Ms. Dong is sitting up comfortably, although she is complaining of increased swelling of her lower extremities, including her thighs. She is breathing well, however. She does say she feels better than she has been. She still put out way too much from the chest tube to remove it. Her vital signs show a maximum temperature of 98.0 with a heart rate that ranges between 88-85 in a sinus rhythm, respiratory rate that is constant at 18, who is 93%-96% saturated on room air, and his blood pressure is ranging between 127/60 to 96/54. Her intake and output for the past 24 hours has been recorded as only 640 in and 810 out for a negativity of 170 mL. She has taken 440 mL in oral intake. Urine output is 400 with a chest tube output of 410. She weighs 97.6 kg today compared to 97.1 kg on June 05. PHYSICAL EXAMINATION: She has mildly decreased breath sounds on left side, particularly at the base. Her percussion notes, however, are full to the diaphragm. Right lung shows normal vesicular sounds without wheezes, rhonchi, or rales. Cardiac exam shows the 2/6 systolic ejection murmur at the right upper sternal border and now left lower sternal border. I cannot feel her point of maximal impulse (PMI). S1 and S2 are normal. Abdomen is soft, nontender but feels full. I cannot tell whether this is because she is sitting up or not. There is no hepatomegaly. No costovertebral angle (CVA) tenderness. Extremities show 3-4+ pretibial edema with thigh swelling additionally. There is no differential swelling of the upper extremities. Her skin is warm, dry, and perfused without cyanosis or mottling, including that of the nailbeds and knees. Neck is supple. There is no jugular venous distention. No subcutaneous emphysema. Trachea is midline. Mouth shows her mucous membranes to be pink and moist. Lips and commissures without lesion. No thrush. Eyes show her pupils to be equal and reactive. Extraocular muscles intact. Sclerae anicteric. Neurologic shows II-XII intact. Normal gross motor, gross sensation intact. Gait is not tested. Psychiatric shows her to awake, alert, and oriented times three with appropriate mood and affect and conversational. Her white count today is 5.8 with a hemoglobin and hematocrit of 9.0 and 27.6, respectively. Platelet count is 119 and stable. Differential shows 50% neutrophils, 29% lymphocytes, 12% monocytes. There are no immature forms or toxic granulations. Chemistries today show normal electrolytes with a BUN and creatinine of 29 and 1.18 with a glucose of 83. Calcium is 7.4 with an albumin of 1.5, which is up from 1.2 yesterday. She has received three 50 mL units of 25% albumin. Her AST and ALT are 72 and 33, respectively, with a total bilirubin of 2.1. Her chest x-ray today shows filling of the residual airspace in the left lower hemithorax, filling the costophrenic angle. On the surface it looks as though it is worse; however, what we are seeing is the filled costophrenic angle airspace on top of the atelectatic underlying lung and/or rind on the pleural surface. IMPRESSION: 1. Liver cirrhosis. 2. Ascites. 3. Status post hepatitis C, causing the above. 4. Pleural effusion, exudative. 5. Left lower lobe compression and lung entrapment. 6. Jaundice secondary to cirrhosis. 7. Hypoalbuminemia. PLAN AND DISCUSSION: I have noted that her hepatitis C was not completely treated, as she did not complete treatment for it. Furthermore, her liver function and cirrhosis is at the point where she should be considered for a liver transplant, and those arrangements should be made. I have spoken with Dr. Ruiz of the hospitalist service, and Dr. Milligan of infectious disease will need to be involved to complete her treatment of hepatitis C, and she should be referred to gastroenterology for her hepatic workup and arrangement for outpatient consideration for liver transplant. I do not see this cirrhosis getting better, and now is the time to consider transplantation. So far as her pleural effusion is concerned, I am hoping that increased medical therapy, including diuresis and albumin infusions will decrease the volume of her effusion. The space, though, is always going to fill with fluid. The idea is to control her ascites and liver failure so that the remainder of the pleural cavity does not also fill with fluid. She may need a PleurX catheter. Her lung is not so entrapped as to require a decortication.
[2020-06-09] VITALS (13 sets, daily range): BP systolic 100–130; BP diastolic 53–72
[2020-06-09] MEDS: PIPERACILLIN/TAZOBACTAM SOD 3.375 GM in D5W MINI-BAG PLUS 50 ML IV SCH ×4 (02:57→22:02)
[2020-06-09] MEDS: FUROSEMIDE 40MG/4ML VIAL (J1940) IV SCH ×4 (02:57→22:02)
[2020-06-09] MEDS: PERCOCET 5MG/325MG TAB PO PRN ×2 (03:09→15:19)
[2020-06-09] MEDS: KETOROLAC 30 MG/ML 1ML VIAL IV SCH ×4 (04:35→23:47)
[2020-06-09 05:53] LABS: BASO % 0.4 % (0.0-1.0); EOS # 0.3 10^3/uL (0.0-0.5); EOS % 6.2 % (0.0-3.0); HEMATOCRIT 26.2 % (36.0-47.0); HEMOGLOBIN 8.4 g/dl (12.0-15.5); LYMPH # 1.5 10^3/uL (1.5-5.0); LYMPH % 28.3 % (24.0-44.0); MEAN CORPUSCULAR HEMOGLOBIN 31.9 pg (27.0-33.0); MEAN CORPUSCULAR HGB CONC 32.1 g/dl (32.0-36.5); MEAN CORPUSCULAR VOLUME 99.6 fl (80.0-96.0); MONO # 0.8 10^3/uL (0.0-0.8); MONO % 15.5 % (0.0-5.0); NEUTROPHILS # 2.5 10^3/uL (1.5-8.5); PLATELET COUNT, AUTOMATED 112 10^3/uL (150-450); RED BLOOD COUNT 2.63 10^6/uL (4.00-5.40); WHITE BLOOD COUNT 5.2 10^3/uL (4.0-10.0)
[2020-06-09 06:14] LABS: ALBUMIN 1.9 GM/DL (3.2-5.2); ALT/SGPT 34 U/L (12-78); BILIRUBIN,TOTAL 2.1 MG/DL (0.2-1.0); BLOOD UREA NITROGEN 27 MG/DL (7-18); CALCIUM LEVEL 7.7 MG/DL (8.5-10.1); CARBON DIOXIDE LEVEL 29 MEQ/L (21-32); CHLORIDE LEVEL 105 MEQ/L (98-107); CHOLESTEROL LEVEL 70 MG/DL (< 200); CPK CREATINE PHOSPHOKINASE 37 U/L (26-192); CREATININE FOR GFR 1.01 MG/DL (0.55-1.30); GLOMERULAR FILTRATION RATE > 60.0 (>58); GLUCOSE, FASTING 89 MG/DL (70-100); LDH LACTATE DEHYDROGENASE 171 U/L (84-246); PHOSPHORUS LEVEL 4.3 MG/DL (2.5-4.9); POTASSIUM SERUM 3.6 MEQ/L (3.5-5.1); SODIUM LEVEL 141 MEQ/L (136-145); TOTAL PROTEIN 5.5 GM/DL (6.4-8.2); TRIGLYCERIDES LEVEL 73 MG/DL (<150)
--- NOTE | 2020-06-09 08:19 | REP ---
INDICATION: pleural effusion COMPARISON: 06/08/2020 TECHNIQUE: PA and lateral. FINDINGS: Left-sided chest tube and moderate left hydropneumothorax with underlying parenchymal disease essentially unchanged. Right hemithorax is relatively clear. IMPRESSION: No significant change from prior examination. <Electronically signed by Jason Johnson > 06/09/20 0815
--- NOTE | 2020-06-09 09:04 | CR ---
CONSULTATION DATE: 2019 REASON FOR CONSULTATION: I was asked to consult by Dr. Ruiz and Dr. Multani for evaluation of chronic hepatitis C with liver cirrhosis. HISTORY OF PRESENT ILLNESS: Chantel is a pleasant, 44-year-old female who had been seen by me in 2010 for treatment of hepatitis C. At that time, the patient was offered treatment with interferon, ribavirin and protease inhibitors. The patient did not tolerate the medication that she took for a couple months and missed too much work and was fired from her job. After that, she never followed up again in spite for referral in 2019. She had a no show. The patient was admitted to [facility] with a large left-sided pleural effusion, shortness of breath, abdominal swelling and lower extremity edema. She started feeling ill around Thanks with cough and shortness of breath and fluid retention. She progressively got worse and was admitted on June 03, had a chest tube in place by Dr. Multani. 800 mL of serosanguineous fluid was drained. It was not consistent with an empyema but an exudate. The patient was treated with IV Zosyn and is feeling better. She is currently day #5. She denies any fever or chills, no nausea, vomiting or diarrhea. She is concerned about her significant bloating and edema. She is worried about dying from liver cirrhosis. She states that she still had alcohol up until two months ago where she drank alcohol with lemonade every night until two months ago. PAST MEDICAL HISTORY: 1. Chronic hepatitis C untreated since 2010 with now liver cirrhosis. 2. Hyperbilirubinemia. 3. Thrombocytopenia. 4. History of anxiety disorder. SOCIAL HISTORY: She is a former smoker. She does not smoke anymore. She drank up until two months ago, a couple beverages at night after she came back from work. 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 FAMILY HISTORY: Sister has diabetes. Many cousins and maternal aunts and mother had breast cancer. Her mother has recovered from breast cancer and has moved to live with her. She has a 13-year-old son who is at home and a 24-year-old and 21-year-old daughter that are on their own. One is living in [place] and has three kids. She recently was in [place] in December of 2019 to visit her family. IMAGING STUDIES: CT of chest had a large left pleural effusion with low enhancement, concerning for empyema, air space consolidation involving loss in the left lung. There is a 3.5 mm right lower lobe nodule, low risk. CT of abdomen shows cirrhosis of the liver with a moderate volume of ascites, gastroesophageal and mesenteric varices and splenomegaly. Distended gallbladder concerning for acute cholecystitis, left pleural effusion, basilar air space consolidation. Lower extremity duplex study showed no evidence of DVT. LABS: White count 5.8, on admission was 15.2. Hemoglobin 9, hematocrit 27.6, platelets 119, 50% neutrophils, 29% lymphocytes and monocytes. Sodium 140, potassium 3.9, chloride 105, bicarb 28, BUN 29, creatinine 1.18, glucose r83, calcium 7.4, phosphorus 4.4, total bilirubin 2.1 down from 6.5 on admission. AST 72, ALT 33, alk phos 88, LDH 167, CPK 31, albumin 1.5. Urinalysis: few white cells, one red cell. SARS-CoV-2 negative. Influenza A, B, RSV negative. MRSA screen not detected. Pleural fluid had a pH of 7.38, glucose 57, total protein 4.4, albumin 1.2, LDH 488. Amylase 27, cholesterol less than 50. Blood cultures, two sets were no growth after 72 hours. Pleural fluid: No growth. Aerobic and anaerobic AFB smear and culture are pending. Chest x-ray done on 06/08 showed increased opacity in the left lower lobe consistent with increasing pleural effusion and pleural parenchymal changes. Chest CT done on 06/07 shows near complete resolution of left pleural effusion with residual hydropneumothorax. Abdominal part of the CT shows cirrhosis and portal hypertension. MEDICATIONS: 1. Aldactone 50 mg p.o. daily. 2. Lasix 40 mg IV q.6 hours. 3. Ketorolac 30 mg IV q.6 hours p.r.n. 4. Zosyn 3.375 gm IV q.6 hours. 5. Pantoprazole 40 mg p.o. daily. 6. Narcotics one tablet p.o. q.3 p.r.n. 7. Zofran 4 mg IV q.4 p.r.n. PHYSICAL EXAMINATION: She is a pleasant, healthy looking female, distended but in no acute distress. Temperature is 98.1, pulse 95, respirations 18, blood pressure 132/74, O2 sat 95% on room air. Heart: Normal S1, S2 with a systolic ejection, II/ at the right upper sternal border. Lungs: Decreased breath sounds at the left base. Right lung normal, clear with no wheezes, rales or rhonchi. There is a chest tube with serosanguineous fluid. Abdomen: Distended, soft, could not evaluate hepatomegaly due distention. No CVA tenderness. Extremities: +2 pretibial edema bilaterally with multiple tattoos but no calf tenderness and no swelling or rashes. Skin is normal. She has multiple ecchymosis on antecubital area and lower abdominal folds where she is getting heparin shot. Head and ENT: Oropharynx is clear. Mouth is pink, no lesions, no thrush. Pupils equal and reactive, slightly icteric. Neurologic exam: Normal, alert and oriented x3. Motor strength is normal. 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 She was admitted with probably pneumonia, had a fever of 102.3 and a left parapneumonic effusion. Status post chest tube placement. She has improved with IV Zosyn. She had received prior to admission about 10 days of doxycycline without improvement. She is anxious to get started on treatment for hepatitis C. PLAN: The patient will be seen in my office in followup on June 21 at 1:30 to discuss hepatitis C treatment. Her treatment will include Epclusa for a total of 12 weeks along with ribavirin because of her liver cirrhosis. The patient will need followup with gastroenterology, hepatology and will need an endoscopy to rule out esophageal varices. She may benefit from a paracentesis to help with decreased bloating for therapeutic purposes. We will also add alpha fetoprotein for screening for liver cancer. PT was 18.1, INR 1.46. She will need screening for hepatocellular carcinoma every six months. We will obtain all the labs in order for her to get started on treatment as soon as she gets discharged and follows up at my office. WILLIAM
[2020-06-09] MEDS ORDERED: ALTEPLASE 2MG/2ML VIAL XX ONE (09:30)
[2020-06-09] MEDS: PANTOPRAZOLE 40MG TAB (PROTONIX) PO SCH (10:58)
[2020-06-09] MEDS: SPIRONOLACTONE 50 MG TAB PO SCH (10:58)
[2020-06-09] MEDS: HEPARIN SOD (PORCINE) 5000UNITS/ML 1ML VIAL/SYRINGE SC SCH ×2 (10:59→22:02)
--- NOTE | 2020-06-09 14:00 | IPN ---
PROGRESS NOTE DATE: 06/09/2020 Ms. Dong states that she is feeling better. She does not feel as much swelling in her legs, although they are quite swollen on physical examination. She is breathing well. Her vital signs show a maximum temperature of 98.5 with a heart rate that ranges between 82-95 in a sinus rhythm, respiratory rate of 16-20 without the use of accessory muscles, who is 93%-99% saturated on room air, and her blood pressure is ranging between 114/68 to 130/71. Her intake and output for the past 24 hours has been recorded as 1240 in and 1545 out for a negativity of 300 mL. She has put out only 20 mL from the chest tube. Her urine output has been 1525 mL. She weighs 96.4 kg today compared to 97.6 kg yesterday. PHYSICAL EXAMINATION: Her left side shows some decreased breath sounds in the left lower hemithorax. Percussion is dull at the very base. I hear no E-to-A egophony. The right side shows normal vesicular sounds without wheezes, rhonchi, or rales. Cardiac exam shows a faint 1-2 over 6 systolic ejection murmur now at the right upper sternal border and left lower sternal border. This is much decreased from where it was even 2 days ago and certainly on admission. I cannot feel her point of maximal impulse (PMI). S1 and S2 are normal. Abdomen is soft and nontender. Bowel sounds are positive. There is no hepatomegaly that I can appreciate, nor is there costovertebral angle (CVA) tenderness. Extremities show 3+ pretibial edema. No calf tenderness, no differential swelling of the upper extremities. Skin is warm, dry, and perfused without cyanosis or mottling, including that of the nailbeds and knee. Neck is supple. There is no jugular venous distention. No subcutaneous emphysema. Trachea is midline. Mouth shows the mucous membranes to be pink and moist. Lips and commissures without lesions. No thrush. Eyes show her pupils to be equal and reactive. Extraocular muscles intact. Sclerae anicteric. Neurologic shows II-XII intact. Normal gross motor, gross sensation intact. Gait is not tested. Psychiatric shows her to be awake, alert, and oriented times three with appropriate mood and affect and conversational. Her white count today is 5.2 with a hemoglobin and hematocrit of 8.4 and 26.2, respectively, down from 9.0 and 27.6 yesterday. Platelet count is 112 and stable. Differential shows 49% neutrophils, 28% lymphocytes, and 15% monocytes. There are no immature forms or toxic granulations. Her chemistries show normal electrolytes with a BUN and creatinine of 27 and 1.01, improved from 29 and 1.18 yesterday. Calcium is 7.7 with an albumin of 1.9. She has now received six 50 mL units of 25% albumin. Her AST and ALT are 69 and 34, respectively, with a total bilirubin of 2.1, which is unchanged from yesterday. Her chest x-ray still shows considerable blunting of the right costophrenic angle. It looks to be worse today than it was yesterday. I was expecting some reaccumulation of fluid secondary to the entrapped lung and the space between the trapped lung and the chest wall, but this looks to be more today. IMPRESSION: 1. Liver cirrhosis. 2. Ascites. 3. Pleural effusion, exudative. 4. Status post hepatitis C, probable cause of her liver cirrhosis. 5. Left lower lobe lung compression and lung entrapment. 6. Jaundice secondary to her cirrhosis, stable. 7. Hyperalbuminemia, improving with albumin infusions. I appreciate Dr. Milligan seeing patient for continuation of her hepatitis treatment. I do believe that she is an eventual candidate for liver transplant and after seeing gastroenterology should be referred to a transplant center for evaluation. We have somewhat the luxury of time, as this is a new presentation, and it looks as though we are being able to medically control it. I did note that when I first placed her chest tube that the fluid was partially clotted and, in fact, a cell count could not be undertaken because of a wide clot. She is probably leaking coagulation factors into her pleural fluid, causing it to clot. I am therefore going to redo a tPA pleurolysis. That will also clear the chest tube. I do suspect that the chest tube is partially blocked secondary to clotted serum from the pleural effusion.
--- NOTE | 2020-06-09 15:23 | IPNPDOC ---
Text Note Date of Service The patient was seen on 06/09/20. NOTE SUBJECTIVE: Richelle reports that her leg swelling is a little better, she can now bend her knees and they do not feel as heavy as before. She feels her abdomen is less bloated and the wall is not so tight. Chest tube remains in place but may be blocked .Dr Multani is planning to use TPA again today. CXR unchanged from yesterday. PHYSICAL EXAM: VITAL SIGNS: Please see below. GEN: well-nourished / well developed/ slightly anxious HEENT: lips acyanotic /mucus membranes moist and pink / sclera icteric/ + abdominojugular reflux CVS: RRR/NMRG/ radial pulses intact / +2 BLE extremity edema , more prominent at the left LUNGS: diminished breath sounds on the left with basal crackles. ABDOMEN: Parietal edema, soft, nontender, normal bowel sounds, ascites present. Extremities ; Bilateral pedal edema 4+ MSK/EXTREMITIES: NCAT / range of motion intact in all 4 extremities NEURO: CN 2-12 are grossly intact / speech is not dysarthric PSYCH: alert and oriented to person place and time/ able to understand and follow all commands Labs and Radiology: reviewed ASSESSMENT and plan: Ms. Dong is a 44-year-old female with a history of liver cirrhosis likely secondary to hepatitis C who presented with complaints of persistent cough, and acute onset of abdominal swelling and bilateral lower extremity swelling after completing a course of doxycycline. She was found to have decompensated liver cirrhosis and left sided pleural effusion. Left hemorrhagic Pleural effusion with clots. Had resolved on 06/07/20 CT chest but is back again in nex CXRs TPA in chest tube x 2 Has underlying entrapped lung. Fluid Cultures negative. Cytology and pathology negative for malignancy lots of inflammatory cells. CT chest on 06/05 with left lower lobe and lingular opacities. CT chest on 06/07/20: Near complete resolution to the left pleural effusion with small residual hydropneumothorax as well as possible chronic pleural thickening and mild passive atelectasis. Limited upper abdomen consistent with cirrhosis and portal hypertension including ascites. management as per Dr Multani. Entrapped left lung. Dr Multani thinks the pleural effusion is long standing and caused inflammatory changes and entrapment of the lung. suction increased to see it that will expand the lung. Left lower lobe pneumonia with parapneumonic effusion fluid culture was negative. continue zosyn day 6. Decompensated liver cirrhosis with thrombocytopenia, portal hypertension, ascites and generalized anasarca. due to untreated Hepatitis C. 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 MELD Score today = 14 points will refer to GI on discharge. albumin and iv lasix to help with diuresis. Aldactone. Appreciate Dr Milligan's help. Dr Milligan will see her in office on 06/21/20 Cholestatic Jaundice due to cirrhosis of liver with congestion. improving. Lactic acidosis probably due to cirrhosis of liver and infection now resolved. DVT PROPHYLAXIS: heparin VS,Fishbone, I+O VS, Fishbone, I+O Laboratory Tests 06/09/20 05:31 Vital Signs Date Time Temp Pulse Resp B/P (MAP) Pulse Ox O2 Delivery O2 Flow Rate FiO2 06/09/20 12:30 97.8 82 18 116/72 96 Room Air 06/07/20 04:00 2.0 I&O- Last 24 Hours up to 6 AM 06/09/20 06:00 Intake Total 1150.0 ml Output Total 2280 ml Balance -1130.0 ml BETSY VERGARA MD Jun 09, 2020 15:23
--- NOTE | 2020-06-09 21:17 | RO ---
OPERATIVE NOTE DATE OF OPERATION: 06/09/2020 PREPROCEDURE DIAGNOSIS: Loculated pleural effusion reaccumulated. POSTPROCEDURE DIAGNOSIS: Loculated pleural effusion reaccumulated. SURGEON: Rangel Multani M.D. PROCEDURE: TPA pleurolysis. DESCRIPTION OF PROCEDURE: The patient's chest tube was disconnected from the Pleur-Evac and clamped and prepped and draped in the usual sterile fashion. 6 mg of tPA in 100 mL of normal saline was then instilled in the chest tube. This was followed by a bolus of air to clear the chest tube. The clamp was immediately replaced. She was then turned from side to side in order to distribute the tPA. Her tube will be unclamped four hours from now. The patient tolerated the procedure well.
[2020-06-10] VITALS (8 sets, daily range): BP systolic 107–122; BP diastolic 55–66
[2020-06-10] MEDS: PIPERACILLIN/TAZOBACTAM SOD 3.375 GM in D5W MINI-BAG PLUS 50 ML IV SCH ×4 (02:44→20:30)
[2020-06-10] MEDS: FUROSEMIDE 40MG/4ML VIAL (J1940) IV SCH ×4 (04:07→20:31)
[2020-06-10] MEDS: KETOROLAC 30 MG/ML 1ML VIAL IV SCH ×2 (05:19→12:59)
[2020-06-10 06:16] LABS: ALBUMIN 1.9 GM/DL (3.2-5.2); BILIRUBIN,TOTAL 2.3 MG/DL (0.2-1.0); CALCIUM LEVEL 7.8 MG/DL (8.5-10.1); CREATININE FOR GFR 1.18 MG/DL (0.55-1.30); GLOMERULAR FILTRATION RATE 53.5 (>58); PHOSPHORUS LEVEL 5.1 MG/DL (2.5-4.9); POTASSIUM SERUM 3.5 MEQ/L (3.5-5.1); TOTAL PROTEIN 5.5 GM/DL (6.4-8.2)
--- NOTE | 2020-06-10 08:35 | REP ---
INDICATION: pleural effusion COMPARISON: 06/09/2020 TECHNIQUE: PA and lateral. FINDINGS: Left chest tube in stable position and decreased pleural fluid at the left base is suggested. Continued left basilar pleuroparenchymal changes are otherwise similar to prior examination. Aerated lung palomino are relatively clear. No new acute process. Visualized portions of the mediastinum and cardiac silhouette are stable and within normal limits. Skeletal structures are intact. IMPRESSION: Chest tube at the left base with suspected decreased left pleural fluid. The remainder of the pleuroparenchymal changes in the left hemithorax remain essentially stable. No new acute process. <Electronically signed by Jason Johnson > 06/10/20 0840
[2020-06-10] MEDS: PANTOPRAZOLE 40MG TAB (PROTONIX) PO SCH (08:56)
[2020-06-10] MEDS: SPIRONOLACTONE 50 MG TAB PO SCH (08:56)
[2020-06-10] MEDS: HEPARIN SOD (PORCINE) 5000UNITS/ML 1ML VIAL/SYRINGE SC SCH ×2 (08:56→20:31)
[2020-06-10] MEDS: NORCO, ANEXSIA 5/325MG TABLET (HYDROcodone/ACETAMINOPHEN) PO PRN ×2 (08:59→18:33)
--- NOTE | 2020-06-10 11:33 | IPNPDOC ---
Text Note Date of Service The patient was seen on 06/10/20. NOTE SUBJECTIVE: Patient complains of chest at the left side hurting today. Says did not have any pain before after painful after courtney TPA yesterday and drainage of large amount of fluid. Patient reports that her leg swelling is getting better, and her abdominal wall swelling is also better. Wall feels softer. She feels her abdomen is less bloated and the wall is not so tight. Chest tube remains in place . Had another TPA yesterday. CXR looks better today. PHYSICAL EXAM: VITAL SIGNS: Please see below. GEN: well-nourished / well developed/ slightly anxious HEENT: lips acyanotic /mucus membranes moist and pink / sclera icteric/ + abdominojugular reflux CVS: RRR/NMRG/ radial pulses intact / +4 BLE extremity edema , more prominent at the left LUNGS: diminished breath sounds on the left with crackles. ABDOMEN: Parietal edema, soft, nontender, normal bowel sounds, ascites present. Extremities ; Bilateral pedal edema 4+ MSK/EXTREMITIES: NCAT / range of motion intact in all 4 extremities NEURO: CN 2-12 are grossly intact / speech is not dysarthric PSYCH: alert and oriented to person place and time/ able to understand and follow all commands Labs and Radiology: reviewed ASSESSMENT and plan: Ms. Dong is a 44-year-old female with a history of liver cirrhosis likely secondary to hepatitis C who presented with complaints of persistent cough, and acute onset of abdominal swelling and bilateral lower extremity swelling after completing a course of doxycycline. She was found to have decompensated liver cirrhosis and left sided pleural effusion. Left hemorrhagic Pleural effusion with clots. Had resolved on 06/07/20 CT chest but is back again in nex CXRs TPA in chest tube x 2 Has underlying entrapped lung. Fluid Cultures negative. Cytology and pathology negative for malignancy lots of inflammatory cells. CT chest on 06/05 with left lower lobe and lingular opacities. CT chest on 06/07/20: Near complete resolution to the left pleural effusion with small residual hydropneumothorax as well as possible chronic pleural thickening and mild passive atelectasis. Limited upper abdomen consistent with cirrhosis and portal hypertension including ascites. management as per Dr uMltani. Entrapped left lung. Dr Multani thinks the pleural effusion is long standing and caused inflammatory changes and entrapment of the lung. chest tube in place Left lower lobe pneumonia with parapneumonic hemorrhagic effusion fluid culture was negative. continue zosyn day 7. sen By Dr Milligan. Decompensated liver cirrhosis with thrombocytopenia, portal hypertension, ascites and generalized anasarca. due to untreated Hepatitis C. 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 MELD Score today = 14 points will refer to GI on discharge. albumin and iv lasix to help with diuresis. Aldactone. Appreciate Dr Milligan's help. Dr Milligan will see her in office on 06/21/20 Cholestatic Jaundice due to cirrhosis of liver with congestion. improving. Lactic acidosis probably due to cirrhosis of liver and infection now resolved. DVT PROPHYLAXIS: heparin VS,Fishbone, I+O VS, Fishbone, I+O Laboratory Tests 06/10/20 05:30 Vital Signs Date Time Temp Pulse Resp B/P (MAP) Pulse Ox O2 Delivery O2 Flow Rate FiO2 06/10/20 06:07 97.8 88 16 108/56 92 Room Air 06/07/20 04:00 2.0 I&O- Last 24 Hours up to 6 AM 06/10/20 06:00 Intake Total 450.0 ml Output Total 2271 ml Balance -1821.0 ml BETSY VERGARA MD Jun 10, 2020 07:36
[2020-06-10] MEDS ORDERED: MIRALAX *UNIT DOSE* 17GM PACKET PO ONE (16:00)
[2020-06-10] MEDS: DOCUSATE SODIUM 100MG CAPSULE PO SCH (20:30)
[2020-06-10] MEDS: PERCOCET 5MG/325MG TAB PO PRN (23:49)
[2020-06-11] VITALS (14 sets, daily range): BP systolic 110–132; BP diastolic 54–72
[2020-06-11] MEDS: PIPERACILLIN/TAZOBACTAM SOD 3.375 GM in D5W MINI-BAG PLUS 50 ML IV SCH ×4 (02:15→21:23)
[2020-06-11] MEDS: FUROSEMIDE 40MG/4ML VIAL (J1940) IV SCH ×4 (02:15→21:23)
[2020-06-11] MEDS ORDERED: MIRALAX *UNIT DOSE* 17GM PACKET PO PRN (07:00)
--- NOTE | 2020-06-11 08:34 | REP ---
INDICATION: pleural effusion COMPARISON: 06/10/2020 TECHNIQUE: PA and lateral. FINDINGS: Left chest tube in stable position. Left-sided pleuroparenchymal changes are unchanged. Right hemithorax is clear. No new acute process. Visualized mediastinum and cardiac silhouette normal. Skeletal structures intact. IMPRESSION: No significant change from prior examination. <Electronically signed by Jason Johnson > 06/11/20 [id number]
[2020-06-11] MEDS: DOCUSATE SODIUM 100MG CAPSULE PO SCH ×2 (08:44→21:22)
[2020-06-11] MEDS: PANTOPRAZOLE 40MG TAB (PROTONIX) PO SCH (08:44)
[2020-06-11] MEDS: SPIRONOLACTONE 50 MG TAB PO SCH (08:44)
[2020-06-11] MEDS: HEPARIN SOD (PORCINE) 5000UNITS/ML 1ML VIAL/SYRINGE SC SCH ×2 (08:44→21:23)
[2020-06-11 08:49] LABS: HEMATOCRIT 23.2 % (36.0-47.0); HEMOGLOBIN 7.7 g/dl (12.0-15.5); MEAN CORPUSCULAR HGB CONC 33.2 g/dl (32.0-36.5); MEAN CORPUSCULAR VOLUME 99.6 fl (80.0-96.0); PLATELET COUNT, AUTOMATED 109 10^3/uL (150-450); RED BLOOD COUNT 2.33 10^6/uL (4.00-5.40)
[2020-06-11 09:11] LABS: BLOOD UREA NITROGEN 22 MG/DL (7-18); CALCIUM LEVEL 7.9 MG/DL (8.5-10.1); CARBON DIOXIDE LEVEL 28 MEQ/L (21-32); CHLORIDE LEVEL 105 MEQ/L (98-107); CREATININE FOR GFR 1.05 MG/DL (0.55-1.30); GLOMERULAR FILTRATION RATE > 60.0 (>58); GLUCOSE, FASTING 111 MG/DL (70-100); POTASSIUM SERUM 3.4 MEQ/L (3.5-5.1); SODIUM LEVEL 142 MEQ/L (136-145)
[2020-06-12] VITALS (21 sets, daily range): BP systolic 106–124; BP diastolic 57–69; O2SAT 91–95
[2020-06-12] MEDS: PERCOCET 5MG/325MG TAB PO PRN ×2 (00:32→10:41)
[2020-06-12] MEDS: PIPERACILLIN/TAZOBACTAM SOD 3.375 GM in D5W MINI-BAG PLUS 50 ML IV SCH ×4 (02:23→20:11)
[2020-06-12] MEDS: FUROSEMIDE 40MG/4ML VIAL (J1940) IV SCH ×4 (02:24→20:13)
[2020-06-12 06:59] LABS: HEMATOCRIT 25.2 % (36.0-47.0); HEMOGLOBIN 8.2 g/dl (12.0-15.5); MEAN CORPUSCULAR HEMOGLOBIN 31.5 pg (27.0-33.0); MEAN CORPUSCULAR HGB CONC 32.5 g/dl (32.0-36.5); MEAN CORPUSCULAR VOLUME 96.9 fl (80.0-96.0); PLATELET COUNT, AUTOMATED 100 10^3/uL (150-450); WHITE BLOOD COUNT 4.3 10^3/uL (4.0-10.0)
[2020-06-12 07:40] LABS: ALBUMIN 2.4 GM/DL (3.2-5.2); ALT/SGPT 27 U/L (12-78); BILIRUBIN,TOTAL 2.8 MG/DL (0.2-1.0); BLOOD UREA NITROGEN 18 MG/DL (7-18); CARBON DIOXIDE LEVEL 29 MEQ/L (21-32); CHLORIDE LEVEL 107 MEQ/L (98-107); CHOLESTEROL LEVEL 72 MG/DL (< 200); CPK CREATINE PHOSPHOKINASE 46 U/L (26-192); CREATININE FOR GFR 0.95 MG/DL (0.55-1.30); GLOMERULAR FILTRATION RATE > 60.0 (>58); GLUCOSE, FASTING 88 MG/DL (70-100); LDH LACTATE DEHYDROGENASE 221 U/L (84-246); PHOSPHORUS LEVEL 4.4 MG/DL (2.5-4.9); POTASSIUM SERUM 3.3 MEQ/L (3.5-5.1); SODIUM LEVEL 143 MEQ/L (136-145); TOTAL PROTEIN 5.7 GM/DL (6.4-8.2); TRIGLYCERIDES LEVEL 70 MG/DL (<150)
--- NOTE | 2020-06-12 08:16 | IPN ---
PROGRESS NOTE DATE: 06/11/2020 SUBJECTIVE: Chantel is seen by rounding for the hospitalist. She has a left pleural effusion status post chest tube drainage with tPA yesterday. She feels less short of breath. She feels quite a bit better than yesterday. Denies chest pain or shortness of breath. She says the pleuritic pain she had yesterday is improved quite a bit. She has a history of cirrhosis with portal hypertension, ascites, pancytopenia, untreated hepatitis C, entrapped left lung with a left lung pneumonia with parapneumonic hemorrhagic effusion for which she is on Zosyn currently day #8. Denies any fevers, chills, or a significant cough. OBJECTIVE: VITAL SIGNS: Blood pressure 110/58, pulse rate ___, respiratory rate 16, O2 saturation 95%. GENERAL APPEARANCE: Alert, conversant, in no distress. LUNGS: Decreased breath sounds, but clear bilaterally. Chest tube left chest. HEART: Regular rhythm. ABDOMEN: Soft and nontender. EXTREMITIES: Trace peripheral edema. LABORATORY DATA: White count 4.0, hemoglobin 7.7, platelets 109,000. Sodium 142, potassium 3.4, BUN 22, creatinine 1.0, glucose 111, bilirubin has been in the 2.3 range. IMAGING: Chest x-ray today shows no change from previous. Left chest tube in place. ASSESSMENT AND PLAN: 1. Hemorrhagic effusion left chest status post left chest tube. This is being managed by Dr. Multani. 2. Pneumonia, left lung, on Zosyn day #8. 3. Cirrhosis secondary to hepatitis C. Those parameters are currently stable.
[2020-06-12] MEDS: SPIRONOLACTONE 50 MG TAB PO SCH (09:07)
[2020-06-12] MEDS: PANTOPRAZOLE 40MG TAB (PROTONIX) PO SCH (09:08)
[2020-06-12] MEDS: HEPARIN SOD (PORCINE) 5000UNITS/ML 1ML VIAL/SYRINGE SC SCH ×2 (09:08→20:12)
[2020-06-12] MEDS: DOCUSATE SODIUM 100MG CAPSULE PO SCH ×2 (09:08→20:11)
--- NOTE | 2020-06-12 09:43 | IPN ---
PROGRESS NOTE DATE: 06/11/2020 SUBJECTIVE: Ms. Dong states that she is feeling better today. She is breathing well. She is concerned about air sounds coming out the chest tube. I am going to transfuse her because her hematocrit is now 23. We will check her stools. I have gone over the risks and indications for transfusion. OBJECTIVE: VITAL SIGNS: Show a T-max of 98.1 with a heart rate range that ranges between 80 and 89 in sinus rhythm, respiratory rate of 16-20 without the use of accessory muscle, who is 91% to 95% saturated on room air, and whose blood pressure is 129/61 to 110/58. INTAKE AND OUTPUT: Over the past 24 hours has been recorded as 850 in and 1975 out for a negativity of 1126 mL. She has put 276 mL out the chest tube and there is no air leak. Her weight today is 96.4 kg compared to 96.5 kg yesterday. RESPIRATORY: I hear squeaks and sloshes consistent with an airspace in the right lower hemithorax. The remainder of the lung shows normal vesicular sounds without wheezes, rhonchi, or rales. Percussion note is full to the diaphragm. CARDIAC: Shows the same 1-2 systolic ejection murmur at the right upper sternal border and left lower sternal border. I cannot feel her PMI. S1, S2 are normal. ABDOMEN: Soft and nontender. Bowel sounds are positive. There is no hepatomegaly. No costovertebral angle (CVA) tenderness that I can detect. EXTREMITIES: Show still 3+ pretibial edema. No calf tenderness. No differential swelling of the upper extremities. SKIN: Warm, dry, and perfused without cyanosis or mottling, including that of the nail beds and knees. NECK: Supple. There is no jugular venous distention. No subcutaneous emphysema. Trachea is midline. MOUTH: Shows the mucous membranes to be pink and moist. Lips and gums without lesions and no thrush. EYES: Show her pupils equal and reactive. Extraocular movements are intact. Sclerae nonicteric. NEUROLOGIC: Shows II through XII intact. Normal gross motor, gross sensation intact. Gait is not tested. PSYCHIATRIC: Shows her to be awake, alert, and oriented x3 with appropriate mood and affect and conversational. LABORATORY DATA: Her white count today is 4.0 with hemoglobin and hematocrit of 7.7 and 23.2 respectively. Platelet count is 109,000 and stable. Chemistries today show a potassium of 3.4 with a BUN and creatinine of 22.0 and 1.05 respectively. Glucose is 111 and calcium is 7.9. IMAGING: Her chest x-ray today is somewhat encouraging in that the space is not filled up. Nevertheless, she still has an entrapped lung. I see no infiltrates on the lateral film. IMPRESSION: 1. Liver cirrhosis. 2. Ascites. 3. Pleural effusion exudative. 4. Status post hepatitis C, probable cause of her liver cirrhosis by history and not completely treated. 5. Left lower lobe compression and lung entrapment. 6. Jaundice secondary to her cirrhosis, improving. 7. Hyperbilirubinemia improving with albumin infusions. 8. Anemia of unknown cause. PLAN AND DISCUSSION: I am gratified that her chest tube is putting out less and I will discontinue the suction from it. I will transfuse her as noted above. Her labs ran out today and I have restarted them. We will heme test her stools. She is certainly at risk for upper GI bleeding considering the extent of her cirrhosis. Certainly her anemia cannot be explained at this point by hemodilution as she is net negative.
[2020-06-12] MEDS ORDERED: POTASSIUM CHLORIDE 10 MEQ SR TABLET PO ONE (10:00)
--- NOTE | 2020-06-12 10:31 | IPN ---
PROGRESS NOTE DATE: 06/12/2020 SUBJECTIVE: Ms. Dong is doing well today. She states she is feeling well and her legs are feeling better. They still, however, are edematous. OBJECTIVE: VITAL SIGNS: Show a T-max of 98.6 with a heart rate that ranges between 76-92 in sinus rhythm. Respiratory rate that is a constant 18, who is 92% to 93% saturated on room air, and whose blood pressure is ranging 109/59 to 124/66. INTAKE AND OUTPUT: Over the past 24 hours has been recorded as 1405 in and 3430 out for a negativity of 2 liters. She has put out 100 mL from her chest tube and there is no air leak. She has put out 3250 mL in urine. Her weight today is 95.9 compared to 96.4 yesterday. RESPIRATORY: She has equal breath sounds on either side. I hear no wheezes, rhonchi, or rales. Percussion notes are full to the diaphragm. CARDIAC: Shows the same 2/6 systolic ejection murmur at the right upper sternal border and left lower sternal border. I cannot feel her PMI. S1, S2 are normal. ABDOMEN: Soft and nontender. Bowel sounds are positive. There is no hepatomegaly. No CVA tenderness that I can appreciate. EXTREMITIES: Show 2+ pretibial edema. No calf tenderness. No differential swelling of the upper extremities. Her thighs are less edematous today. SKIN: Warm, dry, and perfused without cyanosis or mottling, including that of the nail beds and knees. NECK: Supple. There is no jugular venous distention. No subcutaneous emphysema. Trachea is midline. MOUTH: Shows her mucous membranes to be pink and moist. Lips and gums without lesions and no thrush. EYES: Show her pupils equal and reactive. Extraocular movements are intact. Sclerae are slightly icteric. NEUROLOGIC: Shows II through XII intact. Normal gross motor, gross sensation intact. Gait is not tested. PSYCHIATRIC: Shows her to be awake, alert, and oriented x3 with appropriate mood and affect and conversational. LABORATORY DATA: Her white count today is 4.3 with hemoglobin and hematocrit of 8.2 and 25.2 respectively. Platelet count is 100,000 and stable. There is no differential on her today. Her electrolytes show a potassium of 3.3 down from 3.4 yesterday. BUN and creatinine are 18 and 0.95 respectively with a glucose of 88. Calcium is 8.0 with an albumin of 2.4 after albumin effusion. Liver functions are normal today. It should be noted that her H&H today is improved from 7.7 to 23.2, yesterday at 8.2 and 25.2 today, after a one unit transfusion. IMAGING: Her chest x-ray today still shows an entrapped left lower lobe. The costophrenic angle is clear and she is obviously not re-accumulating clotting fluid. I see no other infiltrates. IMPRESSION: 1. Liver cirrhosis. 2. Ascites. 3. Pleural effusion exudative. 4. Status post hepatitis C probable cause of her liver cirrhosis by history and not completely treated in the past. 5. Left lower lobe compression with lung entrapment. 6. Jaundice secondary to cirrhosis. 7. Hyperbilirubinemia. 8. Anemia of unknown cause. PLAN AND DISCUSSION: Her occult blood stool has not been reported back. I will leave her chest tube in one more day just to make sure that the decrease in fluid is real and probably remove it tomorrow. She has been ordered one dose of potassium and I will change it to a b.i.d. dose of 40 mg. She is on aggressive diuresis, which is certainly appropriate and, I suspect, she is going to need more potassium than one dose. She also has a one time infusion of 10 mEq. I really doubt that this was an underlying pneumonia or empyema with the lung being entrapped. I suspect that her pleural effusion is secondary to her liver disease and ascites. She does remain on Zosyn. Aerobic and anaerobic cultures are negative of the pleural fluid. Blood cultures are negative. No sputum culture was obtained early on.
[2020-06-12] MEDS: KCL 10MEQ/100ML SWI (KRUN) 10 MEQ in IV 1 EA IV SCH ×4 (10:32→14:02)
--- NOTE | 2020-06-12 14:22 | IPNPDOC ---
Text Note Date of Service The patient was seen on 06/12/20. NOTE Subjective: She was seen and examined this morning at bedside. Patient is feeling better breathing feels better and she is able to take deeper breaths without being in pain. He tells me her lower extremity edema has also improved and she is able to bend her knee now. No acute overnight events. Left-sided chest tubes in place. Denies any fevers or chills. Denies coughing. Objective: Constitutional: Awake and alert, in no apparent distress ENT: Scleral icterus Respiratory: Decreased breath sounds. Left lung chest tube in place. No respiratory distress. No use of accessory muscles. Cardiovascular: Regular heart rate Gastrointestinal: Abdomen is soft, non distended, non tender, BS present. Musculoskeletal: 2+ bilateral pedal edema Neurologic: No focal neurological deficit. Mental Status: A&O x3, normal affect Skin: Warm, dry Assessment/plan: Ms. Dong is a 44-year-old female with a history of liver cirrhosis likely secondary to hepatitis C who presented with complaints of persistent cough, and acute onset of abdominal swelling and bilateral lower extremity swelling after completing a course of doxycycline. She was found to have decompensated liver cirrhosis and left sided pleural effusion. # Hemorrhagic pleural effusion left chest s/p left chest tube: Managed by Dr Multani # Entrapped left lung: Dr Multani thinks the pleural effusion is long standing and caused inflammatory changes and entrapment of the lung. # Possible L PNA: she's on Zosyn day 9. Dr Multani not convinced this was a real PNA. Once chest tube is removed may discontinue the Abx. ID consulted. # Cirrhosis 2/2 untreated hepatitis C 20 yr ago IV drug abuse: with portal HTN, ascites, pancytopenia. GI and ID referral on discharge. Dr Milligan will see her in office on 06/21/20. Continue IV lasix and aldactone. potassium replacement. # DVT prophylaxis: Heparin A Youse[facility]ist Federico BLISS, I+O VSFederico, I+O Laboratory Tests 06/12/20 06:32 Vital Signs Date Time Temp Pulse Resp B/P (MAP) Pulse Ox O2 Delivery O2 Flow Rate FiO2 06/12/20 11:41 98.3 78 18 124/66 (85) 93 Room Air 06/07/20 04:00 2.0 I&O- Last 24 Hours up to 6 AM 06/12/20 06:00 Intake Total 1705.0 ml Output Total 2745 ml Balance -1040.0 ml CHANTAL DEUTSCH MD Jun 12, 2020 14:22
[2020-06-12] MEDS: POTASSIUM CHLORIDE 10 MEQ SR TABLET PO SCH (20:12)
[2020-06-12] MEDS: ONDANSETRON 4MG/2ML VIAL IV PRN (20:21)
[2020-06-13] VITALS (14 sets, daily range): BP systolic 105–118; BP diastolic 54–77; O2SAT 92–97
[2020-06-13] MEDS: PIPERACILLIN/TAZOBACTAM SOD 3.375 GM in D5W MINI-BAG PLUS 50 ML IV SCH ×4 (02:50→21:56)
[2020-06-13] MEDS: FUROSEMIDE 40MG/4ML VIAL (J1940) IV SCH ×5 (02:51→21:55)
[2020-06-13 06:13] LABS: HEMATOCRIT 27.2 % (36.0-47.0); HEMOGLOBIN 8.6 g/dl (12.0-15.5); MEAN CORPUSCULAR HEMOGLOBIN 31.5 pg (27.0-33.0); MEAN CORPUSCULAR HGB CONC 31.6 g/dl (32.0-36.5); MEAN CORPUSCULAR VOLUME 99.6 fl (80.0-96.0); PLATELET COUNT, AUTOMATED 103 10^3/uL (150-450); RED BLOOD COUNT 2.73 10^6/uL (4.00-5.40); WHITE BLOOD COUNT 4.2 10^3/uL (4.0-10.0)
[2020-06-13 06:43] LABS: ALBUMIN 2.4 GM/DL (3.2-5.2); ALT/SGPT 31 U/L (12-78); BILIRUBIN,TOTAL 2.5 MG/DL (0.2-1.0); BLOOD UREA NITROGEN 13 MG/DL (7-18); CALCIUM LEVEL 8.7 MG/DL (8.5-10.1); CARBON DIOXIDE LEVEL 29 MEQ/L (21-32); CHLORIDE LEVEL 105 MEQ/L (98-107); CHOLESTEROL LEVEL 75 MG/DL (< 200); CPK CREATINE PHOSPHOKINASE 33 U/L (26-192); CREATININE FOR GFR 1.06 MG/DL (0.55-1.30); GLOMERULAR FILTRATION RATE > 60.0 (>58); GLUCOSE, FASTING 92 MG/DL (70-100); LDH LACTATE DEHYDROGENASE 181 U/L (84-246); PHOSPHORUS LEVEL 4.5 MG/DL (2.5-4.9); POTASSIUM SERUM 3.7 MEQ/L (3.5-5.1); SODIUM LEVEL 140 MEQ/L (136-145); TOTAL PROTEIN 6.3 GM/DL (6.4-8.2); TRIGLYCERIDES LEVEL 60 MG/DL (<150)
[2020-06-13] MEDS: POTASSIUM CHLORIDE 10 MEQ SR TABLET PO SCH ×2 (08:08→21:57)
[2020-06-13] MEDS: SPIRONOLACTONE 50 MG TAB PO SCH (08:08)
[2020-06-13] MEDS: PERCOCET 5MG/325MG TAB PO PRN ×2 (08:08→15:19)
[2020-06-13] MEDS: HEPARIN SOD (PORCINE) 5000UNITS/ML 1ML VIAL/SYRINGE SC SCH ×2 (08:08→21:00)
[2020-06-13] MEDS: DOCUSATE SODIUM 100MG CAPSULE PO SCH ×2 (08:09→21:57)
[2020-06-13] MEDS: PANTOPRAZOLE 40MG TAB (PROTONIX) PO SCH (08:09)
--- NOTE | 2020-06-13 08:15 | IPNPDOC ---
Text Note Date of Service The patient was seen on 06/13/20. NOTE Subjective: Patient seen and examined this morning at bedside. She still has her chest tube in place and will be seen by Dr. Multani later today and possibly have it removed. She tells me she feels that her breast today with no pain in deep inspiration. There is no acute overnight events. Patient denies any shortness of breath or chest pain. She's been trying to eat more. Objective: Constitutional: Awake and alert, in no apparent distress ENT: Scleral icterus Respiratory: Decreased breath sounds. Left lung chest tube in place. No respiratory distress. No use of accessory muscles. Cardiovascular: Regular heart rate Gastrointestinal: Abdomen is soft, non distended, non tender, BS present. Musculoskeletal: 2+ bilateral pedal edema Neurologic: No focal neurological deficit. Mental Status: A&O x3, normal affect Skin: Warm, dry Assessment/plan: Ms. Dong is a 44-year-old female with a history of liver cirrhosis likely secondary to hepatitis C who presented with complaints of persistent cough, and acute onset of abdominal swelling and bilateral lower extremity swelling after completing a course of doxycycline. She was found to have decompensated liver ci rrhosis and left sided pleural effusion. # Hemorrhagic pleural effusion left chest s/p left chest tube: Managed by Dr Multani, might be getting removed today # Entrapped left lung: Dr Multani thinks the pleural effusion is long standing and caused inflammatory changes and entrapment of the lung. # Possible L PNA: she's on Zosyn day 9. Dr Multani not convinced this was a real PNA. Once chest tube is removed may discontinue the Abx. ID consulted. # Cirrhosis 2/2 untreated hepatitis C 20 yr ago IV drug abuse: with portal HTN, ascites, pancytopenia. GI and ID referral on discharge. Dr Milligan will see her in office on 06/21/20. Continue IV lasix and aldactone. potassium replacement. # DVT prophylaxis: Heparin A Youse[facility] Federico BLISS, I+O Federico BLISS, I+O Laboratory Tests 06/13/20 05:50 Vital Signs Date Time Temp Pulse Resp B/P (MAP) Pulse Ox O2 Delivery O2 Flow Rate FiO2 06/13/20 08:08 18 Room Air 06/13/20 04:00 1.0 06/13/20 04:00 98.3 78 118/77 (91) 95 I&O- Last 24 Hours up to 6 AM0 06/13/20 06:00 Intake Total 1370.0 ml Output Total 4405 ml Balance -3035.0 ml CHANTAL DEUTSCH MD Jun 13, 2020 08:15
--- NOTE | 2020-06-13 11:10 | REP ---
INDICATION: pleural effusion COMPARISON: 06/12/2020 TECHNIQUE: PA and lateral. FINDINGS: Left chest tube and left pleuroparenchymal changes remains stable. Right hemithorax is clear. No new acute process identified. Mediastinum and cardiac silhouette are within normal limits. IMPRESSION: Stable changes at the left base. No new acute process. <Electronically signed by Jason Johnson > 06/13/20 1106
[2020-06-13] MEDS: NORCO, ANEXSIA 5/325MG TABLET (HYDROcodone/ACETAMINOPHEN) PO PRN (11:39)
[2020-06-14] VITALS (21 sets, daily range): BP systolic 92–120; BP diastolic 51–70; O2SAT 91–95
[2020-06-14] MEDS: PIPERACILLIN/TAZOBACTAM SOD 3.375 GM in D5W MINI-BAG PLUS 50 ML IV SCH (02:48)
[2020-06-14] MEDS: FUROSEMIDE 40MG/4ML VIAL (J1940) IV SCH ×4 (03:00→20:56)
[2020-06-14 06:00] LABS: HEMATOCRIT 26.7 % (36.0-47.0); HEMOGLOBIN 8.5 g/dl (12.0-15.5); MEAN CORPUSCULAR HEMOGLOBIN 32.2 pg (27.0-33.0); MEAN CORPUSCULAR HGB CONC 31.8 g/dl (32.0-36.5); MEAN CORPUSCULAR VOLUME 101.1 fl (80.0-96.0); RED BLOOD COUNT 2.64 10^6/uL (4.00-5.40); WHITE BLOOD COUNT 3.5 10^3/uL (4.0-10.0)
[2020-06-14 06:03] LABS: PLATELET COUNT, AUTOMATED 97 10^3/uL (150-450)
[2020-06-14 06:39] LABS: ALBUMIN 2.2 GM/DL (3.2-5.2); BILIRUBIN,TOTAL 1.9 MG/DL (0.2-1.0); CALCIUM LEVEL 8.1 MG/DL (8.5-10.1); CREATININE FOR GFR 1.09 MG/DL (0.55-1.30); GLOMERULAR FILTRATION RATE 58.6 (>58); PHOSPHORUS LEVEL 4.8 MG/DL (2.5-4.9); TOTAL PROTEIN 5.8 GM/DL (6.4-8.2)
--- NOTE | 2020-06-14 08:11 | IPNPDOC ---
Text Note Date of Service The patient was seen on 06/14/20. NOTE Subjective: She was seen and examined this morning at bedside. Patient tells me chest tube was removed yesterday by Dr. Multani. She feels about the same. There was little bit of discharge from the chest tube site which is now stopped. She feels okay taking deep breaths now. She feels weak but she is able to eat and has been trying to walk on her room. She denies any chest pain. Objective: Constitutional: Awake and alert, in no apparent distress ENT: Scleral icterus appears improved Respiratory: Decreased breath sounds. No respiratory distress. No use of accessory muscles. Left-sided chest tube now removed dressing in place. Cardiovascular: Regular heart rate Gastrointestinal: Abdomen is soft, non distended, non tender, BS present. Musculoskeletal: 2+ bilateral pedal edema Neurologic: No focal neurological deficit. Mental Status: A&O x3, normal affect Skin: Warm, dry Assessment/plan: Ms. Dong is a 44-year-old female with a history of liver cirrhosis likely secondary to hepatitis C who presented with complaints of persistent cough, and acute onset of abdominal swelling and bilateral lower extremity swelling after completing a course of doxycycline. She was found to have decompensated liver cirrhosis and left sided pleural effusion. # Hemorrhagic pleural effusion left chest s/p left chest tube: Managed by Dr Multani. Was removed on 06/13/2020. PT/OT eval today home vs rehab. # Entrapped left lung: Dr Multani thinks the pleural effusion is long standing and caused inflammatory changes and entrapment of the lung. # Possible L PNA: Dr Multani not convinced this was a real PNA. ID consulted. Chest was removed on 06/13/2020 this when Zosyn was discontinued. # Cirrhosis 2/2 untreated hepatitis C 20 yr ago IV drug abuse: with portal HTN, ascites, pancytopenia. GI and ID referral on discharge. Dr Milligan will see her in office on 06/21/20. Continue IV lasix and aldactone. potassium replacement. # DVT prophylaxis: Heparin A Yousef Hospitalist VS,Federico, I+O VS, Federico, I+O Laboratory Tests 06/14/20 05:50 Vital Signs Date Time Temp Pulse Resp B/P (MAP) Pulse Ox O2 Delivery O2 Flow Rate FiO2 06/14/20 04:00 98.1 81 18 92/51 (65) 93 Room Air 06/13/20 12:00 1.0 I&O- Last 24 Hours up to 6 AM 06/14/20 06:00 Intake Total 720 ml Output Total 3575 ml Balance -2855 ml CHANTAL DEUTSCH MD Jun 14, 2020 08:11
[2020-06-14] MEDS: PANTOPRAZOLE 40MG TAB (PROTONIX) PO SCH (10:14)
[2020-06-14] MEDS: DOCUSATE SODIUM 100MG CAPSULE PO SCH ×2 (10:14→20:54)
[2020-06-14] MEDS: POTASSIUM CHLORIDE 10 MEQ SR TABLET PO SCH ×2 (10:15→20:55)
[2020-06-14] MEDS: HEPARIN SOD (PORCINE) 5000UNITS/ML 1ML VIAL/SYRINGE SC SCH ×3 (10:15→20:55)
[2020-06-14] MEDS: SPIRONOLACTONE 50 MG TAB PO SCH (10:16)
--- NOTE | 2020-06-14 10:31 | IPN ---
PROGRESS NOTE DATE: 06/13/2020 SUBJECTIVE: Ms. Dong is feeling better today including her legs. She is breathing well. She has put out minimally out the chest tube now for two days. Her chest x-ray shows her lungs fully expand to the chest wall, except at the very lower portion where it is entrapped in the left lower hemithorax. OBJECTIVE: VITAL SIGNS: Show a T-max of 99.2 with a heart rate that ranges between 74 and 91 in sinus rhythm. Respiratory rate of 16-20 without the use of accessory muscles who is 91% to 97% saturated and now on 1 liter nasal cannula and whose blood pressure is ranging between 118/77 to 105/54. INTAKE AND OUTPUT: Over the past 24 hours has been recorded as 1405 in and 3430 out for a negativity of 2000 mL. She has put out 160 mL in the chest tube. There is no air leak. Her weight today is 93.3 kg compared to 95.9 kg yesterday. RESPIRATORY: She has equal breath sounds on either side. Percussion notes are full to the diaphragm. I hear no wheezes, rhonchi, or rales. CARDIAC: Shows a 2/6 systolic ejection murmur at the right upper sternal border and left lower sternal border. I cannot feel her PMI. S1 and S2 are normal. ABDOMEN: Soft and nontender. Bowel sounds are positive. There is no hepatomegaly. No CVA tenderness. EXTREMITIES: Show 2 to 3+ pretibial edema. No calf tenderness. No differential swelling of the upper extremities. SKIN: Warm, dry, and perfused without cyanosis or mottling, including that of the nail beds and knees. NECK: Supple. There is no jugular venous distention. No subcutaneous emphysema. Trachea is midline. MOUTH: Shows the mucous membranes to be pink and moist. Lips and gums without lesions and no thrush. EYES: Show her pupils equal and reactive. Extraocular movements are intact. Sclerae nonicteric. NEUROLOGIC: Shows II through XII intact. Normal gross motor, gross sensation intact. Gait is not tested. PSYCHIATRIC: Shows her to be awake, alert, and oriented x3 with appropriate mood and affect and conversational. INVESTIGATIONS: Her white count is 4.2 with hemoglobin and hematocrit of 8.6 and 27.2 up from 8.2 and 25.3 yesterday. Platelet count is 103,000 and stable. There is no differential on her. Electrolytes are normal with a BUN and creatinine of 13 and 1.06. Glucose is 92. Potassium today is up to 3.7. Calcium is 8.7 with an albumin of 2.4 now after 13 units of 50 mL of 25% albumin and one packed red cell transfusion yesterday. Total bilirubin is 2.5 IMAGING: Her chest x-ray is described above still with the entrapped lung at the left lower hemithorax. There is no accumulation of fluid within the space. IMPRESSION: 1. Liver cirrhosis. 2. Ascites. 3. Pleural effusion exudative. 4. Status post hepatitis C, probable cause of her liver cirrhosis and by history, not completely treated in the past. 5. Left lower compression with lung entrapment. 6. Jaundice secondary to cirrhosis, improved. 7. Hyperbilirubinemia. 8. Anemia of unknown cause. PLAN AND DISCUSSION: I will take out her chest tube today. She now has positive occult fecal blood that probably explains her anemia. She will need a GI consult. The space will no doubt fill with fluid once again. Hopefully now that she is being diuresed and her cirrhosis is coming under control, the fluid will not accumulate to such an extent that it will fill the chest as it once did; but rather, just fill the space where the lung is entrapped. Her potassium is marginally improved.
--- NOTE | 2020-06-14 10:43 | REP ---
INDICATION: pleural effusion COMPARISON: 06/13/2020 TECHNIQUE: PA and lateral. FINDINGS: The left basilar chest tube has been removed and there is been a small reaccumulation of pleural fluid at the left base. The underlying pleuroparenchymal changes remain stable. The right hemithorax is well aerated and clear. Visualized portions of the mediastinum and cardiac silhouette are normal. IMPRESSION: 1. Small amount of pleural fluid at the left base now noted. 2. Remainder of examination remains stable. <Electronically signed by Jason Johnson > 06/14/20 1037
[2020-06-14] MEDS: PERCOCET 5MG/325MG TAB PO PRN (11:20)
[2020-06-15] VITALS (15 sets, daily range): BP systolic 99–114; BP diastolic 55–64; O2SAT 91–95
[2020-06-15] MEDS: FUROSEMIDE 40MG/4ML VIAL (J1940) IV SCH ×3 (03:25→14:33)
[2020-06-15 05:58] LABS: HEMATOCRIT 28.7 % (36.0-47.0); MEAN CORPUSCULAR HEMOGLOBIN 31.7 pg (27.0-33.0); MEAN CORPUSCULAR HGB CONC 31.4 g/dl (32.0-36.5); MEAN CORPUSCULAR VOLUME 101.1 fl (80.0-96.0); PLATELET COUNT, AUTOMATED 102 10^3/uL (150-450); RED BLOOD COUNT 2.84 10^6/uL (4.00-5.40); WHITE BLOOD COUNT 4.5 10^3/uL (4.0-10.0)
[2020-06-15 06:34] LABS: ALBUMIN 2.3 GM/DL (3.2-5.2); ALT/SGPT 32 U/L (12-78); BLOOD UREA NITROGEN 12 MG/DL (7-18); CALCIUM LEVEL 8.7 MG/DL (8.5-10.1); CARBON DIOXIDE LEVEL 30 MEQ/L (21-32); CHLORIDE LEVEL 105 MEQ/L (98-107); CHOLESTEROL LEVEL 87 MG/DL (< 200); CPK CREATINE PHOSPHOKINASE 34 U/L (26-192); GLOMERULAR FILTRATION RATE > 60.0 (>58); GLUCOSE, FASTING 103 MG/DL (70-100); LDH LACTATE DEHYDROGENASE 197 U/L (84-246); PHOSPHORUS LEVEL 3.9 MG/DL (2.5-4.9); POTASSIUM SERUM 3.8 MEQ/L (3.5-5.1); SODIUM LEVEL 140 MEQ/L (136-145); TOTAL PROTEIN 6.6 GM/DL (6.4-8.2); TRIGLYCERIDES LEVEL 67 MG/DL (<150)
--- NOTE | 2020-06-15 08:38 | REP ---
INDICATION: pleural effusion COMPARISON: 06/14/2020 TECHNIQUE: PA and lateral. FINDINGS: Moderate left-sided pleural effusion and associated pleuroparenchymal changes again noted and essentially stable. Bilateral aerated lung pal[place] are clear. No new acute process.. IMPRESSION: Moderate left pleural effusion and pleuroparenchymal changes remain essentially stable <Electronically signed by Jason Johnson > 06/15/20 0803
[2020-06-15] MEDS: SPIRONOLACTONE 50 MG TAB PO SCH (09:25)
[2020-06-15] MEDS: POTASSIUM CHLORIDE 10 MEQ SR TABLET PO SCH (09:25)
[2020-06-15] MEDS: DOCUSATE SODIUM 100MG CAPSULE PO SCH (09:26)
[2020-06-15] MEDS: PANTOPRAZOLE 40MG TAB (PROTONIX) PO SCH (09:26)
[2020-06-15] MEDS: HEPARIN SOD (PORCINE) 5000UNITS/ML 1ML VIAL/SYRINGE SC SCH (09:27)
--- NOTE | 2020-06-15 12:29 | IPN ---
PROGRESS NOTE DATE: 06/14/2020 Ms. Dong is feeling better today. She is ambulating and walking around. She states that her legs feel better. She is breathing well. Her vital signs show maximum temperature of 98.1 with a heart rate that ranges between 73-90 in a sinus rhythm, respiratory rate of 18-20 without the use of accessory muscles, who is 91%-99% saturated on room air and whose blood pressure is ranging is ranging between 120/56 to 92/51. Her intake and output for the past 24 hours has been recorded as 1070 in and 5005 out for a negativity of nearly 4000 mL. She has put out 160 mL from the chest tube, and there is no air leak. Weight today is 91.3 kg compared to 93.3 kg yesterday. On physical examination, she has equal breath sounds on either side. She has scattered rhonchi that clear with coughing. Percussion note is full to the diaphragm. Cardiac exam shows the 2/6 systolic ejection murmur at the right upper sternal border and left lower sternal border. I cannot feel her point of maximal impulse (PMI). S1 and S2 are normal. Abdomen is soft and nontender. Bowel sounds are positive. There is no hepatomegaly. No costovertebral angle (CVA) tenderness. Extremities show 2-3+ pretibial edema but no calf tenderness. There is no differential swelling of the upper extremities. Skin is warm, dry, and perfused without cyanosis or mottling, including that of the nailbeds and knees. Neck is supple. There is no jugular venous distention. No subcutaneous emphysema. Trachea is midline. Mouth shows the mucous membranes to be pink and moist. Lips and commissures without lesions. There is no thrush. Eyes show her pupils to be equal and reactive. Extraocular muscles intact. Sclerae anicteric. Neurologic shows II-XII intact. Normal gross motor, gross sensation intact. Gait is also intact. Psychiatric shows her to be awake, alert, and oriented times three with appropriate mood and affect and conversational. Her white count today is 3.5 with a hemoglobin and hematocrit of 8.5 and 26.7, essentially unchanged from yesterday. Platelet count is 97 and stable. There is no differential. Her chemistries show normal electrolytes with a BUN and creatinine of 13 and 1.09, a glucose of 85, and a calcium of 8.1 with a corresponding albumin of 2.2. AST and ALT are 62 and 28, respectively. Her chest x-ray today shows that the pleural space between the nonexpanded lung and chest wall is now filling with fluid. I perfectly expect that. Otherwise, the lung is fully expanded to the chest wall, and I see no infiltrates. IMPRESSION: 1. Liver cirrhosis. 2. Ascites. 3. Exudative pleural effusion. 4. Status post hepatitis C, probable cause of liver cirrhosis and by history not completely treated in the past. 5. Left lower lobe compression with lung entrapment. 6. Jaundice secondary to cirrhosis, improved. 7. Hyperbilirubinemia, improving. 8. Anemia of unknown cause. PLAN AND DISCUSSION: It looks as though her cirrhosis is being brought under control with great diuresis. We will follow her chest x-ray over the next day or so to see if the lung completely fills with fluid. I am hoping that with control of diuresis, the fluid will be restricted to the space caused by the entrapped lung and will go no further. I have spoken to the medical physicians and have encouraged them to continue the aggressive diuresis. If we can keep her cirrhosis under control, I would see no reason why she could not be discharged either in the morning or the day after and certainly before New Year's. WILLIAM
[2020-06-15] MEDS ORDERED: PEG1POW PO (12:50)
[2020-06-15] MEDS ORDERED: ACET1TAB55 PO (12:50)
[2020-06-15] MEDS ORDERED: ALDA50TA2 PO (12:50)
[2020-06-15] MEDS ORDERED: LASI40TA9 PO (12:50)
[2020-06-15] MEDS ORDERED: DOK1CAP7 PO (12:50)
[2020-06-15] MEDS ORDERED: POTA10TA17 PO (12:50)
--- NOTE | 2020-06-15 14:08 | IPN ---
PROGRESS NOTE DATE: 06/15/2020 Ms. Dong is doing quite well today. Her legs are feeling much better, and the swelling is going down. She is breathing well. There is no cough. Her vital signs show a maximum temperature of 98.2 with a heart rate that ranges between 81-88. Respiratory rate is 16-19 without the use of accessory muscles. She is 91%-95% saturated on room air. Blood pressure is ranging between 114/64 to 108/60. Her intake and output for the past 24 hours has been recorded as 700 in and 3550 out, for a negative of 2700 mL. She weighs 86.7 kg today to 91.3 kg yesterday. On physical examination she has equal breath sounds on either side. Percussion note is full to the diaphragm. Cardiac exam shows the same 2/6 ejection murmur at the right upper sternal border and left lower sternal border. I cannot feel her point of maximal impulse (PMI). S1 and S2 are normal. Abdomen is soft and nontender. Bowel sounds are positive. There is no hepatomegaly. No costovertebral angle (CVA) tenderness. Extremities show 2+ pretibial edema but no calf tenderness. Her thighs are much less edematous. There is no differential swelling of the upper extremities. Skin is warm, dry, and perfused without cyanosis or mottling, including that of the nailbeds and knees. Neck is supple. There is no jugular venous distention. No subcutaneous emphysema. Trachea is midline. Mouth shows the mucous membranes to be pink and moist. Lips and commissures without lesions. No thrush. Eyes show her pupils to be equal and reactive. Extraocular muscles intact. Sclerae anicteric. Neurologic shows II-XII intact. Normal gross motor, gross sensation intact. Gait is not tested. Psychiatric shows her to be awake, alert, and oriented times three with appropriate mood and affect and conversational. Her white count today is 4.5 with a hemoglobin and hematocrit of 9.0 and 28.7, respectively. Platelet count is 102 and stable. Chemistries today show normal electrolytes with potassium of 3.8. BUN and creatinine are 12 and 1.0 with a glucose of 103 and a calcium of 8.7 with a corresponding albumin of 2.3. AST and ALT are 64 and 32, respectively, and total bilirubin is slightly up to 2.0. Her chest x-ray today shows a little bit more filling of the space in the left lower hemithorax. I see no other infiltrates per se. IMPRESSION: 1. Liver cirrhosis. 2. Ascites. 3. Exudative pleural effusion. 4. Status post hepatitis C, probable cause of liver cirrhosis and by history not completely healed in the past. 5. Left lower lobe compression with lung entrapment. 6. Jaundice secondary to cirrhosis, improved. 7. Hyperbilirubinemia, improving. 8. Anemia of unknown cause. PLAN AND DISCUSSION: I am very pleased that the diuresis is going well. Hopefully her weight reflects the aggressive diuresis. Certainly her legs are a lot less swollen today. Her chest x-ray shows a little bit more fluid in the left costophrenic angle, but I suspect that is secondary to the space completely filling from the lung entrapment. It is my recommendation that she be discharged home on the continued aggressive diuresis. I will see her back in the office in 10 days with a chest x-ray. I have indicated to her that her cirrhosis management should be done by a real internal medicine physician. There are a number of internal medicine physicians at the [facility], where she goes. She is to be followed up by Dr. Milligan to complete her treatment for her hepatitis C, and she will be seen by gastroenterology for gastrointestinal (GI) workup along with referral to a transplant center for consideration of a liver transplant. She is early enough in her cirrhosis that we have the luxury of time to get her on a transplant list and for a full workup. Psychologically and socially she is an excellent transplant candidate. With a creat of 1.0, a bilirubin of 2.0 and an INR of 1,.46, I calculate her MELD score to be 13. MTDD
[2020-06-15 15:11] LABS: HEPATITIS C QUANTITATION 1172150 IU/mL (.)
--- NOTE | 2020-06-15 21:37 | REP ---
INDICATION: pleural effusion COMPARISON: 06/11/2020 TECHNIQUE: PA and lateral. FINDINGS: Left-sided chest tube in stable position. Left-sided pleuroparenchymal changes with small residual basilar pneumothorax with adjacent pleural thickening again noted. Right hemithorax is clear. Mediastinum and cardiac silhouette are normal/stable. Skeletal structures are stable. IMPRESSION: No change from prior examination. <Electronically signed by Jason Johnson > 06/12/20 0815
--- NOTE | 2020-06-18 23:17 | DS.PDOC ---
Discharge Summary General Date of Admission Jun 03, 2020 at 22:36 Date of Discharge 06/15/20 Discharge Summary PROCEDURES PERFORMED DURING STAY: Left chest tube placement and removal. DISCHARGE DIAGNOSES: Parapneumonic Left hemorrhagic Pleural effusion s/p chest tube drainage. 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 Chronic Hepatitis C infection Cholestatic Jaundice Lactic acidosis. Left lower lobe compression with lung entrapment. Anemia COMPLICATIONS/CHIEF COMPLAINT: Abdominal Ascites, Pleural Effusion. HOSPITAL COURSE: Ms. Dong is a 44-year-old female with a history of liver cirrhosis likely secondary to hepatitis C who presented with complaints of persistent cough, and acute onset of abdominal swelling and bilateral lower extremity swelling after completing a course of doxycycline. She was found to have decompensated liver cirrhosis and left sided pleural effusion. Left hemorrhagic Pleural effusion with clots. Had resolved on 06/07/20 CT chest but is back again in next CXRs CT chest on 06/07/20: Near complete resolution to the left pleural effusion with small residual hydropneumothorax as well as possible chronic pleural thickening and mild passive atelectasis. Limited upper abdomen consistent with cirrhosis and portal hypertension including ascites. TPA in chest tube x 2 Has underlying entrapped lung. Fluid Cultures negative. Cytology and pathology negative for malignancy lots of inflammatory cells. Last CXR after discontinuation of Chest tube still showed persistent moderate left pleural effusion Follow up Dr Multani. Entrapped left lung. Dr Multani thinks the pleural effusion is long standing and caused inflammatory changes and entrapment of the lung. Left lower lobe pneumonia with parapneumonic hemorrhagic effusion CT chest on 06/05 with left lower lobe and lingular opacities. fluid culture was negative. Finished Zosyn seen By Dr Milligan. Decompensated liver cirrhosis with thrombocytopenia, portal hypertension, ascites and generalized anasarca. due to untreated Hepatitis C. 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 MELD Score today = 13 points referred to [facility] on discharge. Lasix and aldactone, 2 gm sodium diet, fluid restriction 1.8 liters. Hepatitis C Appreciate Dr Milligan's help. Dr Milligan will see her in office on 06/21/20 Cholestatic Jaundice due to cirrhosis of liver with congestion. improving. Lactic acidosis now resolved. DISCHARGE MEDICATIONS: Please see below. ALLERGIES: Please see below. PHYSICAL EXAMINATION ON DISCHARGE: VITAL SIGNS: Please see below. GEN: well-nourished / well developed HEENT: lips acyanotic /mucus membranes moist and pink CVS: RRR/NMRG LUNGS: diminished breath sounds on the left base with crackles. ABDOMEN: Parietal edema, soft, nontender, normal bowel sounds, ascites present. Extremities ; Bilateral pedal edema 3+ MSK/EXTREMITIES: NCAT / range of motion intact in all 4 extremities NEURO: CN 2-12 are grossly intact / speech is not dysarthric PSYCH: alert and oriented to person place and time/ able to understand and follow all commands LABORATORY DATA: Please see below. ACTIVITY: [As tolerated]. DIET: 2 gm sodium with 1.8 liter fluid restriction. DISPOSITION: Home, Self-Care. DISCHARGE INSTRUCTIONS: Dr Multani in [address] Milligan on 06/21/[address] Fan. His office with call. PMD in 1 week. DISCHARGE CONDITION: [Stable]. TIME SPENT ON DISCHARGE: 35 minutes. Vital Signs/I&Os Vital Signs Date Time Temp Pulse Resp B/P (MAP) Pulse Ox O2 Delivery O2 Flow Rate FiO2 06/15/20 16:00 97.9 78 16 111/55 (73) 94 Room Air 06/13/20 12:00 1.0 Microbiology Microbiology 06/12/20 Stool Occult Blood (VIDAL) - Final, Complete Discharge Medications Scheduled Docusate Sodium (Dok) 100 Mg Capsule, 100 MG PO BID Furosemide (Lasix) 40 Mg Tablet, 40 MG PO BID Potassium Chloride (Potassium Chloride) 10 Meq Tab.er.prt, 1 TAB PO BID Spironolactone (Aldactone) 50 Mg Tablet, 50 MG PO QAM Scheduled PRN Acetaminophen (Acetaminophen) 325 Mg Tablet, 650 MG PO Q6HP PRN for PAIN OR TEMP > 101 Polyethylene Glycol 3350 (Polyethylene Glycol 3350) 17 Gm Powd.pack, 1 PKT PO DAILYPRN PRN for CONSTIPATION Allergies Coded Allergies: No Known Allergies (Verified , 02/01/07) BETSY VERGARA MD Jun 18, 2020 23:17
== END 2020-06-15 16:45 | disposition home or self-care (01) ==
LOC: M ED 16:35 → M ED INP 22:36 → M PCU 06-04 06:33
PROVIDERS: ADMIT Internal Medicine; ATTEND Internal Medicine Nephrology
PROC: 0W9B30Z Drainage of Left Pleural Cavity with Drainage Device, Percutaneous Approach (ICD-10-PCS; principal; 2020-06-04)
PROC: 3E0L3GC Introduction of Other Therapeutic Substance into Pleural Cavity, Percutaneous Approach (ICD-10-PCS; 2020-06-06)
PROC: 3E0L3GC Introduction of Other Therapeutic Substance into Pleural Cavity, Percutaneous Approach (ICD-10-PCS; 2020-06-09)
DX: K74.60 Unspecified cirrhosis of liver (principal); D61.818 Other pancytopenia; J18.9 Pneumonia, unspecified organism; J90 Pleural effusion, not elsewhere classified; E87.2 Acidosis; K76.6 Portal hypertension; R18.8 Other ascites; D69.59 Other secondary thrombocytopenia; E88.09 Other disorders of plasma-protein metabolism, not elsewhere classified; I85.00 Esophageal varices without bleeding; B18.2 Chronic viral hepatitis C; K31.89 Other diseases of stomach and duodenum; I86.4 Gastric varices; E80.6 Other disorders of bilirubin metabolism; Z79.899 Other long term (current) drug therapy; Z87.891 Personal history of nicotine dependence

== ENCOUNTER → 2020-07-08 | Outpatient (CLI) | payer OTHER ==
[~2020-07-08] MED LIST changes: +ACET1TAB55 PO; +ALDA50TA2 PO; +DOK1CAP7 PO; +IBUP200T45 PO; +LASI40TA9 PO; +PEG1POW PO; +POTA10TA17 PO
--- NOTE | 2020-07-08 09:26 | REPPI ---
INDICATION: J90 PLEURAL EFFUSION COMPARISON: 06/15/2020 TECHNIQUE: PA and lateral. FINDINGS: The mediastinum and cardiac silhouette are normal. Small to moderate residual left pleural effusion is appreciated and decreased from prior examination. Aerated lung palomino are clear. No pneumothorax. Mediastinum and cardiac silhouette normal. IMPRESSION: Small/moderate residual left pleural effusion. <Electronically signed by Jason Johnson > 07/08/20 0922
== END ==
LOC: M PLAIMG 08:34
PROVIDERS: ATTEND Thoracic Surgery (Cardiothoracic Vascular Surgery)
DX: J90 Pleural effusion, not elsewhere classified (principal)

== ENCOUNTER → 2020-07-12 | Outpatient (REF) | payer OTHER ==
[2020-07-12 15:47] LABS: BASO % 0.4 % (0.0-1.0); EOS # 0.3 10^3/uL (0.0-0.5); EOS % 5.9 % (0.0-3.0); HEMATOCRIT 32.4 % (36.0-47.0); HEMOGLOBIN 10.8 g/dl (12.0-15.5); LYMPH % 20.3 % (24.0-44.0); MEAN CORPUSCULAR HEMOGLOBIN 32.2 pg (27.0-33.0); MEAN CORPUSCULAR HGB CONC 33.3 g/dl (32.0-36.5); MEAN CORPUSCULAR VOLUME 96.7 fl (80.0-96.0); MONO # 0.4 10^3/uL (0.0-0.8); NEUTROPHILS # 3.1 10^3/uL (1.5-8.5); NEUTROPHILS % 65.2 % (36.0-66.0); RED BLOOD COUNT 3.35 10^6/uL (4.00-5.40); WHITE BLOOD COUNT 4.8 10^3/uL (4.0-10.0)
[2020-07-12 16:03] LABS: PLATELET COUNT, AUTOMATED 90 10^3/uL (150-450)
[2020-07-12 16:17] LABS: ALBUMIN 3.1 GM/DL (3.2-5.2); ALT/SGPT 25 U/L (12-78); BILIRUBIN,TOTAL 4.9 MG/DL (0.2-1.0); BLOOD UREA NITROGEN 22 MG/DL (7-18); CALCIUM LEVEL 9.6 MG/DL (8.5-10.1); CARBON DIOXIDE LEVEL 29 MEQ/L (21-32); CHLORIDE LEVEL 99 MEQ/L (98-107); CREATININE FOR GFR 1.05 MG/DL (0.55-1.30); GLOMERULAR FILTRATION RATE > 60.0 (>58); GLUCOSE, FASTING 97 MG/DL (70-100); POTASSIUM SERUM 4.2 MEQ/L (3.5-5.1); SODIUM LEVEL 136 MEQ/L (136-145); TOTAL PROTEIN 8.1 GM/DL (6.4-8.2)
[2020-07-14 23:07] LABS: HEPATITIS C QUANTITATION 70 IU/mL (.)
== END ==
LOC: M SFHCPLAZ 13:12
PROVIDERS: ATTEND Internal Medicine Infectious Disease
DX: B18.2 Chronic viral hepatitis C (principal)

== ENCOUNTER → 2020-08-12 | Outpatient (REF) | payer OTHER ==
[~2020-08-12] MED LIST changes: -PEG1POW PO; +POLY17PO18 PO
[2020-08-12 14:41] LABS: BASO % 0.6 % (0.0-1.0); EOS # 0.1 10^3/uL (0.0-0.5); EOS % 1.5 % (0.0-3.0); HEMATOCRIT 30.8 % (36.0-47.0); HEMOGLOBIN 9.8 g/dl (12.0-15.5); LYMPH # 0.9 10^3/uL (1.5-5.0); LYMPH % 18.8 % (24.0-44.0); MEAN CORPUSCULAR HEMOGLOBIN 32.9 pg (27.0-33.0); MEAN CORPUSCULAR HGB CONC 31.8 g/dl (32.0-36.5); MEAN CORPUSCULAR VOLUME 103.4 fl (80.0-96.0); MONO # 0.5 10^3/uL (0.0-0.8); MONO % 9.7 % (2.0-8.0); NEUTROPHILS # 3.2 10^3/uL (1.5-8.5); PLATELET COUNT, AUTOMATED 113 10^3/uL (150-450); RED BLOOD COUNT 2.98 10^6/uL (4.00-5.40); WHITE BLOOD COUNT 4.6 10^3/uL (4.0-10.0)
[2020-08-12 15:10] LABS: ALBUMIN 2.8 GM/DL (3.2-5.2); ALT/SGPT 26 U/L (12-78); BILIRUBIN,TOTAL 3.9 MG/DL (0.2-1.0); BLOOD UREA NITROGEN 17 MG/DL (7-18); CALCIUM LEVEL 8.9 MG/DL (8.5-10.1); CARBON DIOXIDE LEVEL 28 MEQ/L (21-32); CHLORIDE LEVEL 106 MEQ/L (98-107); CREATININE FOR GFR 0.75 MG/DL (0.55-1.30); GLOMERULAR FILTRATION RATE > 60.0 (>58); GLUCOSE, FASTING 97 MG/DL (70-100); POTASSIUM SERUM 4.3 MEQ/L (3.5-5.1); SODIUM LEVEL 139 MEQ/L (136-145); TOTAL PROTEIN 7.5 GM/DL (6.4-8.2)
[2020-08-17 10:08] LABS: HEPATITIS C QUANTITATION HCV Not Detected IU/mL (.)
== END ==
LOC: M SFHCPLAZ 13:22
PROVIDERS: ATTEND Internal Medicine Infectious Disease
DX: B18.2 Chronic viral hepatitis C (principal)

== ENCOUNTER → 2020-08-18 | Outpatient (CLI) | payer OTHER ==
[2020-08-18 16:25] LABS: BASO % 0.4 % (0.0-1.0); EOS # 0.1 10^3/uL (0.0-0.5); EOS % 2.2 % (0.0-3.0); HEMATOCRIT 30.5 % (36.0-47.0); HEMOGLOBIN 9.7 g/dl (12.0-15.5); LYMPH # 0.9 10^3/uL (1.5-5.0); LYMPH % 19.2 % (24.0-44.0); MEAN CORPUSCULAR HEMOGLOBIN 33.2 pg (27.0-33.0); MEAN CORPUSCULAR HGB CONC 31.8 g/dl (32.0-36.5); MEAN CORPUSCULAR VOLUME 104.5 fl (80.0-96.0); MONO # 0.5 10^3/uL (0.0-0.8); MONO % 10.4 % (2.0-8.0); NEUTROPHILS # 3.1 10^3/uL (1.5-8.5); NEUTROPHILS % 67.6 % (36.0-66.0); PLATELET COUNT, AUTOMATED 106 10^3/uL (150-450); RED BLOOD COUNT 2.92 10^6/uL (4.00-5.40); WHITE BLOOD COUNT 4.5 10^3/uL (4.0-10.0)
[2020-08-18 16:33] LABS: INR 1.35
[2020-08-18 16:46] LABS: ALBUMIN 2.8 GM/DL (3.2-5.2); ALT/SGPT 26 U/L (12-78); BILIRUBIN,DIRECT 1.1 MG/DL (0.0-0.2); BLOOD UREA NITROGEN 17 MG/DL (7-18); CREATININE FOR GFR 0.91 MG/DL (0.55-1.30); GLOMERULAR FILTRATION RATE > 60.0 (>58); IRON (FE) 107 UG/DL (50-170); TOTAL IRON BINDING CAPACITY 261 UG/DL (250-450); TOTAL PROTEIN 7.5 GM/DL (6.4-8.2)
== END ==
LOC: M LAB 15:19
PROVIDERS: ATTEND Internal Medicine Gastroenterology
DX: B18.2 Chronic viral hepatitis C (principal)

== ENCOUNTER → 2020-09-23 | Outpatient (REF) | payer OTHER ==
[2020-09-23 15:46] LABS: BASO % 0.5 % (0.0-1.0); EOS # 0.1 10^3/uL (0.0-0.5); EOS % 2.6 % (0.0-3.0); HEMOGLOBIN 10.1 g/dl (12.0-15.5); LYMPH # 0.8 10^3/uL (1.5-5.0); LYMPH % 19.5 % (24.0-44.0); MEAN CORPUSCULAR HEMOGLOBIN 32.8 pg (27.0-33.0); MEAN CORPUSCULAR HGB CONC 31.6 g/dl (32.0-36.5); MEAN CORPUSCULAR VOLUME 103.9 fl (80.0-96.0); MONO # 0.5 10^3/uL (0.0-0.8); MONO % 11.1 % (2.0-8.0); NEUTROPHILS # 2.8 10^3/uL (1.5-8.5); NEUTROPHILS % 66.1 % (36.0-66.0); PLATELET COUNT, AUTOMATED 105 10^3/uL (150-450); RED BLOOD COUNT 3.08 10^6/uL (4.00-5.40); WHITE BLOOD COUNT 4.3 10^3/uL (4.0-10.0)
[2020-09-23 16:15] LABS: ALBUMIN 2.6 GM/DL (3.2-5.2); ALT/SGPT 20 U/L (12-78); BILIRUBIN,TOTAL 3.4 MG/DL (0.2-1.0); BLOOD UREA NITROGEN 12 MG/DL (7-18); CALCIUM LEVEL 8.7 MG/DL (8.5-10.1); CARBON DIOXIDE LEVEL 29 MEQ/L (21-32); CHLORIDE LEVEL 106 MEQ/L (98-107); CREATININE FOR GFR 0.82 MG/DL (0.55-1.30); GLOMERULAR FILTRATION RATE > 60.0 (>58); GLUCOSE, FASTING 93 MG/DL (70-100); POTASSIUM SERUM 4.2 MEQ/L (3.5-5.1); SODIUM LEVEL 139 MEQ/L (136-145); TOTAL PROTEIN 7.1 GM/DL (6.4-8.2)
[2020-09-25 14:11] LABS: HEPATITIS C QUANTITATION HCV Not Detected IU/mL (.)
== END ==
LOC: M SFHCPLAZ 13:53
PROVIDERS: ATTEND Internal Medicine Infectious Disease
DX: B18.2 Chronic viral hepatitis C (principal); K74.69 Other cirrhosis of liver

== ENCOUNTER → 2020-10-07 | Outpatient (CLI) | payer OTHER ==
[~2020-10-07] MED LIST changes: +FURO40TA2 PO; +KLOR10TA76 PO; +ONDA-83 PO; +SENN1TAB96 PO
== END ==
LOC: M LABSMTC 10:46
PROVIDERS: ATTEND Anesthesiology
DX: Z01.818 Encounter for other preprocedural examination (principal); Z20.828 Contact with and (suspected) exposure to other viral communicable diseases

== ENCOUNTER → 2020-10-11 | Outpatient (REF) | payer OTHER ==
[2020-10-11 13:25] LABS: BASO % 0.6 % (0.0-1.0); EOS # 0.1 10^3/uL (0.0-0.5); EOS % 2.5 % (0.0-3.0); HEMATOCRIT 34.6 % (36.0-47.0); HEMOGLOBIN 11.2 g/dl (12.0-15.5); LYMPH # 1.3 10^3/uL (1.5-5.0); LYMPH % 26.4 % (24.0-44.0); MEAN CORPUSCULAR HEMOGLOBIN 31.9 pg (27.0-33.0); MEAN CORPUSCULAR HGB CONC 32.4 g/dl (32.0-36.5); MEAN CORPUSCULAR VOLUME 98.6 fl (80.0-96.0); MONO # 0.7 10^3/uL (0.0-0.8); MONO % 14.7 % (2.0-8.0); NEUTROPHILS # 2.7 10^3/uL (1.5-8.5); NEUTROPHILS % 55.6 % (36.0-66.0); RED BLOOD COUNT 3.51 10^6/uL (4.00-5.40); WHITE BLOOD COUNT 4.8 10^3/uL (4.0-10.0)
[2020-10-11 13:52] LABS: ALBUMIN 2.6 GM/DL (3.2-5.2); ALT/SGPT 21 U/L (12-78); BILIRUBIN,TOTAL 1.6 MG/DL (0.2-1.0); BLOOD UREA NITROGEN 13 MG/DL (7-18); CALCIUM LEVEL 8.4 MG/DL (8.5-10.1); CARBON DIOXIDE LEVEL 29 MEQ/L (21-32); CHLORIDE LEVEL 105 MEQ/L (98-107); CHOLESTEROL LEVEL 135 MG/DL (<200); CREATININE FOR GFR 0.63 MG/DL (0.55-1.30); GLOMERULAR FILTRATION RATE > 60.0 (>58); GLUCOSE, FASTING 88 MG/DL (70-100); HDL CHOLESTEROL 60 MG/DL (>40); LDL CHOLESTEROL 59 MG/DL (<100); NON-HDL-C 75 MG/DL; POTASSIUM SERUM 3.6 MEQ/L (3.5-5.1); SODIUM LEVEL 139 MEQ/L (136-145); TRIGLYCERIDES LEVEL 79 MG/DL (<150)
[2020-10-11 14:07] LABS: PLATELET COUNT, AUTOMATED 98 10^3/uL (150-450)
== END ==
LOC: M LAB REF 12:07
PROVIDERS: ATTEND Nurse Practitioner Family
DX: K74.60 Unspecified cirrhosis of liver (principal)

== ENCOUNTER → 2020-12-28 | Outpatient (CLI) | payer OTHER ==
[~2020-12-28] MED LIST changes: +DOCU100C16 PO; +DOK1CAP4 PO; -DOK1CAP7 PO; +DOXY-443 PO; -DOXY100C37 PO; -IBUP200T45 PO; +IBUP200T46 PO; -KLOR10TA76 PO; +OMEP-173; -OMEP-218; +POTA-136 PO; +ZOFR4TAB16 PO
[2020-12-28 15:37] LABS: BASO % 0.5 % (0.0-1.0); EOS # 0.1 10^3/uL (0.0-0.5); EOS % 2.3 % (0.0-3.0); HEMATOCRIT 37.9 % (36.0-47.0); HEMOGLOBIN 12.7 g/dl (12.0-15.5); LYMPH % 26.5 % (24.0-44.0); MEAN CORPUSCULAR HEMOGLOBIN 30.7 pg (27.0-33.0); MEAN CORPUSCULAR HGB CONC 33.5 g/dl (32.0-36.5); MEAN CORPUSCULAR VOLUME 91.5 fl (80.0-96.0); MONO # 0.5 10^3/uL (0.0-0.8); MONO % 11.5 % (2.0-8.0); NEUTROPHILS # 2.3 10^3/uL (1.5-8.5); NEUTROPHILS % 58.9 % (36.0-66.0); PLATELET COUNT, AUTOMATED 105 10^3/uL (150-450); RED BLOOD COUNT 4.14 10^6/uL (4.00-5.40); WHITE BLOOD COUNT 3.9 10^3/uL (4.0-10.0)
[2020-12-28 15:45] LABS: INR 1.31; PROTHROMBIN TIME 16.6 SECONDS (12.5-14.3)
[2020-12-28 16:01] LABS: ALT/SGPT 26 U/L (12-78); BLOOD UREA NITROGEN 12 MG/DL (7-18); CALCIUM LEVEL 8.4 MG/DL (8.5-10.1); CARBON DIOXIDE LEVEL 28 MEQ/L (21-32); CHLORIDE LEVEL 105 MEQ/L (98-107); CREATININE FOR GFR 0.96 MG/DL (0.55-1.30); GLOMERULAR FILTRATION RATE > 60.0 (>58); GLUCOSE, FASTING 119 MG/DL (70-100); IRON (FE) 166 UG/DL (50-170); PERCENT SATURATION 61.5 % (13.2-45.0); POTASSIUM SERUM 4.7 MEQ/L (3.5-5.1); SODIUM LEVEL 137 MEQ/L (136-145); TOTAL IRON BINDING CAPACITY 270 UG/DL (250-450); TOTAL PROTEIN 7.5 GM/DL (6.4-8.2)
[2020-12-28 16:08] LABS: FOLATE 6.2 NG/ML; VITAMIN B12 LEVEL 1712 PG/ML
[2020-12-30 18:11] LABS: HEPATITIS C QUANTITATION HCV Not Detected IU/mL (.)
== END ==
LOC: M PLALAB 12:41
PROVIDERS: ATTEND Internal Medicine Infectious Disease
DX: D64.9 Anemia, unspecified (principal); B18.2 Chronic viral hepatitis C; Z13.1 Encounter for screening for diabetes mellitus

== ENCOUNTER → 2021-01-01 | Outpatient (CLI) | payer OTHER ==
[~2021-01-01] MED LIST changes: -DOCU100C16 PO; -DOK1CAP4 PO; +DOK1CAP7 PO; -DOXY-443 PO; +DOXY1CAP62 PO; +IBUP200T45 PO; -IBUP200T46 PO; +KLOR10TA76 PO; -OMEP-173; +OMEP-218; -POTA-136 PO; -ZOFR4TAB16 PO
== END ==
LOC: M LABSMTC 10:40
PROVIDERS: ATTEND Anesthesiology
DX: Z01.812 Encounter for preprocedural laboratory examination (principal); Z20.822 Contact with and (suspected) exposure to COVID-19

== ENCOUNTER 2021-01-06 10:34 | Day surgery (SDC) | payer OTHER ==
[~2021-01-06] VITALS: Ht 165.1 cm; Wt 75.7 kg
[~2021-01-06 10:34] MED LIST changes: +NS 1,000 ML IV ONE
[2021-01-06] MEDS ORDERED: LIDOCAINE 2% 100MG/5ML SDV (FOR ANES.) As Ordered ONE (12:19)
[2021-01-06] MEDS ORDERED: fentaNYL 100 MCG/2 ML INJECTION (J3010) As Ordered ONE (12:19)
[2021-01-06] MEDS ORDERED: propofoL 200 MG/20 ML VIAL As Ordered ONE ×2 (12:19→12:51)
--- NOTE | 2021-01-06 12:56 | ROOR ---
Patient Name: Chantel Dong Procedure Date: 01/06/2021 12:31 PM Date of : 1975 Age: 45 Room: [facility] Gender: Female Note Status: Finalized Procedure: Upper GI endoscopy Indications: Acute post hemorrhagic anemia, Iron deficiency anemia, Cirrhosis rule out esophageal varices Providers: Marco Dugan MD Referring MD: Charity Delarosa NP Requesting Provider: Medicines: Monitored Anesthesia Care Complications: No immediate complications. Procedure: Pre-Anesthesia Assessment: - The heart rate, respiratory rate, oxygen saturations, blood pressure, adequacy of pulmonary ventilation, and response to care were monitored throughout the procedure. The Endoscope was introduced through the mouth, and advanced to the second part of duodenum. The upper GI endoscopy was accomplished without difficulty. The patient tolerated the procedure well. Findings: Grade I, grade II varices were found in the lower third of the esophagus. One band was successfully placed with complete eradication, resulting in deflation of varices. The entire examined stomach was normal. The examined duodenum was normal. Biopsies for histology were taken with a cold forceps for evaluation of celiac disease. Impression: - Grade I and grade II esophageal varices. Completely eradicated. Banded. - Normal stomach. - Normal examined duodenum. Biopsied. Recommendation: - Repeat upper endoscopy in 1 month for retreatment. - Start/continue a Non-selective Beta Marianne such as Propranolol or Nadolol, titrate to heart rate. Procedure Code(s): --- Professional --- 09375, Esophagogastroduodenoscopy, flexible, transoral; with band ligation of esophageal/gastric varices 26258, Esophagogastroduodenoscopy, flexible, transoral; with biopsy, single or multiple Diagnosis Code(s): --- Professional --- K74.60, Unspecified cirrhosis of liver I85.10, Secondary esophageal varices without bleeding D62, Acute posthemorrhagic anemia D50.9, Iron deficiency anemia, unspecified CPT copyright 2019 [employer]. All rights reserved. The codes documented in this report are preliminary and upon layout man review may be revised to meet current compliance requirements. Marco Dugan MD Marco Dugan MD 01/06/2021 12:55:59 PM Electronically signed by Marco Dugan MD Number of Addenda: 0 Note Initiated On: 01/06/2021 12:31 PM Estimated Blood Loss: Estimated blood loss: none.
--- NOTE | 2021-01-06 13:20 | ROOR ---
Patient Name: Chantel Dong Procedure Date: 01/06/2021 12:32 PM Date of : 1975 Age: 45 Room: [facility] Gender: Female Note Status: Finalized Procedure: Colonoscopy Indications: Iron deficiency anemia Providers: Marco Dugan MD Referring MD: Charity Delarosa NP Requesting Provider: Medicines: Monitored Anesthesia Care Complications: No immediate complications. Procedure: Pre-Anesthesia Assessment: - The heart rate, respiratory rate, oxygen saturations, blood pressure, adequacy of pulmonary ventilation, and response to care were monitored throughout the procedure. The Colonoscope was introduced through the anus and advanced to 10 cm into the ileum. The colonoscopy was performed without difficulty. The patient tolerated the procedure well. The quality of the bowel preparation was good. Findings: The perianal and digital rectal examinations were normal. Mild inflammation characterized by erythema was found in the distal rectum. Biopsies were taken with a cold forceps for histology. The exam was otherwise normal throughout the examined colon. The terminal ileum appeared normal. Impression: - Mild proctitis. Biopsied. - The colon was otherwise normal. - The examined portion of the ileum was normal. Recommendation: - Use fiber, for example Citrucel, Fibercon, Konsyl or Metamucil. - Await pathology results. Procedure Code(s): --- Professional --- 84769, Colonoscopy, flexible; with biopsy, single or multiple Diagnosis Code(s): --- Professional --- D50.9, Iron deficiency anemia, unspecified K62.89, Other specified diseases of anus and rectum CPT copyright 2019 [employer]. All rights reserved. The codes documented in this report are preliminary and upon ibm mainframe systems programmer review may be revised to meet current compliance requirements. Marco Dugan MD Marco Dugan MD 01/06/2021 1:19:54 PM Electronically signed by Marco Dugan MD Number of Addenda: 0 Note Initiated On: 01/06/2021 12:32 PM Estimated Blood Loss: Estimated blood loss: none.
[2021-01-06 13:44] VITALS: BP 125/80
== END 2021-01-06 13:46 | disposition home or self-care (01) ==
LOC: M OPP 10:34
PROVIDERS: ATTEND Internal Medicine Gastroenterology
DX: D50.9 Iron deficiency anemia, unspecified (principal); K62.89 Other specified diseases of anus and rectum; K51.219 Ulcerative (chronic) proctitis with unspecified complications; K74.60 Unspecified cirrhosis of liver; I85.10 Secondary esophageal varices without bleeding; D62 Acute posthemorrhagic anemia; Z79.899 Other long term (current) drug therapy; Z88.5 Allergy status to narcotic agent; Z87.19 Personal history of other diseases of the digestive system; Z87.891 Personal history of nicotine dependence
CPT/HCPCS: 43239; 43244; 45380; 88305; J3010

== ENCOUNTER → 2021-02-24 | Outpatient (CLI) | payer OTHER ==
[~2021-02-24] MED LIST changes: +DOCU100C16 PO; +DOK1CAP4 PO; -DOK1CAP7 PO; -NS 1,000 ML IV ONE; +ZOFR4TAB16 PO
== END ==
LOC: M LABSMTC 10:52
PROVIDERS: ATTEND Anesthesiology
DX: Z01.812 Encounter for preprocedural laboratory examination (principal); Z20.822 Contact with and (suspected) exposure to COVID-19

== ENCOUNTER 2021-03-01 11:54 | Day surgery (SDC) | payer OTHER ==
[~2021-03-01] VITALS: Ht 165.1 cm; Wt 78.0 kg
[~2021-03-01 11:54] MED LIST changes: -KLOR10TA76 PO; +NS 1,000 ML IV ONE; +POTA-136 PO
[2021-03-01] MEDS ORDERED: LIDOCAINE 2% 100MG/5ML SDV (FOR ANES.) As Ordered ONE (13:01)
[2021-03-01] MEDS ORDERED: propofoL 200 MG/20 ML VIAL As Ordered ONE (13:01)
[2021-03-01] MEDS ORDERED: fentaNYL 100 MCG/2 ML INJECTION (J3010) As Ordered ONE (13:58)
[2021-03-01] MEDS ORDERED: ONDANSETRON 4MG/2ML VIAL As Ordered ONE (14:08)
--- NOTE | 2021-03-01 14:24 | ROOR ---
Patient Name: Chantel Dong Procedure Date: 03/01/2021 2:09 PM Date of : 1975 Age: 45 Room: [facility] Gender: Female Note Status: Finalized Procedure: Upper GI endoscopy Indications: Cirrhosis with suspected esophageal varices, Esophageal varices s/p primary prevention/Banding (01/06/21), Follow-up of esophageal varices Providers: Marco Dugan MD Referring MD: Charity Delarosa NP Requesting Provider: Medicines: Monitored Anesthesia Care Complications: No immediate complications. Procedure: Pre-Anesthesia Assessment: - The heart rate, respiratory rate, oxygen saturations, blood pressure, adequacy of pulmonary ventilation, and response to care were monitored throughout the procedure. The Endoscope was introduced through the mouth, and advanced to the second part of duodenum. The upper GI endoscopy was accomplished without difficulty. The patient tolerated the procedure well. Findings: Grade I varices were found in the lower third of the esophagus. They were small in size. (Varices are small today, primary prevention/eradication not indicated today) The exam of the esophagus was otherwise normal. The entire examined stomach was normal. The examined duodenum was normal. Impression: - Grade I (or less) esophageal varices. (Varices are small today, primary prevention/eradication not indicated today) - Normal stomach. - Normal examined duodenum. - No specimens collected. Recommendation: - Repeat upper endoscopy in 1 year for surveillance. Procedure Code(s): --- Professional --- 37674, Esophagogastroduodenoscopy, flexible, transoral; diagnostic, including collection of specimen(s) by brushing or washing, when performed (separate procedure) Diagnosis Code(s): --- Professional --- K74.60, Unspecified cirrhosis of liver I85.10, Secondary esophageal varices without bleeding CPT copyright 2019 [employer] [employer]. All rights reserved. The codes documented in this report are preliminary and upon school psychometrist review may be revised to meet current compliance requirements. Marco Dugan MD Marco Dugan MD 03/01/2021 2:23:41 PM Electronically signed by Marco Dugan MD Number of Addenda: 0 Note Initiated On: 03/01/2021 2:09 PM Estimated Blood Loss: Estimated blood loss: none.
[2021-03-01 14:44] VITALS: BP 121/59
== END 2021-03-01 14:45 | disposition home or self-care (01) ==
LOC: M OPP 11:54
PROVIDERS: ATTEND Internal Medicine Gastroenterology
DX: I85.10 Secondary esophageal varices without bleeding (principal); K74.60 Unspecified cirrhosis of liver; R12 Heartburn; Z79.899 Other long term (current) drug therapy; Z88.5 Allergy status to narcotic agent; Z87.891 Personal history of nicotine dependence
CPT/HCPCS: 43235; J2405; J3010

== ENCOUNTER → 2021-03-04 | Outpatient (REF) | payer OTHER ==
[~2021-03-04] MED LIST changes: -NS 1,000 ML IV ONE
[2021-03-04 16:46] LABS: APPEARANCE, URINE HAZY (CLEAR); BILIRUBIN, URINE AUTO 1+ (NEGATIVE); BLOOD, URINE BLOOD NEGATIVE (NEGATIVE); COLOR, URINE AMBER (YELLOW); GLUCOSE, URINE (UA) AUTO NEGATIVE (NEGATIVE); KETONE, URINE AUTO NEGATIVE (NEGATIVE); LEUKOCYTE ESTERASE, URINE AUTO TRACE (NEGATIVE); NITRITE, URINE AUTO NEGATIVE (NEGATIVE); PROTEIN, URINE AUTO NEGATIVE (NEGATIVE); SPECIFIC GRAVITY URINE AUTO 1.019 (1.002-1.035)
[2021-03-04 16:54] LABS: BACTERIA, URINE AUTO NEGATIVE (NEGATIVE); MUCUS, URINE SMALL (NEGATIVE); RBC, URINE AUTO 1 /HPF (0-3); SQUAMOUS EPITHELIAL CELL UR AU 5 /HPF (0-6); WBC, URINE AUTO 9 /HPF (0-3)
== END ==
LOC: M LAB REF 16:17
PROVIDERS: ATTEND Physician Assistant
DX: R30.0 Dysuria (principal)

== ENCOUNTER → 2021-03-18 | Outpatient (CLI) | payer OTHER ==
--- NOTE | 2021-03-18 12:56 | REPMRS ---
Patient History The patient states she has not had a clinical breast exam in over a year. Patient is postmenopausal. Family history of breast cancer at age 68 in mother, breast cancer at age 63 in maternal aunt, colorectal cancer under age 50 in maternal grandmother, prostate cancer at age 50 or over in paternal grandfather, breast cancer at age 35 in maternal cousin. Patient states no breast complaints today. Patient has signed MRS History Sheet. Digital Woman Screen Mammo: March 18, 2021 - Exam #: [id number] Bilateral CC and MLO view(s) were taken. Technologist: Kely Jim, Technologist FINDINGS: There are scattered fibroglandular densities. Screening. Digital screening (2D) mammography was performed bilaterally. Additionally, breast tomosynthesis (3D) mammography was perfomed bilaterally in the CC and MLO projections. Today's examination is the initial screening examination. By history, the patient has no complaints of a palpable breast abnormality or other significant breast complaints. The breasts are symmetric in size and shape. There are no masses. There is no internal architectural distortion. There are no suspicious microcalcific clusters. Skin thickening or nipple retraction is not present. IMPRESSION: BI-RADS Category 2- Benign Findings. There is no evidence of malignant alteration of the breasts. Followup examination recommended in one year. The Volpara volumetric breast density category is B, there are scattered areas of fibroglandular densities. This mammogram was read with the assistance of [employer],an FDA approved computer aided detection system for mammography. The lifetime Tyrer-Cuzick score is 16.5 % Negative x-ray reports should not delay surgical consultation if a dominant or clinically suspicious mass is present. Not all breast cancers can be identified by mammography. Therefore, we recommend that you continue to perform regular breast self-examination and physical examination and then promptly contact your physician of any concerns or changes. Adenosis and dense breasts may obscure an underlying neoplasm. Assessment: BI-RADS/ACR category 2 mammogram. Benign Findings. Recommendation Routine screening mammogram of both breasts in 1 year. Electronically Signed By: Sourav Quiroga DO 03/18/21 [id number]
== END ==
LOC: M WHC 11:18
PROVIDERS: ATTEND Nurse Practitioner Family
DX: Z12.31 Encounter for screening mammogram for malignant neoplasm of breast (principal); Z78.0 Asymptomatic menopausal state; Z80.3 Family history of malignant neoplasm of breast

== ENCOUNTER → 2021-04-20 | Outpatient (CLI) | payer OTHER ==
[~2021-04-20] MED LIST changes: +DOXY-443 PO; -DOXY1CAP62 PO; -IBUP200T45 PO; +IBUP200T46 PO
--- NOTE | 2021-04-20 11:58 | REP ---
INDICATION: CIRRHOSIS HEPATOMA SCREENING. COMPARISON: 07/07/2014. TECHNIQUE: Real-time sonographic evaluation of right upper quadrant performed. FINDINGS: The gallbladder demonstrates no evidence of intraluminal sludge or calculi, or pericholecystic fluid. Gallbladder wall is upper limits of normal at 4 mm. There is no intrahepatic or extrahepatic biliary dilatation, common bile duct measures 5 mm in maximum diameter. The liver appears cirrhotic, with coarsened, heterogeneous echotexture and irregular margins. No gross liver mass is seen. Visualized pancreas is grossly unremarkable, the tail is not well seen due to overlying bowel gas. The right kidney demonstrates no hydronephrosis, with a normal size of 10.7 cm in length. No free fluid is seen. IMPRESSION: Cirrhotic liver, no gross liver mass. <Electronically signed by Blake Otto > 04/20/21 2870
== END ==
LOC: M RAD 07:48
PROVIDERS: ATTEND Internal Medicine Gastroenterology
DX: K74.69 Other cirrhosis of liver (principal)

== ENCOUNTER → 2021-07-28 | Outpatient (CLI) | payer OTHER ==
[~2021-07-28] MED LIST changes: +OMEP-173; -OMEP-218
[2021-07-28 15:31] LABS: APPEARANCE, URINE HAZY (CLEAR); BACTERIA, URINE AUTO NEGATIVE (NEGATIVE); BILIRUBIN, URINE AUTO 1+ (NEGATIVE); BLOOD, URINE BLOOD NEGATIVE (NEGATIVE); COLOR, URINE AMBER (YELLOW); GLUCOSE, URINE (UA) AUTO NEGATIVE (NEGATIVE); KETONE, URINE AUTO TRACE mg/dL (NEGATIVE); LEUKOCYTE ESTERASE, URINE AUTO TRACE (NEGATIVE); MUCUS, URINE MODERATE (NEGATIVE); NITRITE, URINE AUTO NEGATIVE (NEGATIVE); PROTEIN, URINE AUTO 1+ mg/dL (NEGATIVE); RBC, URINE AUTO 1 /HPF (0-3); SPECIFIC GRAVITY URINE AUTO 1.026 (1.002-1.035); SQUAMOUS EPITHELIAL CELL UR AU 5 /HPF (0-6); WBC, URINE AUTO 6 /HPF (0-3)
[2021-07-28 15:33] LABS: BASO % 0.6 % (0.0-1.0); EOS # 0.4 10^3/uL (0.0-0.5); EOS % 7.2 % (0.0-3.0); HEMATOCRIT 37.5 % (36.0-47.0); HEMOGLOBIN 12.5 g/dl (12.0-15.5); LYMPH # 1.2 10^3/uL (1.5-5.0); LYMPH % 23.2 % (24.0-44.0); MEAN CORPUSCULAR HEMOGLOBIN 30.6 pg (27.0-33.0); MEAN CORPUSCULAR HGB CONC 33.3 g/dl (32.0-36.5); MEAN CORPUSCULAR VOLUME 91.7 fl (80.0-96.0); MONO # 0.4 10^3/uL (0.0-0.8); NEUTROPHILS # 3.3 10^3/uL (1.5-8.5); NEUTROPHILS % 61.8 % (36.0-66.0); PLATELET COUNT, AUTOMATED 115 10^3/uL (150-450); RED BLOOD COUNT 4.09 10^6/uL (4.00-5.40); WHITE BLOOD COUNT 5.3 10^3/uL (4.0-10.0)
[2021-07-28 15:42] LABS: INR 1.28; PROTHROMBIN TIME 16.4 SECONDS (12.7-14.5)
[2021-07-28 15:58] LABS: ALBUMIN 2.9 GM/DL (3.2-5.2); ALT/SGPT 26 U/L (12-78); BILIRUBIN,TOTAL 1.9 MG/DL (0.2-1.0); BLOOD UREA NITROGEN 16 MG/DL (7-18); CALCIUM LEVEL 8.8 MG/DL (8.5-10.1); CARBON DIOXIDE LEVEL 28 MEQ/L (21-32); CHLORIDE LEVEL 107 MEQ/L (98-107); CREATININE FOR GFR 0.76 MG/DL (0.55-1.30); GLOMERULAR FILTRATION RATE > 60.0 (>58); GLUCOSE, FASTING 81 MG/DL (70-100); POTASSIUM SERUM 4.1 MEQ/L (3.5-5.1); SODIUM LEVEL 139 MEQ/L (136-145); TOTAL PROTEIN 7.2 GM/DL (6.4-8.2)
[2021-07-30 19:08] LABS: HEPATITIS C QUANTITATION HCV Not Detected IU/mL (.)
== END ==
LOC: M PLALAB 12:46
PROVIDERS: ATTEND Internal Medicine Infectious Disease
DX: B18.2 Chronic viral hepatitis C (principal); D64.9 Anemia, unspecified; K74.69 Other cirrhosis of liver

== ENCOUNTER → 2021-08-24 | Outpatient (CLI) | payer OTHER | LOC: M RAD 08:26 | PROVIDERS: ATTEND Internal Medicine Infectious Disease | DX: B18.2 Chronic viral hepatitis C (principal); K74.69 Other cirrhosis of liver; M54.41 Lumbago with sciatica, right side; K80.20 Calculus of gallbladder without cholecystitis without obstruction; M47.816 Spondylosis without myelopathy or radiculopathy, lumbar region ==

== ENCOUNTER → 2021-12-28 | Outpatient (CLI) | payer OTHER ==
[2021-12-28 16:10] LABS: BASO % 0.4 % (0.0-1.0); EOS # 0.4 10^3/uL (0.0-0.5); EOS % 8.7 % (0.0-3.0); HEMATOCRIT 35.5 % (36.0-47.0); HEMOGLOBIN 12.5 g/dl (12.0-15.5); LYMPH # 1.1 10^3/uL (1.5-5.0); LYMPH % 24.3 % (24.0-44.0); MEAN CORPUSCULAR HEMOGLOBIN 31.8 pg (27.0-33.0); MEAN CORPUSCULAR HGB CONC 35.2 g/dl (32.0-36.5); MEAN CORPUSCULAR VOLUME 90.3 fl (80.0-96.0); MONO # 0.5 10^3/uL (0.0-0.8); MONO % 10.4 % (2.0-8.0); NEUTROPHILS # 2.6 10^3/uL (1.5-8.5); RED BLOOD COUNT 3.93 10^6/uL (4.00-5.40); WHITE BLOOD COUNT 4.7 10^3/uL (4.0-10.0)
[2021-12-28 16:31] LABS: ALBUMIN 2.9 GM/DL (3.2-5.2); ALT/SGPT 24 U/L (12-78); BILIRUBIN,TOTAL 2.2 MG/DL (0.2-1.0); BLOOD UREA NITROGEN 13 MG/DL (7-18); CALCIUM LEVEL 8.5 MG/DL (8.5-10.1); CARBON DIOXIDE LEVEL 28 MEQ/L (21-32); CHLORIDE LEVEL 106 MEQ/L (98-107); CREATININE FOR GFR 0.74 MG/DL (0.55-1.30); GLOMERULAR FILTRATION RATE > 60.0 (>58); GLUCOSE, FASTING 117 MG/DL (70-100); POTASSIUM SERUM 3.5 MEQ/L (3.5-5.1); SODIUM LEVEL 141 MEQ/L (136-145); TOTAL PROTEIN 6.9 GM/DL (6.4-8.2)
[2021-12-28 16:58] LABS: TOTAL 25(OH) VITAMIN D 12.8 NG/ML (30.0-100.0)
[2021-12-28 17:29] LABS: INR 1.41; PROTHROMBIN TIME 17.7 SECONDS (12.7-14.5)
[2021-12-28 17:31] LABS: PLATELET COUNT, AUTOMATED 86 10^3/uL (150-450)
[2021-12-28 17:38] LABS: HIV 1&2 SCREEN CENTAUR NEGATIVE (NEGATIVE)
[2021-12-28 21:59] LABS: HEMOGLOBIN A1c 4.4 %
== END ==
LOC: M WUC 13:01
PROVIDERS: ATTEND Physician Assistant
DX: R42 Dizziness and giddiness (principal); R63.1 Polydipsia; Z11.4 Encounter for screening for human immunodeficiency virus [HIV]; E55.9 Vitamin D deficiency, unspecified; K74.60 Unspecified cirrhosis of liver

== ENCOUNTER → 2022-02-08 | Outpatient (CLI) | payer OTHER ==
[~2022-02-08] MED LIST changes: +POTA-150 PO; -POTA10TA17 PO
[2022-02-08 12:36] LABS: BASO % 0.4 % (0.0-1.0); EOS # 0.3 10^3/uL (0.0-0.5); EOS % 5.2 % (0.0-3.0); HEMATOCRIT 37.3 % (36.0-47.0); HEMOGLOBIN 13.2 g/dl (12.0-15.5); MEAN CORPUSCULAR HEMOGLOBIN 31.5 pg (27.0-33.0); MEAN CORPUSCULAR HGB CONC 35.4 g/dl (32.0-36.5); MONO # 0.5 10^3/uL (0.0-0.8); NEUTROPHILS # 3.3 10^3/uL (1.5-8.5); NEUTROPHILS % 66.4 % (36.0-66.0); RED BLOOD COUNT 4.19 10^6/uL (4.00-5.40)
[2022-02-08 12:45] LABS: INR 1.32; PROTHROMBIN TIME 16.8 SECONDS (12.7-14.5)
[2022-02-08 12:46] LABS: PLATELET COUNT, AUTOMATED 95 10^3/uL (150-450)
[2022-02-08 13:31] LABS: ALT/SGPT 20 U/L (12-78); BILIRUBIN,TOTAL 2.8 MG/DL (0.2-1.0); BLOOD UREA NITROGEN 16 MG/DL (7-18); CARBON DIOXIDE LEVEL 25 MEQ/L (21-32); CHLORIDE LEVEL 105 MEQ/L (98-107); CREATININE FOR GFR 0.68 MG/DL (0.55-1.30); GLOMERULAR FILTRATION RATE > 60.0 (>58); GLUCOSE, FASTING 92 MG/DL (70-100); POTASSIUM SERUM 3.8 MEQ/L (3.5-5.1); SODIUM LEVEL 137 MEQ/L (136-145); TOTAL PROTEIN 7.2 GM/DL (6.4-8.2)
[2022-02-08 14:06] LABS: TOTAL 25(OH) VITAMIN D 17.7 NG/ML (30.0-100.0)
[2022-02-08 14:46] LABS: HIV 1&2 SCREEN CENTAUR NEGATIVE (NEGATIVE)
[2022-02-08 15:37] LABS: HEMOGLOBIN A1c 4.6 %
== END ==
LOC: M LAB 11:46
PROVIDERS: ATTEND Physician Assistant
DX: E87.6 Hypokalemia (principal); E55.9 Vitamin D deficiency, unspecified; K74.60 Unspecified cirrhosis of liver; R63.1 Polydipsia

== ENCOUNTER → 2022-03-29 | Outpatient (CLI) | payer OTHER | LOC: M WHC 08:51 | PROVIDERS: ATTEND Physician Assistant | DX: Z12.31 Encounter for screening mammogram for malignant neoplasm of breast (principal); Z80.3 Family history of malignant neoplasm of breast ==

== ENCOUNTER → 2022-09-06 | Outpatient (REF) | payer OTHER ==
[2022-09-06 17:15] LABS: HEMATOCRIT 36.6 % (36.0-47.0); HEMOGLOBIN 12.7 g/dl (12.0-15.5); MEAN CORPUSCULAR HEMOGLOBIN 31.7 pg (27.0-33.0); MEAN CORPUSCULAR HGB CONC 34.7 g/dl (32.0-36.5); MEAN CORPUSCULAR VOLUME 91.3 fl (80.0-96.0); RED BLOOD COUNT 4.01 10^6/uL (4.00-5.40); WHITE BLOOD COUNT 4.2 10^3/uL (4.0-10.0)
[2022-09-06 17:26] LABS: PLATELET COUNT, AUTOMATED 86 10^3/uL (150-450)
[2022-09-06 17:50] LABS: ALKALINE PHOSPHATASE 135 U/L (46-116); ALT/SGPT 22 U/L (7.0-40); AST/SGOT 37 U/L (<34); BILIRUBIN,TOTAL 3.1 MG/DL (0.3-1.2); BLOOD UREA NITROGEN 21 MG/DL (9-23); CALCIUM LEVEL 8.3 MG/DL (8.5-10.1); CARBON DIOXIDE LEVEL 25 MMOL/L (20-31); CHLORIDE LEVEL 107 MMOL/L (98-107); CREATININE FOR GFR 0.68 MG/DL (0.55-1.30); GLOMERULAR FILTRATION RATE > 60.0 (>58); GLUCOSE, FASTING 80 MG/DL (60-100); POTASSIUM SERUM 4.1 MMOL/L (3.5-5.1); SODIUM LEVEL 140 MMOL/L (136-145); TRIGLYCERIDES LEVEL 61 MG/DL (<150)
[2022-09-06 17:51] LABS: ALBUMIN 2.8 G/DL (3.2-5.2); CHOLESTEROL LEVEL 162 MG/DL (<200); CHOLESTEROL RISK RATIO 2.56 (<5); HDL CHOLESTEROL 63.1 MG/DL (>40); LDL CHOLESTEROL 86.7 MG/DL (<100); NON-HDL-C 98.9 MG/DL; THYROID STIMULATING HORMONE 2.298 uIU/ML (0.55-4.78); TOTAL PROTEIN 6.4 G/DL (5.7-8.2)
== END ==
LOC: M LAB REF 16:19
PROVIDERS: ATTEND Physician Assistant
DX: I10 Essential (primary) hypertension (principal); E55.9 Vitamin D deficiency, unspecified

== ENCOUNTER → 2022-10-02 | Outpatient (CLI) | payer OTHER | LOC: M RAD 07:59 | PROVIDERS: ATTEND Physician Assistant | DX: K74.60 Unspecified cirrhosis of liver (principal); I85.00 Esophageal varices without bleeding; D69.59 Other secondary thrombocytopenia; R10.13 Epigastric pain; R16.1 Splenomegaly, not elsewhere classified; R14.0 Abdominal distension (gaseous); K80.20 Calculus of gallbladder without cholecystitis without obstruction ==

== ENCOUNTER → 2022-12-27 | Outpatient (REF) | payer OTHER ==
[2022-12-27 17:33] LABS: BASO # 0.1 10^3/uL (0.0-0.2); BASO % 1.1 % (0.0-1.0); EOS # 0.2 10^3/uL (0.0-0.5); EOS % 5.2 % (0.0-3.0); HEMATOCRIT 38.1 % (36.0-47.0); HEMOGLOBIN 13.2 g/dl (12.0-15.5); LYMPH # 1.2 10^3/uL (1.5-5.0); LYMPH % 26.2 % (24.0-44.0); MEAN CORPUSCULAR HEMOGLOBIN 31.2 pg (27.0-33.0); MEAN CORPUSCULAR HGB CONC 34.6 g/dl (32.0-36.5); MEAN CORPUSCULAR VOLUME 90.1 fl (80.0-96.0); MONO # 0.6 10^3/uL (0.0-0.8); MONO % 13.5 % (2.0-8.0); NEUTROPHILS # 2.4 10^3/uL (1.5-8.5); NEUTROPHILS % 53.5 % (36.0-66.0); RED BLOOD COUNT 4.23 10^6/uL (4.00-5.40); WHITE BLOOD COUNT 4.4 10^3/uL (4.0-10.0)
[2022-12-27 17:53] LABS: ALBUMIN 2.9 G/DL (3.2-5.2); ALKALINE PHOSPHATASE 124 U/L (46-116); ALT/SGPT < 9 U/L (7.0-40); AST/SGOT 41 U/L (<34); BILIRUBIN,TOTAL 2.3 MG/DL (0.3-1.2); BLOOD UREA NITROGEN 17 MG/DL (9-23); CALCIUM LEVEL 8.5 MG/DL (8.5-10.1); CARBON DIOXIDE LEVEL 25 MMOL/L (20-31); CHLORIDE LEVEL 107 MMOL/L (98-107); CREATININE FOR GFR 0.63 MG/DL (0.55-1.30); GLOMERULAR FILTRATION RATE > 60.0 (>58); GLUCOSE, FASTING 93 MG/DL (60-100); SODIUM LEVEL 139 MMOL/L (136-145); TOTAL PROTEIN 6.3 G/DL (5.7-8.2)
[2022-12-27 18:25] LABS: PLATELET COUNT, AUTOMATED 98 10^3/uL (150-450)
== END ==
LOC: M LAB REF 16:23
PROVIDERS: ATTEND Physician Assistant
DX: K74.60 Unspecified cirrhosis of liver (principal); I85.00 Esophageal varices without bleeding; D69.59 Other secondary thrombocytopenia; R10.13 Epigastric pain

== ENCOUNTER → 2023-02-28 | Outpatient (CLI) | payer OTHER ==
[2023-02-28 16:54] LABS: INR 1.48; PROTHROMBIN TIME 17.5 SECONDS (12.5-14.5)
[2023-02-28 17:03] LABS: ALBUMIN 2.7 G/DL (3.2-5.2); BILIRUBIN,DIRECT 1.2 MG/DL (<0.4); TOTAL PROTEIN 6.3 G/DL (5.7-8.2)
== END ==
LOC: M LAB 15:59
PROVIDERS: ATTEND Internal Medicine Gastroenterology
DX: K74.60 Unspecified cirrhosis of liver (principal)

== ENCOUNTER → 2023-04-11 | Outpatient (CLI) | payer OTHER ==
[~2023-04-11] MED LIST changes: +VITA100093 PO
== END ==
LOC: M WHC 09:09
PROVIDERS: ATTEND Nurse Practitioner Family
DX: Z12.31 Encounter for screening mammogram for malignant neoplasm of breast (principal)

== ENCOUNTER 2023-04-20 07:58 | Day surgery (SDC) | payer OTHER ==
[~2023-04-20] VITALS: Ht 160 cm; Wt 69.4 kg
[~2023-04-20 07:58] MED LIST changes: +NS 1,000 ML IV ONE
[2023-04-20] MEDS ORDERED: fentaNYL 100 MCG/2 ML INJECTION As Ordered ONE (08:59)
[2023-04-20] MEDS ORDERED: LIDOCAINE 2% 100MG/5ML SDV (FOR ANES.) As Ordered ONE (08:59)
[2023-04-20] MEDS ORDERED: propofoL 200 MG/20 ML VIAL As Ordered ONE (08:59)
[2023-04-20 09:54] VITALS: BP 106/56; TEMP 97.8; O2SAT 97
== END 2023-04-20 12:05 | disposition home or self-care (01) ==
LOC: M OPP 07:58
PROVIDERS: ATTEND Internal Medicine Gastroenterology
DX: I85.00 Esophageal varices without bleeding (principal); Z79.83 Long term (current) use of bisphosphonates; Z79.899 Other long term (current) drug therapy; Z88.5 Allergy status to narcotic agent; Z91.030 Bee allergy status
CPT/HCPCS: 43235; J3010

== ENCOUNTER → 2023-04-25 | Outpatient (REF) | payer OTHER ==
[~2023-04-25] MED LIST changes: -NS 1,000 ML IV ONE
[2023-04-25 17:29] LABS: BASO % 0.8 % (0.0-1.0); EOS # 0.1 10^3/uL (0.0-0.5); EOS % 3.5 % (0.0-3.0); HEMATOCRIT 39.6 % (36.0-47.0); HEMOGLOBIN 13.6 g/dl (12.0-15.5); LYMPH # 0.7 10^3/uL (1.5-5.0); LYMPH % 17.1 % (24.0-44.0); MEAN CORPUSCULAR HEMOGLOBIN 30.3 pg (27.0-33.0); MEAN CORPUSCULAR HGB CONC 34.3 g/dl (32.0-36.5); MEAN CORPUSCULAR VOLUME 88.2 fl (80.0-96.0); MONO # 0.5 10^3/uL (0.0-0.8); MONO % 13.3 % (2.0-8.0); NEUTROPHILS # 2.6 10^3/uL (1.5-8.5); NEUTROPHILS % 64.8 % (36.0-66.0); RED BLOOD COUNT 4.49 10^6/uL (4.00-5.40)
[2023-04-25 17:34] LABS: PLATELET COUNT, AUTOMATED 80 10^3/uL (150-450)
[2023-04-25 17:54] LABS: ALBUMIN 2.9 G/DL (3.2-5.2); ALKALINE PHOSPHATASE 109 U/L (46-116); ALT/SGPT 25 U/L (7.0-40); AST/SGOT 38 U/L (<34); BILIRUBIN,TOTAL 3.7 MG/DL (0.3-1.2); BLOOD UREA NITROGEN 16 MG/DL (9-23); CALCIUM LEVEL 8.6 MG/DL (8.5-10.1); CARBON DIOXIDE LEVEL 28 MMOL/L (20-31); CHLORIDE LEVEL 104 MMOL/L (98-107); CREATININE FOR GFR 0.67 MG/DL (0.55-1.30); GLOMERULAR FILTRATION RATE > 60.0 (>58); GLUCOSE, FASTING 96 MG/DL (60-100); POTASSIUM SERUM 3.7 MMOL/L (3.5-5.1); SODIUM LEVEL 141 MMOL/L (136-145); TOTAL PROTEIN 6.8 G/DL (5.7-8.2)
== END ==
LOC: M LAB REF 16:38
PROVIDERS: ATTEND Nurse Practitioner Family
DX: D69.59 Other secondary thrombocytopenia (principal); I85.00 Esophageal varices without bleeding; R17 Unspecified jaundice; R10.13 Epigastric pain

== ENCOUNTER → 2023-05-21 | Outpatient (CLI) | payer OTHER, SELFPAY ==
[~2023-05-21] MED LIST changes: +PRED20TA PO
[2023-05-21 17:41] LABS: INR 1.37; PROTHROMBIN TIME 16.5 SECONDS (12.5-14.5)
[2023-05-21 17:42] LABS: PARTIAL THROMBOPLASTIN TIME 34.4 SECONDS (24.8-34.2)
== END ==
LOC: M LAB 16:42
PROVIDERS: ATTEND Nurse Practitioner Family
DX: D69.59 Other secondary thrombocytopenia (principal)

== ENCOUNTER → 2023-08-01 | Outpatient (CLI) | payer OTHER, SELFPAY | LOC: M WHC 09:09 | PROVIDERS: ATTEND Internal Medicine Gastroenterology | DX: K74.60 Unspecified cirrhosis of liver (principal); R18.8 Other ascites; R14.0 Abdominal distension (gaseous) ==

== ENCOUNTER → 2023-08-29 | Outpatient (CLI) | payer OTHER ==
[2023-08-29 11:15] LABS: ALKALINE PHOSPHATASE 103 U/L (46-116); ALT/SGPT 22 U/L (7.0-40); AST/SGOT 36 U/L (<34); BILIRUBIN,DIRECT 1.2 MG/DL (<0.4); BILIRUBIN,TOTAL 3.3 MG/DL (0.3-1.2); BLOOD UREA NITROGEN 18 MG/DL (9-23); GLOMERULAR FILTRATION RATE > 60.0 (>58); TOTAL PROTEIN 6.6 G/DL (5.7-8.2)
[2023-08-29 11:35] LABS: INR 1.45; PROTHROMBIN TIME 17.2 SECONDS (12.5-14.5)
== END ==
LOC: M LAB 09:51
PROVIDERS: ATTEND Internal Medicine Gastroenterology
DX: K74.60 Unspecified cirrhosis of liver (principal)

== ENCOUNTER → 2023-10-31 | Outpatient (CLI) | payer OTHER ==
[~2023-10-31] MED LIST changes: +DOXY-323 PO; -DOXY-443 PO
== END ==
LOC: M WUC 11:24
PROVIDERS: ATTEND Physician Assistant
DX: R06.00 Dyspnea, unspecified (principal)

== ENCOUNTER → 2024-01-17 | Outpatient (CLI) | payer OTHER ==
[2024-01-17 16:36] LABS: BASO % 0.6 % (0.0-1.0); EOS # 0.2 10^3/uL (0.0-0.5); EOS % 4.1 % (0.0-3.0); HEMATOCRIT 40.1 % (36.0-47.0); HEMOGLOBIN 13.9 g/dl (12.0-15.5); LYMPH % 20.9 % (24.0-44.0); MEAN CORPUSCULAR HEMOGLOBIN 30.6 pg (27.0-33.0); MEAN CORPUSCULAR HGB CONC 34.7 g/dl (32.0-36.5); MEAN CORPUSCULAR VOLUME 88.3 fl (80.0-96.0); MONO # 0.4 10^3/uL (0.0-0.8); MONO % 8.1 % (2.0-8.0); NEUTROPHILS # 3.1 10^3/uL (1.5-8.5); NEUTROPHILS % 66.1 % (36.0-66.0); RED BLOOD COUNT 4.54 10^6/uL (4.00-5.40); WHITE BLOOD COUNT 4.7 10^3/uL (4.0-10.0)
[2024-01-17 16:37] LABS: PLATELET COUNT, AUTOMATED 94 10^3/uL (150-450)
[2024-01-17 17:13] LABS: ALBUMIN 3.1 G/DL (3.2-5.2); ALKALINE PHOSPHATASE 103 U/L (46-116); ALT/SGPT 28 U/L (7.0-40); AST/SGOT 48 U/L (<34); BILIRUBIN,TOTAL 4.3 MG/DL (0.3-1.2); BLOOD UREA NITROGEN 14 MG/DL (9-23); CALCIUM LEVEL 8.6 MG/DL (8.5-10.1); CARBON DIOXIDE LEVEL 23 MMOL/L (20-31); CHLORIDE LEVEL 105 MMOL/L (98-107); CREATININE FOR GFR 0.75 MG/DL (0.55-1.30); GLOMERULAR FILTRATION RATE > 60.0 (>58); GLUCOSE, FASTING 90 MG/DL (60-100); POTASSIUM SERUM 3.5 MMOL/L (3.5-5.1); SODIUM LEVEL 136 MMOL/L (136-145); TOTAL PROTEIN 6.9 G/DL (5.7-8.2)
== END ==
LOC: M LAB 15:42
PROVIDERS: ATTEND Radiology Radiation Oncology
DX: D69.6 Thrombocytopenia, unspecified (principal)

== ENCOUNTER 2024-04-02 14:19 | Emergency (ER) | payer OTHER ==
[~2024-04-02] VITALS: Ht 162.6 cm; Wt 70.9 kg
[~2024-04-02 14:19] MED LIST changes: -DOXY-323 PO; +DOXY-441 PO
[2024-04-02 15:04] LABS: BASO % 0.6 % (0.0-1.0); EOS # 0.2 10^3/uL (0.0-0.5); EOS % 4.1 % (0.0-3.0); HEMATOCRIT 40.5 % (36.0-47.0); HEMOGLOBIN 14.2 g/dl (12.0-15.5); LYMPH # 0.9 10^3/uL (1.5-5.0); LYMPH % 18.1 % (24.0-44.0); MEAN CORPUSCULAR HEMOGLOBIN 30.9 pg (27.0-33.0); MEAN CORPUSCULAR HGB CONC 35.1 g/dl (32.0-36.5); MONO # 0.6 10^3/uL (0.0-0.8); MONO % 12.5 % (2.0-8.0); NEUTROPHILS # 3.3 10^3/uL (1.5-8.5); NEUTROPHILS % 64.5 % (36.0-66.0); WHITE BLOOD COUNT 5.1 10^3/uL (4.0-10.0)
[2024-04-02 15:08] LABS: INR 1.28; PROTHROMBIN TIME 15.6 SECONDS (12.5-14.5)
[2024-04-02 15:11] LABS: PLATELET COUNT, AUTOMATED 92 10^3/uL (150-450)
[2024-04-02 15:27] LABS: ABG BASE EXCESS -2.2 (-2.0-2.0); ABG HCO3 20.6 MMOL/L (22.0-26.0); ABG O2 SATURATION 93.9 % (95.0-99.0); ABG PARTIAL PRESSURE CO2 30.2 mmHg (35.0-45.0); ABG PARTIAL PRESSURE O2 72.4 mmHg (75.0-100.0); ABG STANDARD HCO3 22.6 MMOL/L. (22.0-26.0); ABG TOTAL CO2 21.5 MMOL/L (22.0-29.0); ABG pH (ARTERIAL) 7.452 UNITS (7.350-7.450)
[2024-04-02 15:32] LABS: ALBUMIN 3.1 G/DL (3.2-5.2); ALKALINE PHOSPHATASE 107 U/L (46-116); ALT/SGPT 21 U/L (7.0-40); AST/SGOT 38 U/L (<34); BILIRUBIN,DIRECT 1.2 MG/DL (<0.4); BILIRUBIN,TOTAL 3.4 MG/DL (0.3-1.2); BLOOD UREA NITROGEN 17 MG/DL (9-23); CALCIUM LEVEL 8.7 MG/DL (8.5-10.1); CARBON DIOXIDE LEVEL 26 MMOL/L (20-31); CHLORIDE LEVEL 109 MMOL/L (98-107); CREATININE FOR GFR 0.65 MG/DL (0.55-1.30); GLOMERULAR FILTRATION RATE > 60.0 (>58); GLUCOSE, FASTING 72 MG/DL (60-100); POTASSIUM SERUM 3.6 MMOL/L (3.5-5.1); SODIUM LEVEL 140 MMOL/L (136-145); TOTAL PROTEIN 7.2 G/DL (5.7-8.2)
[2024-04-02] MEDS ORDERED: ISOVUE-370 76% 100ML VIAL As Ordered ONE (15:35)
[2024-04-02 20:55] LABS: CK-MB VALUE MASS < 1.0 NG/ML (<3.6); CPK CREATINE PHOSPHOKINASE 176 U/L (34-145); MB/CK RELATIVE INDEX 0.56 (< OR =4)
[2024-04-02 21:36] VITALS: O2SAT 80
[2024-04-02 22:15] VITALS: BP 111/58; TEMP 97.5; O2SAT 92
== END 2024-04-02 22:28 | disposition home or self-care (01) ==
LOC: M ED 14:19
DX: J96.01 Acute respiratory failure with hypoxia (principal); K74.60 Unspecified cirrhosis of liver; R16.1 Splenomegaly, not elsewhere classified; B18.2 Chronic viral hepatitis C; F19.11 Other psychoactive substance abuse, in remission; Z87.442 Personal history of urinary calculi; Z79.899 Other long term (current) drug therapy; Z91.030 Bee allergy status; Z88.5 Allergy status to narcotic agent
CPT/HCPCS: 36600; 71045; 71275; 80048; 80076; 82550; 82553; 82803; 84484; 85025; 85049; 85055; 85610; 93005; 93041; 93306; 94010; 94760; 99205; 99285; Q9967

== ENCOUNTER → 2024-04-16 | Outpatient (CLI) | payer OTHER | LOC: M WHC 08:46 | PROVIDERS: ATTEND Physician Assistant | DX: Z12.31 Encounter for screening mammogram for malignant neoplasm of breast (principal); R92.323 Mammographic fibroglandular density, bilateral breasts ==

== ENCOUNTER → 2024-05-02 | Outpatient (CLI) | payer OTHER ==
[2024-05-02 14:42] LABS: BASO % 0.6 % (0.0-1.0); EOS # 0.2 10^3/uL (0.0-0.5); EOS % 3.8 % (0.0-3.0); HEMATOCRIT 42.2 % (36.0-47.0); HEMOGLOBIN 14.6 g/dl (12.0-15.5); LYMPH # 0.9 10^3/uL (1.5-5.0); LYMPH % 18.1 % (24.0-44.0); MEAN CORPUSCULAR HEMOGLOBIN 30.7 pg (27.0-33.0); MEAN CORPUSCULAR HGB CONC 34.6 g/dl (32.0-36.5); MEAN CORPUSCULAR VOLUME 88.8 fl (80.0-96.0); MONO # 0.4 10^3/uL (0.0-0.8); MONO % 7.7 % (2.0-8.0); NEUTROPHILS # 3.3 10^3/uL (1.5-8.5); NEUTROPHILS % 69.8 % (36.0-66.0); RED BLOOD COUNT 4.75 10^6/uL (4.00-5.40); WHITE BLOOD COUNT 4.7 10^3/uL (4.0-10.0)
[2024-05-02 14:47] LABS: PLATELET COUNT, AUTOMATED 93 10^3/uL (150-450)
[2024-05-02 15:01] LABS: BLOOD UREA NITROGEN 15 MG/DL (9-23); CALCIUM LEVEL 8.9 MG/DL (8.5-10.1); CARBON DIOXIDE LEVEL 25 MMOL/L (20-31); CHLORIDE LEVEL 108 MMOL/L (98-107); GLOMERULAR FILTRATION RATE > 60.0 (>58); GLUCOSE, FASTING 107 MG/DL (60-100); POTASSIUM SERUM 3.8 MMOL/L (3.5-5.1); SODIUM LEVEL 140 MMOL/L (136-145)
== END ==
LOC: M LAB 13:23
PROVIDERS: ATTEND Internal Medicine Cardiovascular Disease
DX: Q21.10 Atrial septal defect, unspecified (principal)

== ENCOUNTER → 2024-07-07 | Outpatient (CLI) | payer OTHER ==
[2024-07-07 14:12] LABS: BASO % 0.6 % (0.0-1.0); EOS # 0.3 10^3/uL (0.0-0.5); EOS % 6.7 % (0.0-3.0); HEMATOCRIT 41.8 % (36.0-47.0); HEMOGLOBIN 14.6 g/dl (12.0-15.5); LYMPH % 21.6 % (24.0-44.0); MEAN CORPUSCULAR HEMOGLOBIN 30.3 pg (27.0-33.0); MEAN CORPUSCULAR HGB CONC 34.9 g/dl (32.0-36.5); MEAN CORPUSCULAR VOLUME 86.7 fl (80.0-96.0); MONO # 0.5 10^3/uL (0.0-0.8); MONO % 11.3 % (2.0-8.0); NEUTROPHILS # 2.9 10^3/uL (1.5-8.5); NEUTROPHILS % 59.8 % (36.0-66.0); RED BLOOD COUNT 4.82 10^6/uL (4.00-5.40); WHITE BLOOD COUNT 4.8 10^3/uL (4.0-10.0)
[2024-07-07 14:43] LABS: ALBUMIN 2.9 G/DL (3.2-5.2); ALKALINE PHOSPHATASE 89 U/L (35-104); ALT/SGPT 19 U/L (7.0-40); AST/SGOT 32 U/L (<34); BILIRUBIN,TOTAL 2.7 MG/DL (0.3-1.2); BLOOD UREA NITROGEN 15 MG/DL (9-23); CALCIUM LEVEL 8.3 MG/DL (8.5-10.1); CARBON DIOXIDE LEVEL 27 MMOL/L (20-31); CHLORIDE LEVEL 106 MMOL/L (98-107); GLOMERULAR FILTRATION RATE > 60.0 (>58); GLUCOSE, FASTING 133 MG/DL (60-100); POTASSIUM SERUM 3.6 MMOL/L (3.5-5.1); SODIUM LEVEL 140 MMOL/L (136-145); TOTAL PROTEIN 7.1 G/DL (5.7-8.2)
[2024-07-07 14:48] LABS: PLATELET COUNT, AUTOMATED 92 10^3/uL (150-450)
== END ==
LOC: M LAB 13:36
PROVIDERS: ATTEND Internal Medicine Gastroenterology
DX: K74.60 Unspecified cirrhosis of liver (principal); R09.02 Hypoxemia

== ENCOUNTER → 2024-07-29 | Outpatient (CLI) | payer OTHER | LOC: M RAD 10:57 | PROVIDERS: ATTEND Internal Medicine Gastroenterology | DX: K74.60 Unspecified cirrhosis of liver (principal); K80.20 Calculus of gallbladder without cholecystitis without obstruction ==

== ENCOUNTER → 2024-08-11 | Outpatient (CLI) | payer OTHER ==
[2024-08-11 15:42] LABS: BASO % 0.6 % (0.0-1.0); EOS # 0.3 10^3/uL (0.0-0.5); EOS % 5.4 % (0.0-3.0); HEMATOCRIT 42.3 % (36.0-47.0); HEMOGLOBIN 14.8 g/dl (12.0-15.5); LYMPH % 19.7 % (24.0-44.0); MEAN CORPUSCULAR VOLUME 88.5 fl (80.0-96.0); MONO # 0.5 10^3/uL (0.0-0.8); MONO % 9.8 % (2.0-8.0); NEUTROPHILS # 3.2 10^3/uL (1.5-8.5); NEUTROPHILS % 64.3 % (36.0-66.0); RED BLOOD COUNT 4.78 10^6/uL (4.00-5.40)
[2024-08-11 15:49] LABS: PLATELET COUNT, AUTOMATED 75 10^3/uL (150-450)
[2024-08-11 16:12] LABS: BLOOD UREA NITROGEN 14 MG/DL (9-23); CALCIUM LEVEL 8.1 MG/DL (8.5-10.1); CARBON DIOXIDE LEVEL 23 MMOL/L (20-31); CHLORIDE LEVEL 109 MMOL/L (98-107); CREATININE FOR GFR 0.62 MG/DL (0.55-1.30); GLOMERULAR FILTRATION RATE > 60.0 (>58); GLUCOSE, FASTING 102 MG/DL (60-100); POTASSIUM SERUM 4.2 MMOL/L (3.5-5.1); SODIUM LEVEL 140 MMOL/L (136-145)
== END ==
LOC: M LAB 15:12
PROVIDERS: ATTEND Internal Medicine Cardiovascular Disease
DX: Q21.10 Atrial septal defect, unspecified (principal)

== ENCOUNTER → 2024-09-15 | Outpatient (CLI) | payer OTHER ==
[2024-09-15 10:46] LABS: HEMATOCRIT 39.4 % (36.0-47.0); HEMOGLOBIN 13.8 g/dl (12.0-15.5); MEAN CORPUSCULAR HEMOGLOBIN 30.9 pg (27.0-33.0); MEAN CORPUSCULAR VOLUME 88.3 fl (80.0-96.0); RED BLOOD COUNT 4.46 10^6/uL (4.00-5.40); WHITE BLOOD COUNT 4.8 10^3/uL (4.0-10.0)
[2024-09-15 10:50] LABS: PLATELET COUNT, AUTOMATED 78 10^3/uL (150-450)
[2024-09-15 11:14] LABS: BLOOD UREA NITROGEN 14 MG/DL (9-23); CALCIUM LEVEL 8.3 MG/DL (8.5-10.1); CARBON DIOXIDE LEVEL 26 MMOL/L (20-31); CHLORIDE LEVEL 108 MMOL/L (98-107); CREATININE FOR GFR 0.71 MG/DL (0.55-1.30); GLOMERULAR FILTRATION RATE > 60.0 (>58); GLUCOSE, FASTING 106 MG/DL (60-100); MAGNESIUM LEVEL 1.8 MG/DL (1.8-2.4); POTASSIUM SERUM 3.7 MMOL/L (3.5-5.1); SODIUM LEVEL 140 MMOL/L (136-145)
== END ==
LOC: M LAB 09:55
PROVIDERS: ATTEND Physician Assistant
DX: R06.02 Shortness of breath (principal)

== ENCOUNTER → 2025-01-09 | Outpatient (CLI) | payer OTHER ==
[2025-01-09 15:04] LABS: BASO # 0.0 10^3/uL (0.0-0.2); BASO % 0.7 % (0.0-1.0); EOS # 0.2 10^3/uL (0.0-0.5); EOS % 4.4 % (0.0-3.0); LYMPH # 0.8 10^3/uL (1.5-5.0); LYMPH % 20.6 % (24.0-44.0); MONO # 0.4 10^3/uL (0.0-0.8); MONO % 9.6 % (2.0-8.0); NEUTROPHILS # 2.6 10^3/uL (1.5-8.5); NEUTROPHILS % 64.5 % (36.0-66.0)
[2025-01-09 15:16] LABS: INR 1.11
[2025-01-09 15:25] LABS: ALT/SGPT 21.0 U/L (7.0-40); AST/SGOT 38.0 U/L (<34); CALCIUM LEVEL 8.7 MG/DL (8.5-10.1); CARBON DIOXIDE LEVEL 24.0 MMOL/L (20-31); CHLORIDE LEVEL 106.0 MMOL/L (98-107); CREATININE FOR GFR 0.83 MG/DL (0.55-1.30); GLOMERULAR FILTRATION RATE 87.5 (>58); POTASSIUM SERUM 3.9 MMOL/L (3.5-5.1); SODIUM LEVEL 143.0 MMOL/L (136-145)
[2025-01-09 15:27] LABS: PLATELET COUNT, AUTOMATED 93 10^3/uL (150-450)
== END ==
LOC: M LAB 14:04
PROVIDERS: ATTEND Internal Medicine Gastroenterology
DX: K74.60 Unspecified cirrhosis of liver (principal); R09.02 Hypoxemia; E78.49 Other hyperlipidemia

== ENCOUNTER → 2025-01-09 | Outpatient (CLI) | payer OTHER ==
[2025-01-09 15:26] LABS: ALT/SGPT 20.0 U/L (7.0-40); AST/SGOT 38.0 U/L (<34); CHOLESTEROL LEVEL 164.0 MG/DL (<200); CHOLESTEROL RISK RATIO 2.59 (<5); CPK CREATINE PHOSPHOKINASE 151.0 U/L (34-145); LDL CHOLESTEROL 89.3 MG/DL (<100); NON-HDL-C 100.9 MG/DL; TRIGLYCERIDES LEVEL 58.0 MG/DL (<150)
== END ==
LOC: M LAB 14:07
PROVIDERS: ATTEND Physician Assistant Medical
DX: E78.49 Other hyperlipidemia (principal)

== ENCOUNTER → 2025-01-19 | Outpatient (CLI) | payer OTHER | LOC: M RAD 09:54 | PROVIDERS: ATTEND Internal Medicine Gastroenterology | DX: K74.60 Unspecified cirrhosis of liver (principal) ==

== ENCOUNTER → 2025-04-28 | Outpatient (CLI) | payer OTHER, MEDICAID ==
[2025-04-28 10:07] LABS: BASO # 0.0 10^3/uL (0.0-0.2); BASO % 0.9 % (0.0-1.0); EOS # 0.2 10^3/uL (0.0-0.5); EOS % 5.1 % (0.0-3.0); LYMPH # 0.8 10^3/uL (1.5-5.0); LYMPH % 17.4 % (24.0-44.0); MONO # 0.5 10^3/uL (0.0-0.8); MONO % 10.5 % (2.0-8.0); NEUTROPHILS # 3.0 10^3/uL (1.5-8.5); NEUTROPHILS % 65.9 % (36.0-66.0)
[2025-04-28 10:10] LABS: ABG BASE EXCESS -1.8 (-2.0-2.0); ABG HCO3 21.3 MMOL/L (22.0-26.0); ABG O2 SATURATION 90.1 % (95.0-99.0); ABG PARTIAL PRESSURE CO2 32.3 mmHg (35.0-45.0); ABG PARTIAL PRESSURE O2 57.1 mmHg (75.0-100.0); ABG STANDARD HCO3 22.8 MMOL/L. (22.0-26.0); ABG TOTAL CO2 22.3 MMOL/L (22.0-29.0); ABG pH (ARTERIAL) 7.438 UNITS (7.350-7.450)
[2025-04-28 10:14] LABS: PLATELET COUNT, AUTOMATED 86 10^3/uL (150-450)
[2025-04-28 10:35] LABS: ALT/SGPT 14 U/L (7.0-40); AST/SGOT 32 U/L (<34); CALCIUM LEVEL 8.5 MG/DL (8.5-10.1); CARBON DIOXIDE LEVEL 26 MMOL/L (20-31); CHLORIDE LEVEL 103 MMOL/L (98-107); CREATININE FOR GFR 0.77 MG/DL (0.55-1.30); GLOMERULAR FILTRATION RATE > 90.0 (>58); POTASSIUM SERUM 3.5 MMOL/L (3.5-5.1); SODIUM LEVEL 137 MMOL/L (136-145)
[2025-04-28 10:36] LABS: INR 1.2
== END ==
LOC: M LAB 09:29
PROVIDERS: ATTEND Psychiatry & Neurology Child & Adolescent Psychiatry
DX: K74.60 Unspecified cirrhosis of liver (principal)

== ENCOUNTER → 2025-05-11 | Outpatient (CLI) | payer OTHER ==
[~2025-05-11] MED LIST changes: +ESSETAB4 PO
== END ==
LOC: M WHC 07:14
PROVIDERS: ATTEND Nurse Practitioner Family
DX: Z12.31 Encounter for screening mammogram for malignant neoplasm of breast (principal)